=== PATIENT | female | born 1940 | race American Indian/Alaskan Native ===

== ENCOUNTER 2017-01-20 11:37 | Inpatient (IN) | payer MEDICARE ==
--- NOTE | 2017-01-20 13:12 | Emergency Department Report ---
ED Lower Extremity HPI - General Chief Complaint: Extremity Injury, Lower Stated Complaint: FALL Time Seen by Provider: 01/20/17 12:53 Source: EMS Mode of arrival: Stretcher Limitations: No Limitations - History of Present Illness Initial Comments: 76-year-old female the past smoking history of arthritis, hypertension, and elevated cholesterol presents to the Hospital complaining of left hip injury and pain since fall last night. Patient was adjusting the shower curtain when she fell landing on her left hip. Patient was assisted up by her family members. Positive pain with ambulation since. Patient was able to ambulate well using a ladder as a crutch for assistance but today was unable to ambulate at all secondary to pain to the left hip. Pain is 0 at rest and rated 8/10 intensity with movement. Patient denies head trauma or other injury. Prior to injury patient was able to ambulate without assistance. - Related Data Allergies Allergy/AdvReac Type Severity Reaction Status Date / Time No Known Allergies Allergy Unverified 01/20/17 12:21 ED Review of Systems ROS: Stated complaint: FALL Other details as noted in HPI Comment: All other systems reviewed and negative Other: Constitutional: No fevers chills Eyes: No eye pain visual changes ENT: No ear pain or throat pain Neck: Denies pain Respiratory: Denies cough wheezing shortness of breath Cardiovascular: Denies chest pain, palpitations, syncope GI: Denies abdominal pain, nausea, vomiting, diarrhea : Denies dysuria Musculoskeletal: As per HPI Skin: Denies rash, lesions, erythema Neurologic: Denies headache, numbness, weakness Psychiatric: Denies suicidal ideation, hallucinations ED Past Medical Hx - Past Medical History Hx Hypertension: Yes Hx Arthritis: Yes Additional medical history: high cholesterol - Surgical History Additional Surgical History: 3 c sections - Social History Smoking Status: Current Every Day Smoker Substance Use Type: None ED Physical Exam - General Limitations: No Limitations - Other Other exam information: General: No limitations, patient is alert in no acute distress Head exam: Atraumatic, normocephalic Eyes exam: Normal appearance, pupils equal reactive to light, extraocular movements intact ENT: Moist mucous membrane, normal oropharynx Neck exam: Normal inspection, full range of motion, no meningismus nontender Respiratory exam: Clear to auscultation bilateral, no wheezes, rales, crackles Cardiovascular: Normal rate and rhythm, normal heart sounds Abdomen: Soft, nondistended, and nontender, with normal bowel sounds, no rebound, or guarding Extremity: Left hip is shortened. Pain with movement to the left hip. Unable to palpate pulses on the left however, pulses identified with doppler Back: Normal Inspection, full range of motion, no tenderness Neurologic: Alert, oriented x3, cranial nerves intact, no motor or sensory deficit Psychiatric: normal affect, normal mood Skin: Warm, dry, intact ED Course Vital Signs 01/20/17 12:45 Temperature 98.4 F Pulse Rate 77 Respiratory 18 Rate Blood Pressure 145/67 [Left] O2 Sat by Pulse 96 Oximetry - Reevaluation(s) Reevaluation #1: 01/20/17 13:11 Patient declined offer for pain medication at this time - Consultations Consultation #1: 01/20/17 13:40 Remy cabinet professional ortho paged, message left on phone 01/20/17 14:07 Remy called back and will consult ED Lower Extremity MDM - Lab Data Result diagrams: 01/20/17 13:05 01/20/17 13:05 Lab Results 01/20/17 01/20/17 01/20/17 Range/Units 13:05 13:05 13:05 WBC 9.3 (4.5-11.0) K/mm3 RBC 4.56 (3.65-5.03) M/mm3 Hgb 13.0 (10.1-14.3) gm/dl Hct 38.0 (30.3-42.9) % MCV 83 (79-97) fl MCH 28 (28-32) pg MCHC 34 (30-34) % RDW 15.4 H (13.2-15.2) % Plt Count 163 (140-440) K/mm3 Lymph % (Auto) 11.7 L (13.4-35.0) % [place] % (Auto) 2.7 (0.0-7.3) % Eos % (Auto) 1.2 (0.0-4.3) % Baso % (Auto) 0.4 (0.0-1.8) % Lymph # 1.1 L (1.2-5.4) K/mm3 [place] # 0.2 (0.0-0.8) K/mm3 Eos # 0.1 (0.0-0.4) K/mm3 Baso # 0.0 (0.0-0.1) K/mm3 Seg Neutrophils % 84.0 H (40.0-70.0) % Seg Neutrophils # 7.8 H (1.8-7.7) K/mm3 PT 13.5 (12.2-14.9) Sec. INR 1.04 (0.87-1.13) APTT 31.4 (24.2-36.6) Sec. Sodium 139 (137-145) mmol/L Potassium 3.7 (3.6-5.0) mmol/L Chloride 97.3 L (98-107) mmol/L Carbon Dioxide 28 (22-30) mmol/L Anion Gap 17 mmol/L BUN 13 (7-17) mg/dL Creatinine 0.8 (0.7-1.2) mg/dL Estimated GFR > 60 ml/min BUN/Creatinine Ratio 16.25 % Glucose 106 H (65-100) mg/dL Calcium 9.7 (8.4-10.2) mg/dL - EKG Data -: EKG Interpreted by Me (sinus rate 73 septal Q waves no ST elevation [place] ) - EKG Data When compared to previous EKG there are: previous EKG unavailable - Radiology Data Radiology results: image reviewed (left hip x-ray: Left hip fracture subcapital) - Medical Decision Making Patient will need admission to the hospital for treatment of left hip fracture - Differential Diagnosis Fracture, contusion, sprain Critical Care Time: No Critical care attestation.: If time is entered above; I have spent that time in minutes in the direct care of this critically ill patient, excluding procedure time. ED Disposition Clinical Impression: Closed left hip fracture, Fall in elderly patient, Arthritis, Hypertension Disposition: OP ADMIT IP TO THIS HOSP Is pt being admited?: Yes Condition: Stable Time of Disposition: 14:01 (Dr Zafar, Hosp)
--- NOTE | 2017-01-20 13:14 | XRay Report ---
LEFT HIP, 2 views: History: Left hip pain after fall. Findings: A subtle subcapital fracture is suspected at the left femoral neck. The acetabulum is intact. No significant joint pathology. IMPRESSION: Left femoral neck fracture.
[2017-01-20 13:27] LABS: Basophils % (Auto) 0.4 % (0.0-1.8); Eosinophils % (Auto) 1.2 % (0.0-4.3); Mean Corpuscular HGB Conc 34 % (30-34); Mean Corpuscular Hemoglobin 28 pg (28-32); Mean Corpuscular Volume 83 fl (79-97); Platelet Count 163 K/mm3 (140-440); Red Blood Count 4.56 M/mm3 (3.65-5.03); Red Cell Distribution Width 15.4 % (13.2-15.2); White Blood Count 9.3 K/mm3 (4.5-11.0)
[2017-01-20 13:37] LABS: INR 1.04 (0.87-1.13); Partial Thromboplastin Time 31.4 Sec. (24.2-36.6)
[2017-01-20 13:58] LABS: Anion Gap 17 mmol/L; BUN/Creatinine Ratio 16.25; Blood Urea Nitrogen 13 mg/dL (7-17); Calcium 9.7 mg/dL (8.4-10.2); Carbon Dioxide 28 mmol/L (22-30); Chloride 97.3 mmol/L (98-107); Glucose 106 mg/dL (65-100); Potassium 3.7 mmol/L (3.6-5.0); Sodium 139 mmol/L (137-145)
--- NOTE | 2017-01-20 16:26 | History and Physical Report ---
History of Present Illness Date of examination: 01/20/17 Chief complaint: Fall down injury History of present illness: 76 year old -[place] female with past medical history significant for hypertension presented to emergency department complaining of fall down injury yesterday evening while she was trying to fix this shower. She failed on her left side and hit her hip. After that she started to feel pain in the right hip. The pain was sharp 8/10 intensity that worsened with movement. No bleeding or most of consciousness. She presented to the emergency department and x-rays showed she has fracture of the left hip. Dr. Alberto from orthopedics was consulted by ED doctor. REVIEW OF SYSTEMS: GENERAL: no weight change, no fatigue, no fever HEAD: no head ache EYES: no blurry vision, no acute visual loss EARS: no hearing loss, no discharge, no earache NOSE: no stuffiness, no sneezing, no discharge MOUTH, THROAT AND NECK: no bleeding gums, no sore throat, no swollen neck CARDIAC: no palpitations, no dyspnea on exertion, no orthopnea, no PND, no edema , no chest pain RESPIRATORY: no shortness of breath, no wheeze, no cough, no sputum, no hemoptysis, no asthma GI: no decreased appetite, no nausea, no vomiting, no dysphagia, no diarrhea, no constipation, no abdominal pain URINARY: no change in frequency, no urgency, no polyuria, no hematuria, no incontinence MUSCULOSKELETAL: no muscle weakness, no pain, no joint stiffness NEUROLOGIC: no loss of sensation/numbness, no tingling, no tremors, no weakness/ paralysis HEMATOLOGIC: no anemia, no easy bruising SKIN: no rashes ENDOCRINE: no heat/cold intolerance, no polyuria, no polydipsia, no thyroid problems, no diabetes PSYCHIATRIC: no anxiety, no depression, no suicidal ideations Past History Past Medical History: hypertension Past Surgical History: Social history: smoking (one pack per day cigarettes), full code. denies: alcohol abuse, prescription drug abuse, IV drug use Family history: no significant family history Medications and Allergies Allergies Allergy/AdvReac Type Severity Reaction Status Date / Time No Known Allergies Allergy Unverified 01/20/17 12:21 Exam - Physical Exam Narrative exam: Not in cardiopulmonary distress. The patient appeared well nourished and normally developed. Vital signs as documented. Head exam is unremarkable. No scleral icterus . Neck is without jugular venous distension, thyromegaly, or carotid bruits. Lungs are clear to auscultation. Cardiac exam reveals regular rate and Rhythm. First and second heart sounds normal. No murmurs, rubs or gallops. Abdominal exam reveals normal bowel sounds, no masses, no organomegaly and no aortic enlargement. Extremities pain and tenderness in the left hip. CLOTHES MODEL: Alert and oriented 3. No focal weakness. - Constitutional Vitals: Temp Pulse Resp BP Pulse Ox 98.4 F 77 18 145/67 96 01/20/17 12:45 01/20/17 12:45 01/20/17 12:45 01/20/17 12:45 01/20/17 12:45 Results - Labs CBC & Chem 7: 01/20/17 13:05 01/20/17 13:05 Labs: Laboratory Last Values WBC 9.3 K/mm3 (4.5-11.0) 01/20/17 13:05 RBC 4.56 M/mm3 (3.65-5.03) 01/20/17 13:05 Hgb 13.0 gm/dl (10.1-14.3) 01/20/17 13:05 Hct 38.0 % (30.3-42.9) 01/20/17 13:05 MCV 83 fl (79-97) 01/20/17 13:05 MCH 28 pg (28-32) 01/20/17 13:05 MCHC 34 % (30-34) 01/20/17 13:05 RDW 15.4 % (13.2-15.2) H 01/20/17 13:05 Plt Count 163 K/mm3 (140-440) 01/20/17 13:05 Lymph % (Auto) 11.7 % (13.4-35.0) L 01/20/17 13:05 [place] % (Auto) 2.7 % (0.0-7.3) 01/20/17 13:05 Eos % (Auto) 1.2 % (0.0-4.3) 01/20/17 13:05 Baso % (Auto) 0.4 % (0.0-1.8) 01/20/17 13:05 Lymph # 1.1 K/mm3 (1.2-5.4) L 01/20/17 13:05 [place] # 0.2 K/mm3 (0.0-0.8) 01/20/17 13:05 Eos # 0.1 K/mm3 (0.0-0.4) 01/20/17 13:05 Baso # 0.0 K/mm3 (0.0-0.1) 01/20/17 13:05 Seg Neutrophils % 84.0 % (40.0-70.0) H 01/20/17 13:05 Seg Neutrophils # 7.8 K/mm3 (1.8-7.7) H 01/20/17 13:05 PT 13.5 Sec. (12.2-14.9) 01/20/17 13:05 INR 1.04 (0.87-1.13) 01/20/17 13:05 APTT 31.4 Sec. (24.2-36.6) 01/20/17 13:05 Sodium 139 mmol/L (137-145) 01/20/17 13:05 Potassium 3.7 mmol/L (3.6-5.0) 01/20/17 13:05 Chloride 97.3 mmol/L (98-107) L 01/20/17 13:05 Carbon Dioxide 28 mmol/L (22-30) 01/20/17 13:05 Anion Gap 17 mmol/L 01/20/17 13:05 BUN 13 mg/dL (7-17) 01/20/17 13:05 Creatinine 0.8 mg/dL (0.7-1.2) 01/20/17 13:05 Estimated GFR > 60 ml/min 01/20/17 13:05 BUN/Creatinine Ratio 16.25 % 01/20/17 13:05 Glucose 106 mg/dL (65-100) H 01/20/17 13:05 Calcium 9.7 mg/dL (8.4-10.2) 01/20/17 13:05 Blood Type O POSITIVE 01/20/17 13:58 Antibody Screen TNR 01/20/17 13:58 MATT Antibody Screen Negative 01/20/17 13:58 Assessment and Plan Assessment and plan: Left hip fracture Fall HTN Active tobacco use -Orthopedic surgeon consulted for left hip fracture fixation -PT consult, case management consult -Patient advised cessation of smoking -We'll resume home blood pressure medication DVT prophylaxis -Heparin Disposition -Admit to surgical floor Advance Directives: Yes VTE prophylaxis?: Chemical Plan of care discussed with patient/family: Yes
[2017-01-20] MEDS ORDERED: HABITROL TD ONE (16:30)
[2017-01-20 17:40] LABS: Bilirubin,Urine NEG (Negative); Blood,Urine NEG (Negative); Ketones,Urine NEG (Negative); Leukocyte Esterase,Urine SM (Negative); Nitrite,Urine NEG (Negative); Protein,Urine <15 mg/dL mg/dL (Negative); Urobilinogen,Urine < 2.0 mg/dL (<2.0)
[2017-01-20] MEDS ORDERED: TYLENOL PO ONE (19:14)
[2017-01-20] MEDS ORDERED: TYLENOL ONE (19:16)
[2017-01-20] MEDS: HEPARIN SUB-Q SCH (22:36)
--- NOTE | 2017-01-21 02:34 | Admit Criteria Form ---
Admission Criteria Documentation: MUSCULOSKELETAL DISEASE GRG Clinical Indications for Admission to Inpatient Care (Place 'X' for any and all applicable criteria): Hospital admission is needed for appropriate care of the patient because of 1 or more of the following: [ X]I. Fracture, dislocation, or other musculoskeletal injury requiring inpatient care(medical) as indicated by 1 or more of the following(4)(5)(6)(7) [ ]a) Vertebral fracture requiring observation for instability or neurologic compromise (8) [ ]b) Compartment syndrome (proven or cannot be ruled out during observation level of care) (9) [ ]c) Limb-threatening injury [ X]d) Major injury requiring inpatient stabilization such as traction initiation or external fixation before internal fixation or closure of complex or open fracture [ ]e) Major injury requiring inpatient treatment after emergency or observation level care (as appropriate) [ ]f) Severe pain requiring acute inpatient management [ ]g) Injury with suspicion of abuse or neglect (eg., child, dependent elderly) [ ]II. Newly diagnosed or suspected bone, joint, or orthopedic device infection (e.g., osteomyelitis, septic arthritis) needing 1 or more of the following(1)(2)(3) [ ]a) IV antibiotics that cannot be initiated in other than inpatient setting (e.g., patient too unstable or home infusion not available) [ ]b) Device removal or replacement [ ]c) Bone or soft tissue debridement [ ]d) Joint drainage (drain placement or repetitive aspirations) [ ]III. Severe rheumatologic disease (e.g., systemic lupus erythematosus, rheumatoid arthritis) with complications or comorbidities (Also use Optimal Recovery Care Criteria or General Recovery Criteria as appropriate on the basis of predominant condition), including 1 or more of the following( 10)(11)(12)(13) [ ]a) Severe infection (e.g., PROOF SORTER infection, sepsis) (14) [ ]b) Respiratory complications, including 1 or more of the following : [ ]i) Pleural effusion with respiratory compromise [ ]ii) Pulmonary hypertension with congestive failure [ ]iii) Respiratory failure [ ]iv) Pulmonary hemorrhage (15) [ ]c) Hematologic disease, including 1 or more of the following: [ ]i) Coagulopathy with bleeding [ ]ii) Thrombosis with hypercoagulable state [ ]iii) Thrombotic thrombocytopenic purpura [ ]d) Cerebritis with seizures, psychosis, or other severe abnormalities [ ]e) Vertebral destruction with monitoring needed for cervical myelopathy& possible respiratory compromise [ ]f) Exacerbation that requires inpatient treatment (e.g., intravenous immunosuppression) (16) [ ]g) Acute renal failure [ ]h) Cerebritis with seizures, psychosis, Altered mental status, or other neurologic abnormalities [ ]i) Pericardial effusion with tamponade [ ]j) Vertebral destruction, with monitoring needed for cervical myelopathy and possible respiratory compromise [ ]IV. Severe vasculitis with complications or comorbidities (Also use Optimal Recovery Care Criteria General Recovery Criteria as appropriate on the basis of predominant condition), including 1 or more of the following(11)(12)(17)(18)(19)(20) [ ]a) Exacerbation that requires inpatient treatment (e.g., intravenous immunosuppression) (19)(21) [ ]b) Pulmonary hemorrhage (15) [ ]c) PROOF SORTER vasculitis with seizures, psychosis, Altered mental status that is severe or persistent, or other severe abnormalities (22) [ ]d) Cerebral infarction [ ]e) Gastrointestinal ischemia [ ]f) Gangrene or threatened amputation [ ]g) Renal failure (16) [ ]h) Other significant complications of vasculitis ( eg., tissue or organ ischemia, organ dysfunction ) [ ]V. Severe myopathy as indicated by 1 or more of the following (28)(29) [ ]a) New onset of airway compromise or inability to swallow [ ]b) Respiratory deterioration with observation needed for impending respiratory failure [ ]c) Exacerbation that requires inpatient treatment (e.g., intravenous immunosuppression) [ ]. Severe crystal gout (arthropathy) indicated by 1 or more of the following (23)(24) [ ]a) Severe pain requiring acute inpatient management [ ]b) Exacerbation that requires inpatient treatment (e.g., intravenous treatment) [ ]VII.Rhabdomyolysis and 1 or more of the following (25)(26)(27) [ ]a) Acute renal failure [ ]b) Need for intravenous hydration after emergency or observation level care (as appropriate) [ ]c) Inability to maintain oral hydration [ ]d) Change in mental status [ ]e) Electrolyte abnormality that remains after emergency or observation level care (as appropriate) [ ]VIII Post amputation complication, as indicated by ANY ONE of the following [ ]a) Infection [ ]b) Dehiscence [ ]c) Myodesis failure [ ]IX. Severe pain requiring acute inpatient management due to musculoskeletal condition [ ]X. Musculoskeletal Disease and ALL of the following: [ ]a) Symptom or finding for which emergency and observation care have failed or are not considered appropriate (Use General Criteria: Observation Care as appropriate) [ ]b) Presence of ANY ONE of the following [ ]i) A General Admission Criteria [ ]ii) A Pediatric General Admission Criteria The original [facility] [employer] content created by [facility] [employer] has been revised. The portions of the content which have been revised are identified through the use of italic text or in bold, and [facility] has neither reviewed nor approved the modified material. All other unmodified content is copyright [facility] [employer]. Please see references footnoted in the original [facility] edition 2016 Admission Criteria Met: Yes
[2017-01-21] MEDS: HEPARIN SUB-Q SCH ×3 (06:16→22:53)
[2017-01-21 07:13] LABS: Basophils % (Auto) 0.1 % (0.0-1.8); Hematocrit 36.5 % (30.3-42.9); Hemoglobin 12.3 gm/dl (10.1-14.3); Mean Corpuscular HGB Conc 34 % (30-34); Mean Corpuscular Hemoglobin 28 pg (28-32); Mean Corpuscular Volume 82 fl (79-97); Platelet Count 138 K/mm3 (140-440); Red Blood Count 4.42 M/mm3 (3.65-5.03); Red Cell Distribution Width 15.3 % (13.2-15.2); White Blood Count 7.7 K/mm3 (4.5-11.0)
[2017-01-21 07:15] LABS: Blood Urea Nitrogen 12 mg/dL (7-17); Calcium 9.6 mg/dL (8.4-10.2); Carbon Dioxide 27 mmol/L (22-30); Glucose 104 mg/dL (65-100)
[2017-01-21 07:16] LABS: Anion Gap 18 mmol/L; Chloride 96.2 mmol/L (98-107); Potassium 3.5 mmol/L (3.6-5.0); Sodium 138 mmol/L (137-145)
--- NOTE | 2017-01-21 11:53 | XRay Report ---
AP CHEST: HISTORY: Fever Mild prominence of the bronchovascular structures is demonstrated bilaterally. This could represent chronic interstitial changes or mild pulmonary edema. There is no evidence for consolidation, pleural effusion or pneumothorax. Heart size is within normal limits. IMPRESSION: Mild congestive changes.
[2017-01-21] MEDS: TENORMIN PO SCH (13:57)
[2017-01-21] MEDS: MORPHINE IV PRN (16:30)
--- NOTE | 2017-01-21 22:35 | Progress Note ---
Assessment and Plan Assessment and plan: 76 year old -[place] female with past medical history significant for hypertension presented to emergency department complaining of fall down injury yesterday evening while she was trying to fix this shower. She failed on her left side and hit her hip. After that she started to feel pain in the right hip. The pain was sharp 8/10 intensity that worsened with movement. No bleeding or most of consciousness. She presented to the emergency department and x-rays showed she has fracture of the left hip. Dr. Alberto from orthopedics was consulted by ED doctor. * Left hip fracture following mechanical fall * Htn * Tobacco abuse * left Hip pain * Dyslipidemia * FEVER-1 EPISODE, NO Obvious infectious source Plan: * supportive care. * Discussed with Nursing, although documented temp early in the morning, no report was given, patient currently afebrile,. If any fever reoccurs will pursue sepsis work up * Start Home Bp MEDS * 15 Mins counselling provided on need to quit tobacco use, patient given resources, she verbalized understanding * Check cxr * Await Ortho Input * NPO after Midnight * DVT/GI proph * Plan of care discussed with patient in detail History Interval history: Patient seen and examined, in no acute distress. she reports congested cough, non productive. ongoing for about a week. she reports mild pain at left hip area. nursing documented an episode of fever that resolved quickly, no reoccurrence. Hospitalist Physical - Constitutional Vitals: Temp Pulse Resp BP Pulse Ox 97.8 F 77 20 141/75 97 01/21/17 15:00 01/21/17 15:00 01/21/17 15:00 01/21/17 15:00 01/21/17 15:00 General appearance: Present: no acute distress, cachectic - EENT Eyes: Present: PERRL, EOM intact ENT: hearing intact, poor dentition - Neck Neck: Present: supple, normal ROM - Respiratory Respiratory effort: normal Respiratory: bilateral: diminished - Cardiovascular Rhythm: regular Heart Sounds: Present: S1 & S2. Absent: systolic murmur - Extremities Extremities: no ischemia, pulses intact, pulses symmetrical, No edema Extremity abnormal: tenderness (left hip) Peripheral Pulses: within normal limits - Abdominal General gastrointestinal: soft, non-tender, non-distended, normal bowel sounds - Integumentary Integumentary: Present: clear, warm, dry - Psychiatric Psychiatric: appropriate mood/affect - Neurologic Neurologic: CNII-XII intact - Allied Health Allied health notes reviewed: nursing Results - Labs CBC & Chem 7: 01/21/17 05:41 01/21/17 05:41 Labs: Laboratory Last Values WBC 7.7 K/mm3 (4.5-11.0) 01/21/17 05:41 RBC 4.42 M/mm3 (3.65-5.03) 01/21/17 05:41 Hgb 12.3 gm/dl (10.1-14.3) 01/21/17 05:41 Hct 36.5 % (30.3-42.9) 01/21/17 05:41 MCV 82 fl (79-97) 01/21/17 05:41 MCH 28 pg (28-32) 01/21/17 05:41 MCHC 34 % (30-34) 01/21/17 05:41 RDW 15.3 % (13.2-15.2) H 01/21/17 05:41 Plt Count 138 K/mm3 (140-440) L 01/21/17 05:41 Lymph % (Auto) 14.4 % (13.4-35.0) 01/21/17 05:41 [place] % (Auto) 4.1 % (0.0-7.3) 01/21/17 05:41 Eos % (Auto) 2.0 % (0.0-4.3) 01/21/17 05:41 Baso % (Auto) 0.1 % (0.0-1.8) 01/21/17 05:41 Lymph # 1.1 K/mm3 (1.2-5.4) L 01/21/17 05:41 [place] # 0.3 K/mm3 (0.0-0.8) 01/21/17 05:41 Eos # 0.2 K/mm3 (0.0-0.4) 01/21/17 05:41 Baso # 0.0 K/mm3 (0.0-0.1) 01/21/17 05:41 Seg Neutrophils % 79.4 % (40.0-70.0) H 01/21/17 05:41 Seg Neutrophils # 6.1 K/mm3 (1.8-7.7) 01/21/17 05:41 PT 13.5 Sec. (12.2-14.9) 01/20/17 13:05 INR 1.04 (0.87-1.13) 01/20/17 13:05 APTT 31.4 Sec. (24.2-36.6) 01/20/17 13:05 Sodium 138 mmol/L (137-145) 01/21/17 05:41 Potassium 3.5 mmol/L (3.6-5.0) L 01/21/17 05:41 Chloride 96.2 mmol/L (98-107) L 01/21/17 05:41 Carbon Dioxide 27 mmol/L (22-30) 01/21/17 05:41 Anion Gap 18 mmol/L 01/21/17 05:41 BUN 12 mg/dL (7-17) 01/21/17 05:41 Creatinine 0.8 mg/dL (0.7-1.2) 01/21/17 05:41 Estimated GFR > 60 ml/min 01/21/17 05:41 BUN/Creatinine Ratio 15.00 % 01/21/17 05:41 Glucose 104 mg/dL (65-100) H 01/21/17 05:41 Calcium 9.6 mg/dL (8.4-10.2) 01/21/17 05:41 Urine Color Yellow (Yellow) 01/20/17 17:22 Urine Turbidity Clear (Clear) 01/20/17 17:22 Urine pH 7.0 (5.0-7.0) 01/20/17 17:22 Ur Specific [place] 1.010 (1.003-1.030) 01/20/17 17:22 Urine Protein <15 mg/dl mg/dL (Negative) 01/20/17 17:22 Urine Glucose (UA) Neg mg/dL (Negative) 01/20/17 17:22 Urine Ketones Neg mg/dL (Negative) 01/20/17 17:22 Urine Blood Neg (Negative) 01/20/17 17:22 Urine Nitrite Neg (Negative) 01/20/17 17:22 Urine Bilirubin Neg (Negative) 01/20/17 17:22 Urine Urobilinogen < 2.0 mg/dL (<2.0) 01/20/17 17:22 Ur Leukocyte Esterase Sm (Negative) 01/20/17 17:22 Urine WBC (Auto) 3.0 /HPF (0.0-6.0) 01/20/17 17:22 Urine RBC (Auto) 2.0 /HPF (0.0-6.0) 01/20/17 17:22 U Epithel Cells (Auto) 1.0 /HPF (0-13.0) 01/20/17 17:22 Blood Type O POSITIVE 01/20/17 13:58 Antibody Screen TNR 01/20/17 13:58 MATT Antibody Screen Negative 01/20/17 13:58 - Imaging and Cardiology Chest x-ray: image reviewed (mild congestion)
[2017-01-21] MEDS ORDERED: PROVENTIL IH PRN (22:42)
[2017-01-21] MEDS: ZOCOR PO SCH (22:53)
[2017-01-22] MEDS: HEPARIN SUB-Q SCH ×3 (06:27→21:21)
[2017-01-22] MEDS: HCTZ PO SCH (09:27)
[2017-01-22] MEDS: NORVASC PO SCH (09:27)
[2017-01-22] MEDS: ZESTRIL PO SCH (09:27)
[2017-01-22] MEDS: TENORMIN PO SCH (09:28)
--- NOTE | 2017-01-22 09:43 | Consultation ---
History of Present Illness - HPI Consult date: 01/22/17 Consult reason: fracture History of present illness: 76-year-old female who complains of left hip pain after a fall in her shower 2 days ago states she was unable to place weight on the left side came to the emergency room where x-rays were taken revealing a displaced femoral neck fracture she denies any other complaints Past History Past Medical History: hypertension Past Surgical History: Social history: smoking (one pack per day cigarettes), full code. denies: alcohol abuse, prescription drug abuse, IV drug use Family history: no significant family history Medications and Allergies Allergies Allergy/AdvReac Type Severity Reaction Status Date / Time Sulfa (Sulfonamide Allergy Mild Itching Verified 01/20/17 21:31 Antibiotics) Home Medications Medication Instructions Recorded Confirmed Last Taken Type Atenolol [Tenormin] 100 mg PO DAILY 01/20/17 01/20/17 01/19/17 History Hydrochlorothiazide [HCTZ] 25 mg PO QDAY 01/20/17 01/20/17 01/19/17 History Lisinopril [Zestril TAB] 40 mg PO QDAY 01/20/17 01/20/17 01/19/17 History Simvastatin [Zocor TAB] 10 mg PO QHS 01/20/17 01/20/17 01/19/17 History amLODIPine [Norvasc] 5 mg PO DAILY 01/20/17 01/20/17 01/19/17 History Active Meds: Active Medications Albuterol (Proventil) 2.5 mg IH Q4HRT PRN PRN Reason: Shortness Of Breath Amlodipine Besylate (Norvasc) 5 mg PO DAILY FOR[facility]LY [facility], [facility]1983 Last Admin: 01/22/17 09:27 Dose: 5 mg Atenolol (Tenormin) 100 mg PO QDAY FOR[facility]LY [facility], [facility]1983 Last Admin: 01/22/17 09:28 Dose: 100 mg Heparin Sodium (Porcine) (Heparin) 5,000 unit SUB-Q Q8HR [facility], [facility]1983 Last Admin: 01/22/17 06:27 Dose: Not Given Hydrochlorothiazide (Hctz) 25 mg PO QDAY FOR[facility], [facility] Last Admin: 01/22/17 09:27 Dose: 25 mg Lisinopril (Zestril) 40 mg PO QDAY FOR[facility] Last Admin: 01/22/17 09:27 Dose: 40 mg Morphine Sulfate (Morphine) 2 mg IV Q6HR PRN PRN Reason: Pain, Moderate (4-6) Last Admin: 01/21/17 16:30 Dose: 2 mg Simvastatin (Zocor) 10 mg PO QHS JOVON Last Admin: 01/21/17 22:53 Dose: 10 mg Physical Examination - Physical exam Narrative exam: Significant musculoskeletal exam reveals apparent shortening of the left lower extremity there is decreased active range of motion she was tender about the groin with mild to moderate swelling passive range of motion limited distal neurovascular status intact A plain x-rays of the pelvis were reviewed by me and show a displaced left femoral neck fracture no other obvious pathology was seen Eyes: PERRL ENT: Positive: clear oral mucosa Respiratory effort: normal Respiratory: bilateral: CTA Rhythm: regular Heart Sounds: Positive: S1 & S2 General gastrointestinal: Positive: soft, non-tender, non-distended, normal bowel sounds Integumentary: clear, warm, dry Neurologic: Positive: CNII-XII intact, moves all extremities, gait normal. Negative: focal deficits - Cervical Spine Neck pain: none Tenderness with palpation: none Full ROM: yes ROM: flexion: normal ROM: extension: normal ROM: rotation right: normal ROM: rotation left: normal ROM: lateral flexion right: normal ROM: lateral flexion left: normal - Lumbar Spine Back pain: none Tenderness with palpation: none Appearance: normal Full ROM: yes ROM: flexion: normal ROM: extension: normal ROM: rotation right: normal ROM: rotation left: normal ROM: lateral flexion right: normal ROM: lateral flexion left: normal Assessment and Plan Displaced left femoral neck fracture Recommendations patient advised to undergo partial hip replacement with bipolar arthroplasty
[2017-01-22] MEDS ORDERED: ZESTRIL PO SCH (10:00)
--- NOTE | 2017-01-22 12:34 | Anesthesia Consultation ---
Anesthesia Consult and Med Hx Date of service: 01/22/17 - Airway Anesthetic Teeth Evaluation: Poor (multiple missing, broken teeth in the bottom) , Dentures (upper) ROM Head & Neck: Adequate Mental/Hyoid Distance: Adequate Mallampati Class: Class II Intubation Access Assessment: Probably Good - Pre-Operative Health Status ASA Pre-Surgery Classification: ASA3 Proposed Anesthetic Plan: Spinal - Pulmonary Hx Smoking: Yes (1 p/d x 62 years) - Cardiovascular System Hx Hypertension: Yes Hx Coronary Artery Disease: No (high cholesterol) - Central Nervous System Hx Psychiatric Problems: No - Other Systems Hx Cancer: No
[2017-01-22] MEDS ORDERED: VERSED IV PRN (12:39)
[2017-01-22] MEDS: NACL 0.9% 1000 ML 1,000 ML IV SCH (12:52)
[2017-01-22] MEDS ORDERED: PEPCID IV NR (13:00)
[2017-01-22] MEDS ORDERED: ANCEF/STERILE WATER 2 GM/20 ML IV NR (13:40)
--- NOTE | 2017-01-22 13:40 | Progress Note ---
Assessment and Plan Assessment and plan: 76 year old -[place] female with past medical history significant for hypertension presented to emergency department complaining of fall down injury yesterday evening while she was trying to fix this shower. She failed on her left side and hit her hip. After that she started to feel pain in the right hip. The pain was sharp 8/10 intensity that worsened with movement. No bleeding or most of consciousness. She presented to the emergency department and x-rays showed she has fracture of the left hip. Dr. Alberto from orthopedics was consulted by ED doctor. * Displaced left femoral neck fracture * Htn * Tobacco abuse * left Hip pain * Dyslipidemia * Bronchitis Plan: * supportive care. * Started on empiric Augmentin * Continue Home Bp MEDS * 15 Mins counselling provided on need to quit tobacco use, patient given resources, she verbalized understanding * Check cxr * Ortho Input -Recommendations patient advised to undergo partial hip replacement with bipolar arthroplasty * PT/OT pos op. * DVT/GI proph * Plan of care discussed with patient in detail History Interval history: Patient seen and examined, in no acute distress. still with intermittent cough but better today, has been ongoing for about a week. she reports mild pain at left hip area. nursing documented Hospitalist Physical - Physical exam Narrative exam: VITAL SIGNS: Reviewed. GENERAL: The patient appeared well nourished and normally developed. Vital signs as documented. HEAD: No signs of head trauma. EYES: Pupils are equal. Extraocular motions intact. EARS: Hearing grossly intact. MOUTH: Oropharynx is normal. NECK: No adenopathy, no JVD. CHEST: Chest with clear breath sounds bilaterally. No wheezes, rales, or rhonchi. CARDIAC: Regular rate and rhythm. S1 and S2, without murmurs, gallops, or rubs. VASCULAR: No Edema. Peripheral pulses normal and equal in all extremities. ABDOMEN: Soft, without detectable tenderness. No sign of distention. No rebound or guarding, and no masses palpated. Bowel Sounds normal. MUSCULOSKELETAL: Left lower extremity rotated and shortened. Tender at the hip. No cyanosis or clubbing noted. NEUROLOGIC EXAM: Alert and oriented x 3. No focal sensory or strength deficits. Speech normal. Follows commands. PSYCHIATRIC: Mood normal. SKIN: No rash or lesions. - Constitutional Vitals: Temp Pulse Resp BP Pulse Ox 99.7 F H 75 24 128/72 100 01/22/17 11:45 01/22/17 11:45 01/22/17 11:45 01/22/17 11:45 01/22/17 11:45 General appearance: Present: no acute distress, cachectic Results - Labs CBC & Chem 7: 01/21/17 05:41 01/21/17 05:41 Labs: Laboratory Last Values WBC 7.7 K/mm3 (4.5-11.0) 01/21/17 05:41 RBC 4.42 M/mm3 (3.65-5.03) 01/21/17 05:41 Hgb 12.3 gm/dl (10.1-14.3) 01/21/17 05:41 Hct 36.5 % (30.3-42.9) 01/21/17 05:41 MCV 82 fl (79-97) 01/21/17 05:41 MCH 28 pg (28-32) 01/21/17 05:41 MCHC 34 % (30-34) 01/21/17 05:41 RDW 15.3 % (13.2-15.2) H 01/21/17 05:41 Plt Count 138 K/mm3 (140-440) L 01/21/17 05:41 Lymph % (Auto) 14.4 % (13.4-35.0) 01/21/17 05:41 [place] % (Auto) 4.1 % (0.0-7.3) 01/21/17 05:41 Eos % (Auto) 2.0 % (0.0-4.3) 01/21/17 05:41 Baso % (Auto) 0.1 % (0.0-1.8) 01/21/17 05:41 Lymph # 1.1 K/mm3 (1.2-5.4) L 01/21/17 05:41 [place] # 0.3 K/mm3 (0.0-0.8) 01/21/17 05:41 Eos # 0.2 K/mm3 (0.0-0.4) 01/21/17 05:41 Baso # 0.0 K/mm3 (0.0-0.1) 01/21/17 05:41 Seg Neutrophils % 79.4 % (40.0-70.0) H 01/21/17 05:41 Seg Neutrophils # 6.1 K/mm3 (1.8-7.7) 01/21/17 05:41 PT 13.5 Sec. (12.2-14.9) 01/20/17 13:05 INR 1.04 (0.87-1.13) 01/20/17 13:05 APTT 31.4 Sec. (24.2-36.6) 01/20/17 13:05 Sodium 138 mmol/L (137-145) 01/21/17 05:41 Potassium 3.5 mmol/L (3.6-5.0) L 01/21/17 05:41 Chloride 96.2 mmol/L (98-107) L 01/21/17 05:41 Carbon Dioxide 27 mmol/L (22-30) 01/21/17 05:41 Anion Gap 18 mmol/L 01/21/17 05:41 BUN 12 mg/dL (7-17) 01/21/17 05:41 Creatinine 0.8 mg/dL (0.7-1.2) 01/21/17 05:41 Estimated GFR > 60 ml/min 01/21/17 05:41 BUN/Creatinine Ratio 15.00 % 01/21/17 05:41 Glucose 104 mg/dL (65-100) H 01/21/17 05:41 Calcium 9.6 mg/dL (8.4-10.2) 01/21/17 05:41 Urine Color Yellow (Yellow) 01/20/17 17:22 Urine Turbidity Clear (Clear) 01/20/17 17:22 Urine pH 7.0 (5.0-7.0) 01/20/17 17:22 Ur Specific [place] 1.010 (1.003-1.030) 01/20/17 17:22 Urine Protein <15 mg/dl mg/dL (Negative) 01/20/17 17:22 Urine Glucose (UA) Neg mg/dL (Negative) 01/20/17 17:22 Urine Ketones Neg mg/dL (Negative) 01/20/17 17:22 Urine Blood Neg (Negative) 01/20/17 17:22 Urine Nitrite Neg (Negative) 01/20/17 17:22 Urine Bilirubin Neg (Negative) 01/20/17 17:22 Urine Urobilinogen < 2.0 mg/dL (<2.0) 01/20/17 17:22 Ur Leukocyte Esterase Sm (Negative) 01/20/17 17:22 Urine WBC (Auto) 3.0 /HPF (0.0-6.0) 01/20/17 17:22 Urine RBC (Auto) 2.0 /HPF (0.0-6.0) 01/20/17 17:22 U Epithel Cells (Auto) 1.0 /HPF (0-13.0) 01/20/17 17:22 Blood Type O POSITIVE 01/20/17 13:58 Antibody Screen TNR 01/20/17 13:58 MATT Antibody Screen Negative 01/20/17 13:58
[2017-01-22] MEDS ORDERED: DILAUDID ONE ×2 (14:37→16:03)
[2017-01-22] MEDS ORDERED: DIPRIVAN 10 MG/ML IV ONE (14:37)
[2017-01-22] MEDS ORDERED: XYLOCAINE MPF 2% ONE (14:37)
[2017-01-22] MEDS ORDERED: MARCAINE-EPI 0.5%-1:200,000 INFILTRATI ONE ×2 (14:38→16:35)
[2017-01-22] MEDS ORDERED: TORADOL ONE (14:38)
[2017-01-22] MEDS ORDERED: DEPO-MEDROL ONE (14:38)
[2017-01-22] MEDS ORDERED: MORPHINE ONE (14:39)
[2017-01-22] MEDS ORDERED: ZOFRAN ONE (15:24)
[2017-01-22] MEDS ORDERED: NACL 0.9% 1000 ML 1,000 ML ONE (16:00)
[2017-01-22] MEDS ORDERED: TORADOL IV ONE (16:35)
[2017-01-22] MEDS ORDERED: MORPHINE IM ONE (16:35)
--- NOTE | 2017-01-22 17:24 | Post Anesthesia Evaluation ---
- Post Anesthesia Evaluation Patient Participated: Yes Airway Patent: Yes Stable Respiratory Function: Yes Temp > 96.8F: Yes Pain Manageable: Yes Adequeate Hydration: Yes Anesthesia Complications: No Block Receding Appropriately: Not Applicable
--- NOTE | 2017-01-22 18:25 | Procedure Note ---
Date of procedure: 01/22/17 Pre-op diagnosis: left femoral neck fracture Post-op diagnosis: same Procedure: Procedure - left bipolar hemiarthroplasty Indications - 76-year-old female fell at home in the shower sustaining a displaced femoral neck fracture Procedure She was brought to the OR placed the OR table in supine position following induction and intubation by anesthesia the patient was turned into the right lateral decubitus position next the left hip was prepped and draped in the usual sterile manner. A timeout procedure was done to identify the patient and the proper operative site next lateral incision was made over the greater trochanter and taken down through skin and subcutaneous day fascia vladimir was identified and the incision was carried down in line with the structure next the lower extremity was externally rotated the anterior capsule was entered the fracture site was identified using a small broach the femoral neck was cut in line with the prosthesis. The head fragment was seen still in the acetabulum using a corkscrew instrument head was retrieved and measured. A 48 mm head was chosen using the cookie-cutter and a rasp the proximal medullary canal was reamed to a #9 stem trial sizing was begun. A #9 stem with a neutral neck and a 28 mm head and a 48 mm cup was chosen and hip was reduced and taken through a range of motion and was found to be stable and Trial components were removed Joint was copiously irrigated, The final components were inserted in the correct version hip was taken through a range of motion and was found to be stable. The wound was closed in a standard routine fashion. Dressings were applied the patient tolerated the procedure and there were no complications Anesthesia: GETA Surgeon: BEATRIZ JOHNSON (assistant director of security Kade Gutierrez) Estimated blood loss: other (300 mL) Pathology: none Condition: stable Disposition: PACU
[2017-01-22] MEDS ORDERED: SODIUM CHLORIDE FLUSH SYRINGE 10 ML IV NR (19:00)
[2017-01-22] MEDS: MORPHINE IV PRN (19:38)
[2017-01-22] MEDS: ANCEF/NS 1 GM/50 ML 1 GM/50 ML BAG IV SCH (20:33)
[2017-01-22] MEDS: AUGMENTIN 875 MG PO SCH (21:20)
[2017-01-22] MEDS: ZOCOR PO SCH (21:21)
[2017-01-23] MEDS ORDERED: ANCEF/NS 1 GM/50 ML 1 GM/50 ML BAG IV SCH (04:00)
[2017-01-23] MEDS: ANCEF/NS 1 GM/50 ML 1 GM/50 ML BAG IV SCH (04:03)
[2017-01-23] MEDS: HEPARIN SUB-Q SCH ×3 (05:49→22:57)
[2017-01-23] MEDS: NACL 0.9% 1000 ML 1,000 ML IV SCH ×2 (05:50→05:58)
[2017-01-23 06:48] LABS: Hematocrit 31.5 % (30.3-42.9); Hemoglobin 10.4 gm/dl (10.1-14.3)
--- NOTE | 2017-01-23 09:27 | Progress Note ---
Subjective Date of service: 01/23/17 Principal diagnosis: Displaced femoral fracture Interval history: Patient seen post-op say 1, comfortable, satisfied with anesthesia, not yet ambulating, demonstrated some confusion, answered questions appropriately. Objective - Constitutional Vitals: Vital Signs - 12hr 01/22/17 01/22/17 01/23/17 22:00 23:00 07:00 Temperature 98.5 F 100.8 F H Pulse Rate 82 95 H Respiratory 16 16 20 Rate Respiratory 16 Rate [Left Hip] Blood Pressure 137/71 162/72 O2 Sat by Pulse 100 82 L Oximetry - Labs CBC & Chem 7: 01/23/17 05:14 01/21/17 05:41
[2017-01-23] MEDS: AUGMENTIN 875 MG PO SCH ×2 (09:28→22:00)
[2017-01-23] MEDS: NORVASC PO SCH (09:29)
[2017-01-23] MEDS: HCTZ PO SCH (09:29)
[2017-01-23] MEDS: TENORMIN PO SCH (09:29)
[2017-01-23] MEDS: ZESTRIL PO SCH (09:30)
[2017-01-23] MEDS ORDERED: K-DUR PO ONE (11:00)
--- NOTE | 2017-01-23 14:45 | Progress Note ---
Assessment and Plan Assessment and plan: 76 year old -[place]inese female with past medical history significant for hypertension presented to emergency department complaining of fall down injury yesterday evening while she was trying to fix this shower. She failed on her left side and hit her hip. After that she started to feel pain in the right hip. The pain was sharp 8/10 intensity that worsened with movement. No bleeding or most of consciousness. She presented to the emergency department and x-rays showed she has fracture of the left hip. Dr. Alberto from orthopedics was consulted by ED doctor. * Displaced left femoral neck fracture S/P- left bipolar hemiarthroplasty * Htn * Tobacco abuse * Low grade temp. No evidence of sepsis * left Hip pain * Dyslipidemia * Bronchitis Plan: * supportive care. * Continue on empiric Augmentin * Continue Home Bp Meds * 15 Mins counselling provided on need to quit tobacco use, patient given resources, she verbalized understanding * Mild congestive changes on xray without any infectious process noted. * D/C johnson once ok with Ortho. * Pain control per Ortho * PT/OT pos op. * DVT/GI proph * Plan of care discussed with patient in detail History Interval history: Patient seen and examined, in no acute distress. Cough persist, non productive, s/p left bipolar hemiarthroplasty with no complications noted. No adverse event reported to me Hospitalist Physical - Physical exam Narrative exam: VITAL SIGNS: Reviewed. GENERAL: The patient appeared well nourished and normally developed. Vital signs as documented. HEAD: No signs of head trauma. EYES: Pupils are equal. Extraocular motions intact. EARS: Hearing grossly intact. MOUTH: Oropharynx is normal. NECK: No adenopathy, no JVD. CHEST: Chest with clear breath sounds bilaterally. No wheezes, rales, or rhonchi. CARDIAC: Regular rate and rhythm. S1 and S2, without murmurs, gallops, or rubs. VASCULAR: No Edema. Peripheral pulses normal and equal in all extremities. ABDOMEN: Soft, without detectable tenderness. No sign of distention. No rebound or guarding, and no masses palpated. Bowel Sounds normal. MUSCULOSKELETAL: Left lower extremity tender at the hip, dressing in place. No drainage noted. No cyanosis or clubbing noted. NEUROLOGIC EXAM: Alert and oriented x 3. No focal sensory or strength deficits. Speech normal. Follows commands. PSYCHIATRIC: Mood normal. SKIN: No rash or lesions. - Constitutional Vitals: Temp Pulse Resp BP Pulse Ox 100.8 F H 95 H 20 162/72 97 01/23/17 07:00 01/23/17 07:00 01/23/17 07:00 01/23/17 07:00 01/23/17 14:31 General appearance: Present: no acute distress, cachectic Results - Labs CBC & Chem 7: 01/23/17 05:14 01/21/17 05:41 Labs: Laboratory Last Values WBC 7.7 K/mm3 (4.5-11.0) 01/21/17 05:41 RBC 4.42 M/mm3 (3.65-5.03) 01/21/17 05:41 Hgb 10.4 gm/dl (10.1-14.3) 01/23/17 05:14 Hct 31.5 % (30.3-42.9) 01/23/17 05:14 MCV 82 fl (79-97) 01/21/17 05:41 MCH 28 pg (28-32) 01/21/17 05:41 MCHC 34 % (30-34) 01/21/17 05:41 RDW 15.3 % (13.2-15.2) H 01/21/17 05:41 Plt Count 138 K/mm3 (140-440) L 01/21/17 05:41 Lymph % (Auto) 14.4 % (13.4-35.0) 01/21/17 05:41 [place] % (Auto) 4.1 % (0.0-7.3) 01/21/17 05:41 Eos % (Auto) 2.0 % (0.0-4.3) 01/21/17 05:41 Baso % (Auto) 0.1 % (0.0-1.8) 01/21/17 05:41 Lymph # 1.1 K/mm3 (1.2-5.4) L 01/21/17 05:41 [place] # 0.3 K/mm3 (0.0-0.8) 01/21/17 05:41 Eos # 0.2 K/mm3 (0.0-0.4) 01/21/17 05:41 Baso # 0.0 K/mm3 (0.0-0.1) 01/21/17 05:41 Seg Neutrophils % 79.4 % (40.0-70.0) H 01/21/17 05:41 Seg Neutrophils # 6.1 K/mm3 (1.8-7.7) 01/21/17 05:41 PT 13.5 Sec. (12.2-14.9) 01/20/17 13:05 INR 1.04 (0.87-1.13) 01/20/17 13:05 APTT 31.4 Sec. (24.2-36.6) 01/20/17 13:05 Sodium 138 mmol/L (137-145) 01/21/17 05:41 Potassium 3.5 mmol/L (3.6-5.0) L 01/21/17 05:41 Chloride 96.2 mmol/L (98-107) L 01/21/17 05:41 Carbon Dioxide 27 mmol/L (22-30) 01/21/17 05:41 Anion Gap 18 mmol/L 01/21/17 05:41 BUN 12 mg/dL (7-17) 01/21/17 05:41 Creatinine 0.8 mg/dL (0.7-1.2) 01/21/17 05:41 Estimated GFR > 60 ml/min 01/21/17 05:41 BUN/Creatinine Ratio 15.00 % 01/21/17 05:41 Glucose 104 mg/dL (65-100) H 01/21/17 05:41 Calcium 9.6 mg/dL (8.4-10.2) 01/21/17 05:41 Urine Color Yellow (Yellow) 01/20/17 17:22 Urine Turbidity Clear (Clear) 01/20/17 17:22 Urine pH 7.0 (5.0-7.0) 01/20/17 17:22 Ur Specific [place] 1.010 (1.003-1.030) 01/20/17 17:22 Urine Protein <15 mg/dl mg/dL (Negative) 01/20/17 17:22 Urine Glucose (UA) Neg mg/dL (Negative) 01/20/17 17:22 Urine Ketones Neg mg/dL (Negative) 01/20/17 17:22 Urine Blood Neg (Negative) 01/20/17 17:22 Urine Nitrite Neg (Negative) 01/20/17 17:22 Urine Bilirubin Neg (Negative) 01/20/17 17:22 Urine Urobilinogen < 2.0 mg/dL (<2.0) 01/20/17 17:22 Ur Leukocyte Esterase Sm (Negative) 01/20/17 17:22 Urine WBC (Auto) 3.0 /HPF (0.0-6.0) 01/20/17 17:22 Urine RBC (Auto) 2.0 /HPF (0.0-6.0) 01/20/17 17:22 U Epithel Cells (Auto) 1.0 /HPF (0-13.0) 01/20/17 17:22 Blood Type O POSITIVE 01/20/17 13:58 Antibody Screen TNR 01/20/17 13:58 MATT Antibody Screen Negative 01/20/17 13:58
[2017-01-23] MEDS ORDERED: PROVENTIL IH PRN (15:38)
[2017-01-23] MEDS ORDERED: TYLENOL PO PRN (16:15)
[2017-01-23] MEDS: MORPHINE IV PRN (16:20)
[2017-01-23] MEDS ORDERED: LEVAQUIN 750MG/150ML 750 MG/150 ML BAG IV SCH (17:00)
--- NOTE | 2017-01-23 21:07 | Progress Note ---
Assessment and Plan Displaced left femoral neck fracture Recommendations patient advised to undergo partial hip replacement with bipolar arthroplasty Subjective Date of service: 01/23/17 Principal diagnosis: Displaced femoral fracture Interval history: Somewhat confused otherwise doing well Objective Vital signs: Vital Signs - 12hr 01/23/17 01/23/17 14:31 16:00 Temperature 102.7 F H Pulse Rate 89 Respiratory 18 Rate Blood Pressure 138/64 O2 Sat by Pulse 97 Oximetry Narrative Exam: Left hip postoperative dressings intact and compartments soft - Labs CBC & BMP: 01/23/17 05:14 01/21/17 05:41
[2017-01-23] MEDS: DUONEB *Not for PRN Use IH SCH ×2 (21:34→21:38)
[2017-01-23] MEDS: ZOCOR PO SCH (21:59)
[2017-01-24] MEDS: HEPARIN SUB-Q SCH ×2 (05:57→20:05)
[2017-01-24 06:05] LABS: Hematocrit 28.6 % (30.3-42.9); Hemoglobin 9.5 gm/dl (10.1-14.3); Mean Corpuscular HGB Conc 33 % (30-34); Mean Corpuscular Hemoglobin 28 pg (28-32); Mean Corpuscular Volume 85 fl (79-97); Platelet Count 143 K/mm3 (140-440); Red Blood Count 3.36 M/mm3 (3.65-5.03); Red Cell Distribution Width 14.8 % (13.2-15.2); White Blood Count 10.2 K/mm3 (4.5-11.0)
[2017-01-24 06:18] LABS: Anion Gap 17 mmol/L; BUN/Creatinine Ratio 21.66; Blood Urea Nitrogen 13 mg/dL (7-17); Calcium 9.1 mg/dL (8.4-10.2); Carbon Dioxide 27 mmol/L (22-30); Chloride 103.8 mmol/L (98-107); Glucose 134 mg/dL (65-100); Potassium 4.4 mmol/L (3.6-5.0); Sodium 143 mmol/L (137-145)
[2017-01-24] MEDS: DUONEB *Not for PRN Use IH SCH ×3 (07:41→20:13)
--- NOTE | 2017-01-24 08:36 | XRay Report ---
AP CHEST :01/23/17 CLINICAL: Sepsis. COMPARISON:01/21/17 and 03/16/10 FINDINGS: Normal heart and pulmonary vasculature. Prominent bilateral interstitial opacities are unchanged compared to the last exam. They are greater in the lower lobes. No airspace disease or pleural effusion. Normal heart size. The pulmonary vessels are normal. Aortic tortuosity. The bones and soft tissues are normal. IMPRESSION: No change. Chronic interstitial disease.
--- NOTE | 2017-01-24 09:46 | Discharge Summary ---
Providers - Providers Date of Admission: 01/20/17 18:17 Date of discharge: 01/24/17 Attending physician: RTISTIN JUAREZ MD 01/22/17 18:53 Physical Therapy Evaluation and Treat [CONS] Routine Comment: Reason For Exam: postop evaluation Weight bearing status?: Partial wt bearing Assistive devices?: Yes If so list: Walker Primary care physician: [employer] Hospitalization Reason for admission: hip fracture Condition: Stable Hospital course: 76 year old -[place] female with past medical history significant for hypertension presented to emergency department complaining of fall down injury yesterday evening while she was trying to fix this shower. She failed on her left side and hit her hip. After that she started to feel pain in the right hip. The pain was sharp 8/10 intensity that worsened with movement. No bleeding or most of consciousness. She presented to the emergency department and x-rays showed she has fracture of the left hip. Dr. Alberto from orthopedics was consulted by ED doctor. Patient proceeded to have a left bipolar hemiarthroplasty done without any complications Patient did have an episode of temperature increased to 102.6, this subsequently resolved. Blood cultures were done which were all unremarkable. She did have a repeat low- grade fever and there was concern for aspiration pneumonitis also started on a broader spectrum antibiotic with good improvement. Incentive spirometer was also on a Ybarra catheter was discontinued. PaContinue patient by mouth blood pressure control on discharge. Incentive spirometer recommended. Also patient recommended to follow with acetylene cutter outpatient * Displaced left femoral neck fracture S/P- left bipolar hemiarthroplasty * COPD * Htn * Tobacco abuse * Aspiration pneumonitis * left Hip pain * Dyslipidemia * Bronchitis C Disposition: [id number] [facility] C[facility] Time spent for discharge: 35 MINS Core Measure Documentation - Palliative Care Palliative Care/ Comfort Measures: Not Applicable - Core Measures Any of the following diagnoses?: history only - VTE Discharge Requirements Deep Vein Thrombosis/Pulmonary Embolism Present on Admission: No Exam - Physical Exam Narrative exam: VITAL SIGNS: Reviewed. GENERAL: The patient appeared well nourished and normally developed. Vital signs as documented. HEAD: No signs of head trauma. EYES: Pupils are equal. Extraocular motions intact. EARS: Hearing grossly intact. MOUTH: Oropharynx is normal. NECK: No adenopathy, no JVD. CHEST: Chest with diminished breath sounds bilaterally. No wheezes, rales, or rhonchi. CARDIAC: Regular rate and rhythm. S1 and S2, without murmurs, gallops, or rubs. VASCULAR: No Edema. Peripheral pulses normal and equal in all extremities. ABDOMEN: Soft, without detectable tenderness. No sign of distention. No rebound or guarding, and no masses palpated. Bowel Sounds normal. MUSCULOSKELETAL: Left lower extremity tender at the hip, dressing in place. No drainage noted. No cyanosis or clubbing noted. NEUROLOGIC EXAM: Alert and oriented x 3. No focal sensory or strength deficits. Speech normal. Follows commands. PSYCHIATRIC: Mood normal. SKIN: No rash or lesions. - Constitutional Vitals: Temp Pulse Resp BP Pulse Ox 98.5 F 94 H 20 156/71 100 01/24/17 07:15 01/24/17 07:15 01/24/17 07:15 01/24/17 07:15 01/24/17 08:43 Plan Activity: advance as tolerated, fall precautions Diet: low fat Special Instructions: record daily BP diary, smoking cessation Additional Instructions: follow with pulmonary for copd eval Follow up with: PRIMARY MD ROSY [Primary Care Provider] - 3-5 Days BEATRIZ ALBERTO MD [Staff Physician] - 7 Days CATALINA STALLWORTH MD [Staff Physician] - 7 Days Prescriptions: Apixaban [Eliquis] 2.5 mg PO BID 35 Days Levofloxacin [Levaquin TAB] 750 mg PO DAILY #10 tablet
[2017-01-24] MEDS: LEVAQUIN 750MG/150ML 750 MG/150 ML BAG IV SCH (12:50)
[2017-01-24] MEDS: AUGMENTIN 875 MG PO SCH ×2 (12:53→23:02)
[2017-01-24] MEDS: TENORMIN PO SCH (12:53)
[2017-01-24] MEDS: HCTZ PO SCH (12:53)
[2017-01-24] MEDS: NORVASC PO SCH (12:54)
--- NOTE | 2017-01-24 13:35 | Progress Note ---
Assessment and Plan Assessment and plan: 76 year old -[place] female with past medical history significant for hypertension presented to emergency department complaining of fall down injury yesterday evening while she was trying to fix this shower. She failed on her left side and hit her hip. After that she started to feel pain in the right hip. The pain was sharp 8/10 intensity that worsened with movement. No bleeding or most of consciousness. She presented to the emergency department and x-rays showed she has fracture of the left hip. Dr. Alberto from orthopedics was consulted by ED doctor. Patient did have an episode of temperature increased to 102.6, this subsequently resolved. Blood cultures were done which were all unremarkable. Patient was started on empiric antibiotic coverage acidosis is negative. Continue patient by mouth blood pressure control on discharge. Incentive spirometer recommended. Also patient recommended to follow with manager clinical pharmacy outpatient * Displaced left femoral neck fracture S/P- left bipolar hemiarthroplasty * COPD * Htn * Tobacco abuse * Aspiration pneumonitis * left Hip pain * Dyslipidemia * Bronchitis Plan: * supportive care. * Continue on empiric Augmentin, levaqin * Continue Home Bp Meds * 15 Mins counselling provided on need to quit tobacco use, patient given resources, she verbalized understanding * Mild congestive changes on xray without any infectious process noted. * Pain control per Ortho * PT/OT pos op. * DVT/GI proph * Plan of care discussed with patient in detail History Interval history: Patient seen and examined, in no acute distress. Nonproductive cough improved s /p left bipolar hemiarthroplasty with no complications noted. No adverse event reported to me Hospitalist Physical - Physical exam Narrative exam: VITAL SIGNS: Reviewed. GENERAL: The patient appeared well nourished and normally developed. Vital signs as documented. HEAD: No signs of head trauma. EYES: Pupils are equal. Extraocular motions intact. EARS: Hearing grossly intact. MOUTH: Oropharynx is normal. NECK: No adenopathy, no JVD. CHEST: Chest with diminished breath sounds bilaterally. No wheezes, rales, or rhonchi. CARDIAC: Regular rate and rhythm. S1 and S2, without murmurs, gallops, or rubs. VASCULAR: No Edema. Peripheral pulses normal and equal in all extremities. ABDOMEN: Soft, without detectable tenderness. No sign of distention. No rebound or guarding, and no masses palpated. Bowel Sounds normal. MUSCULOSKELETAL: Left lower extremity tender at the hip, dressing in place. No drainage noted. No cyanosis or clubbing noted. NEUROLOGIC EXAM: Alert and oriented x 3. No focal sensory or strength deficits. Speech normal. Follows commands. PSYCHIATRIC: Mood normal. SKIN: No rash or lesions. - Constitutional Vitals: Temp Pulse Resp BP Pulse Ox 98.5 F 94 H 20 156/71 100 01/24/17 07:15 01/24/17 07:15 01/24/17 07:15 01/24/17 07:15 01/24/17 08:43 General appearance: Present: no acute distress, cachectic Results - Labs CBC & Chem 7: 01/24/17 05:14 01/24/17 05:14 Labs: Laboratory Last Values WBC 10.2 K/mm3 (4.5-11.0) 01/24/17 05:14 RBC 3.36 M/mm3 (3.65-5.03) L 01/24/17 05:14 Hgb 9.5 gm/dl (10.1-14.3) L 01/24/17 05:14 Hct 28.6 % (30.3-42.9) L 01/24/17 05:14 MCV 85 fl (79-97) 01/24/17 05:14 MCH 28 pg (28-32) 01/24/17 05:14 MCHC 33 % (30-34) 01/24/17 05:14 RDW 14.8 % (13.2-15.2) 01/24/17 05:14 Plt Count 143 K/mm3 (140-440) 01/24/17 05:14 Lymph % (Auto) 14.4 % (13.4-35.0) 01/21/17 05:41 [place] % (Auto) 4.1 % (0.0-7.3) 01/21/17 05:41 Eos % (Auto) 2.0 % (0.0-4.3) 01/21/17 05:41 Baso % (Auto) 0.1 % (0.0-1.8) 01/21/17 05:41 Lymph # 1.1 K/mm3 (1.2-5.4) L 01/21/17 05:41 [place] # 0.3 K/mm3 (0.0-0.8) 01/21/17 05:41 Eos # 0.2 K/mm3 (0.0-0.4) 01/21/17 05:41 Baso # 0.0 K/mm3 (0.0-0.1) 01/21/17 05:41 Seg Neutrophils % 79.4 % (40.0-70.0) H 01/21/17 05:41 Seg Neutrophils # 6.1 K/mm3 (1.8-7.7) 01/21/17 05:41 PT 13.5 Sec. (12.2-14.9) 01/20/17 13:05 INR 1.04 (0.87-1.13) 01/20/17 13:05 APTT 31.4 Sec. (24.2-36.6) 01/20/17 13:05 Sodium 143 mmol/L (137-145) 01/24/17 05:14 Potassium 4.4 mmol/L (3.6-5.0) D 01/24/17 05:14 Chloride 103.8 mmol/L (98-107) 01/24/17 05:14 Carbon Dioxide 27 mmol/L (22-30) 01/24/17 05:14 Anion Gap 17 mmol/L 01/24/17 05:14 BUN 13 mg/dL (7-17) 01/24/17 05:14 Creatinine 0.6 mg/dL (0.7-1.2) L 01/24/17 05:14 Estimated GFR > 60 ml/min 01/24/17 05:14 BUN/Creatinine Ratio 21.66 % 01/24/17 05:14 Glucose 134 mg/dL (65-100) H 01/24/17 05:14 Lactic Acid 1.00 mmol/L (0.7-2.0) 01/23/17 16:51 Calcium 9.1 mg/dL (8.4-10.2) 01/24/17 05:14 Urine Color Yellow (Yellow) 01/20/17 17:22 Urine Turbidity Clear (Clear) 01/20/17 17:22 Urine pH 7.0 (5.0-7.0) 01/20/17 17:22 Ur Specific [place] 1.010 (1.003-1.030) 01/20/17 17:22 Urine Protein <15 mg/dl mg/dL (Negative) 01/20/17 17:22 Urine Glucose (UA) Neg mg/dL (Negative) 01/20/17 17:22 Urine Ketones Neg mg/dL (Negative) 01/20/17 17:22 Urine Blood Neg (Negative) 01/20/17 17:22 Urine Nitrite Neg (Negative) 01/20/17 17:22 Urine Bilirubin Neg (Negative) 01/20/17 17:22 Urine Urobilinogen < 2.0 mg/dL (<2.0) 01/20/17 17:22 Ur Leukocyte Esterase Sm (Negative) 01/20/17 17:22 Urine WBC (Auto) 3.0 /HPF (0.0-6.0) 01/20/17 17:22 Urine RBC (Auto) 2.0 /HPF (0.0-6.0) 01/20/17 17:22 U Epithel Cells (Auto) 1.0 /HPF (0-13.0) 01/20/17 17:22 Blood Type O POSITIVE 01/20/17 13:58 Antibody Screen TNR 01/20/17 13:58 MATT Antibody Screen Negative 01/20/17 13:58 - Imaging and Cardiology Chest x-ray: image reviewed (Chronic interstitial changes)
[2017-01-24] MEDS: ZOCOR PO SCH (23:02)
[2017-01-25] MEDS: HEPARIN SUB-Q SCH ×3 (04:11→16:00)
[2017-01-25] MEDS: NACL 0.9% 1000 ML 1,000 ML IV SCH (06:51)
[2017-01-25] MEDS: DUONEB *Not for PRN Use IH SCH ×2 (09:22→14:36)
[2017-01-25] MEDS: AUGMENTIN 875 MG PO SCH (10:14)
[2017-01-25] MEDS: TENORMIN PO SCH (10:15)
[2017-01-25] MEDS: LEVAQUIN 750MG/150ML 750 MG/150 ML BAG IV SCH (10:15)
[2017-01-25] MEDS: NORVASC PO SCH (10:16)
[2017-01-25] MEDS: HCTZ PO SCH (10:17)
[2017-01-25] MEDS: ZESTRIL PO SCH (10:18)
[2017-01-25 15:33] VITALS: BP 149/70
--- NOTE | 2017-01-25 15:53 | Progress Note ---
Assessment and Plan Assessment and plan: 76 year old -Finnish female with past medical history significant for hypertension presented to emergency department complaining of fall down injury yesterday evening while she was trying to fix this shower. She failed on her left side and hit her hip. After that she started to feel pain in the right hip. The pain was sharp 8/10 intensity that worsened with movement. No bleeding or most of consciousness. She presented to the emergency department and x-rays showed she has fracture of the left hip. Dr. Alberto from orthopedics was consulted by ED doctor. Patient did have an episode of temperature increased to 102.6, this subsequently resolved. Blood cultures were done which were all unremarkable. Patient was started on empiric antibiotic coverage acidosis is negative. Continue patient by mouth blood pressure control on discharge. Incentive spirometer recommended. Also patient recommended to follow with bark grinder outpatient * Displaced left femoral neck fracture S/P- left bipolar hemiarthroplasty * COPD * Htn * Tobacco abuse * Aspiration pneumonitis * left Hip pain * Dyslipidemia * Bronchitis Plan: * supportive care. * Continue on empiric ABX * Cultures with no growth * Continue Home Bp Meds * 15 Mins counselling provided on need to quit tobacco use, patient given resources, she verbalized understanding * Mild congestive changes on xray * Pain control per Ortho * PT/OT pos op. * DVT/GI proph * Plan of care discussed with patient in detail * Pending placement * D/C johnson- discussed with nursing staff History Interval history: Patient seen and examined, in no acute distress. Still with non productive cough improved s/p left bipolar hemiarthroplasty with no complications noted. No adverse event reported to me Hospitalist Physical - Physical exam Narrative exam: VITAL SIGNS: Reviewed. GENERAL: The patient appeared well nourished and normally developed. Vital signs as documented. HEAD: No signs of head trauma. EYES: Pupils are equal. Extraocular motions intact. EARS: Hearing grossly intact. MOUTH: Oropharynx is normal. NECK: No adenopathy, no JVD. CHEST: Chest with diminished breath sounds bilaterally. No wheezes, rales, or rhonchi. CARDIAC: Regular rate and rhythm. S1 and S2, without murmurs, gallops, or rubs. VASCULAR: No Edema. Peripheral pulses normal and equal in all extremities. ABDOMEN: Soft, without detectable tenderness. No sign of distention. No rebound or guarding, and no masses palpated. Bowel Sounds normal. MUSCULOSKELETAL: Left lower extremity tender at the hip, dressing in place. No drainage noted. No cyanosis or clubbing noted. NEUROLOGIC EXAM: Alert and oriented x 3. No focal sensory or strength deficits. Speech normal. Follows commands. PSYCHIATRIC: Mood normal. SKIN: No rash or lesions. - Constitutional Vitals: Temp Pulse Resp BP Pulse Ox 99.3 F 88 18 149/70 99 01/25/17 15:31 01/25/17 15:31 01/25/17 15:31 01/25/17 15:31 01/25/17 15:31 General appearance: Present: no acute distress, cachectic Results - Labs CBC & Chem 7: 01/24/17 05:14 01/24/17 05:14 Labs: Laboratory Last Values WBC 10.2 K/mm3 (4.5-11.0) 01/24/17 05:14 RBC 3.36 M/mm3 (3.65-5.03) L 01/24/17 05:14 Hgb 9.5 gm/dl (10.1-14.3) L 01/24/17 05:14 Hct 28.6 % (30.3-42.9) L 01/24/17 05:14 MCV 85 fl (79-97) 01/24/17 05:14 MCH 28 pg (28-32) 01/24/17 05:14 MCHC 33 % (30-34) 01/24/17 05:14 RDW 14.8 % (13.2-15.2) 01/24/17 05:14 Plt Count 143 K/mm3 (140-440) 01/24/17 05:14 Lymph % (Auto) 14.4 % (13.4-35.0) 01/21/17 05:41 [place] % (Auto) 4.1 % (0.0-7.3) 01/21/17 05:41 Eos % (Auto) 2.0 % (0.0-4.3) 01/21/17 05:41 Baso % (Auto) 0.1 % (0.0-1.8) 01/21/17 05:41 Lymph # 1.1 K/mm3 (1.2-5.4) L 01/21/17 05:41 [place] # 0.3 K/mm3 (0.0-0.8) 01/21/17 05:41 Eos # 0.2 K/mm3 (0.0-0.4) 01/21/17 05:41 Baso # 0.0 K/mm3 (0.0-0.1) 01/21/17 05:41 Seg Neutrophils % 79.4 % (40.0-70.0) H 01/21/17 05:41 Seg Neutrophils # 6.1 K/mm3 (1.8-7.7) 01/21/17 05:41 PT 13.5 Sec. (12.2-14.9) 01/20/17 13:05 INR 1.04 (0.87-1.13) 01/20/17 13:05 APTT 31.4 Sec. (24.2-36.6) 01/20/17 13:05 Sodium 143 mmol/L (137-145) 01/24/17 05:14 Potassium 4.4 mmol/L (3.6-5.0) D 01/24/17 05:14 Chloride 103.8 mmol/L (98-107) 01/24/17 05:14 Carbon Dioxide 27 mmol/L (22-30) 01/24/17 05:14 Anion Gap 17 mmol/L 01/24/17 05:14 BUN 13 mg/dL (7-17) 01/24/17 05:14 Creatinine 0.6 mg/dL (0.7-1.2) L 01/24/17 05:14 Estimated GFR > 60 ml/min 01/24/17 05:14 BUN/Creatinine Ratio 21.66 % 01/24/17 05:14 Glucose 134 mg/dL (65-100) H 01/24/17 05:14 Lactic Acid 1.00 mmol/L (0.7-2.0) 01/23/17 16:51 Calcium 9.1 mg/dL (8.4-10.2) 01/24/17 05:14 Urine Color Yellow (Yellow) 01/20/17 17:22 Urine Turbidity Clear (Clear) 01/20/17 17:22 Urine pH 7.0 (5.0-7.0) 01/20/17 17:22 Ur Specific [place] 1.010 (1.003-1.030) 01/20/17 17:22 Urine Protein <15 mg/dl mg/dL (Negative) 01/20/17 17:22 Urine Glucose (UA) Neg mg/dL (Negative) 01/20/17 17:22 Urine Ketones Neg mg/dL (Negative) 01/20/17 17:22 Urine Blood Neg (Negative) 01/20/17 17:22 Urine Nitrite Neg (Negative) 01/20/17 17:22 Urine Bilirubin Neg (Negative) 01/20/17 17:22 Urine Urobilinogen < 2.0 mg/dL (<2.0) 01/20/17 17:22 Ur Leukocyte Esterase Sm (Negative) 01/20/17 17:22 Urine WBC (Auto) 3.0 /HPF (0.0-6.0) 01/20/17 17:22 Urine RBC (Auto) 2.0 /HPF (0.0-6.0) 01/20/17 17:22 U Epithel Cells (Auto) 1.0 /HPF (0-13.0) 01/20/17 17:22 Blood Type O POSITIVE 01/20/17 13:58 Antibody Screen TNR 01/20/17 13:58 MATT Antibody Screen Negative 01/20/17 13:58
[2017-01-26] MEDS ORDERED: LEVAQUIN PO SCH (10:00)
== END 2017-01-25 17:15 | DRG 469 ==
LOC: ED 11:37 → 3A 18:17
PROVIDERS: ADMIT Internal Medicine; ATTEND Internal Medicine
PROC: 0SRS01Z Replacement of Left Hip Joint, Femoral Surface with Metal Synthetic Substitute, Open Approach (ICD-10-PCS; principal; 2017-01-22)
DX: S72.002A Fracture of unspecified part of neck of left femur, initial encounter for closed fracture (principal); J69.0 Pneumonitis due to inhalation of food and vomit; R29.6 Repeated falls; I10 Essential (primary) hypertension; J40 Bronchitis, not specified as acute or chronic; E78.5 Hyperlipidemia, unspecified; J44.9 Chronic obstructive pulmonary disease, unspecified; M19.90 Unspecified osteoarthritis, unspecified site; F17.210 Nicotine dependence, cigarettes, uncomplicated; W18.39XA Other fall on same level, initial encounter; Y93.89 Activity, other specified; Y92.89 Other specified places as the place of occurrence of the external cause; Z88.2 Allergy status to sulfonamides; Z98.891 History of uterine scar from previous surgery; Y99.8 Other external cause status
CPT/HCPCS: 36415; 71010; 80048; 81001; 82140; 85014; 85018; 85025; 85027; 85610; 85730; 86850; 86900; 86901; 87040; 93005; 93010; 94640; 94760; C1776; G8978-GP; G8979-GP; J0690; J1030; J1170; J1644; J1885; J1956; J2250; J2270; J2405; J2704; J7030

== ENCOUNTER 2017-02-06 09:26 | Inpatient (IN) | payer MEDICARE ==
[2017-02-06] MEDS ORDERED: NACL 0.9% 500 ML 500 ML IV ONE ×3 (09:54→19:13)
[2017-02-06] MEDS ORDERED: D50W (25GM) Syringe IV ONE ×4 (10:00→14:06)
[2017-02-06] MEDS ORDERED: NACL 0.9% 1000 ML 1,000 ML ONE ×2 (10:40→22:03)
[2017-02-06] MEDS ORDERED: NACL 0.9% 1000 ML 1,000 ML IV ONE ×3 (10:44→22:13)
[2017-02-06 10:45] LABS: Hematocrit 28.1 % (30.3-42.9); Hemoglobin 9.1 gm/dl (10.1-14.3); Mean Corpuscular HGB Conc 32 % (30-34); Mean Corpuscular Hemoglobin 27 pg (28-32); Mean Corpuscular Volume 84 fl (79-97); Platelet Count 325 K/mm3 (140-440); Red Blood Count 3.34 M/mm3 (3.65-5.03)
[2017-02-06 10:54] LABS: INR 2.57 (0.87-1.13)
[2017-02-06 10:57] LABS: ISTAT Base Excess -7; ISTAT DEVICE 0; ISTAT HCO3 17.7; ISTAT PCO2 27.1 (35-45); ISTAT PH 7.423 (7.35-7.45); ISTAT PO2 81 (80-105); ISTAT SO2 96; ISTAT TCO2 19
[2017-02-06 11:00] LABS: White Blood Count 33.2 K/mm3 (4.5-11.0)
[2017-02-06 11:04] LABS: Albumin 2.3 g/dL (3.9-5); Albumin/Globulin Ratio 0.7 %; BUN/Creatinine Ratio 25.12; Bilirubin,Total 0.4 mg/dL (0.1-1.2); Calcium 8.2 mg/dL (8.4-10.2); Chloride 113.5 mmol/L (98-107); Potassium 3.9 mmol/L (3.6-5.0); Total Protein 5.5 g/dL (6.3-8.2)
[2017-02-06] MEDS ORDERED: ROCEPHIN/NS 1 GM/50 ML 1 GM/50 ML BAG IV ONE (11:04)
--- NOTE | 2017-02-06 11:05 | XRay Report ---
PORTABLE CHEST INDICATION: Possible sepsis, hypotension. COMPARISON: 01/23/2017 FINDINGS: Portable, frontal chest radiograph demonstrates poorer inspiration with mild bibasilar crowding/atelectasis, left more than right. No pleural effusions or CHF. Stable cardiomediastinal silhouette, aortic knob calcifications, demineralized bones. EKG leads. Mild gaseous gastric distention. CONCLUSION: Limited inspiration with mild bibasilar atelectasis without significant acute chest process, as described. Please correlate. Thank you for the opportunity to participate in this patient's care.
--- NOTE | 2017-02-06 11:12 | Emergency Department Report ---
ED General Adult HPI - General Chief complaint: Altered Mental Status Stated complaint: AMS Time Seen by Provider: 02/06/17 10:28 Source: EMS (ems notes not available at time of chart dictation), RN notes reviewed, old records reviewed Mode of arrival: Stretcher Limitations: Altered Mental Status - History of Present Illness Initial comments: This is a 76-year-old female. She is previously unknown to me. Patient recently admitted to this hospital for left-sided hip fracture. Past medical history includes hypertension, status post open reduction/internal fixation of left sided hip fracture. Patient was discharged on systemic anticoagulation from this hospital. She is sent to the ER from her prison for "patient not acting like herself." Patient was also found to be hypotensive. The patient is altered, and is unable to provide further history. She does follow some commands. Primary care doctor is Dr. Jatinder Abbasi, Dr. Emiliano Ferris. Upon arrival to the ER, patient found to be hypotensive with a blood pressure in the 80s, and hypoglycemic with a fingerstick at 47. -: unknown Consistency: constant Improves with: none Worsens with: none Associated Symptoms: confusion - Related Data Home Medications Medication Instructions Recorded Confirmed Last Taken Atenolol [Tenormin] 100 mg PO DAILY 01/20/17 02/06/17 01/19/17 Hydrochlorothiazide [HCTZ] 25 mg PO QDAY 01/20/17 02/06/17 01/19/17 Lisinopril [Zestril TAB] 40 mg PO QDAY 01/20/17 02/06/17 01/19/17 Simvastatin [Zocor TAB] 10 mg PO QHS 01/20/17 02/06/17 01/19/17 amLODIPine [Norvasc] 5 mg PO DAILY 01/20/17 02/06/17 01/19/17 Previous Rx's Medication Instructions Recorded Last Taken Type Apixaban [Eliquis] 2.5 mg PO BID 35 Days 01/24/17 Unknown Rx Levofloxacin [Levaquin TAB] 750 mg PO DAILY #10 tablet 01/25/17 Unknown Rx Allergies Allergy/AdvReac Type Severity Reaction Status Date / Time Sulfa (Sulfonamide Allergy Mild Itching Verified 01/20/17 21:31 Antibiotics) ED Review of Systems ROS: Stated complaint: AMS Other details as noted in HPI Comment: Unobtainable due to pts medical conditions ED Past Medical Hx - Past Medical History Previous Medical History?: Yes Hx Hypertension: Yes Hx Arthritis: Yes (knees) Hx HIV: No Additional medical history: high cholesterol - Surgical History Past Surgical History?: Yes Additional Surgical History: 3 c sections; left hip - Social History Smoking Status: Unknown if ever smoked Substance Use Type: None - Medications Home Medications: Home Medications Medication Instructions Recorded Confirmed Last Taken Type Atenolol [Tenormin] 100 mg PO DAILY 01/20/17 02/06/17 01/19/17 History Hydrochlorothiazide [HCTZ] 25 mg PO QDAY 01/20/17 02/06/17 01/19/17 History Lisinopril [Zestril TAB] 40 mg PO QDAY 01/20/17 02/06/17 01/19/17 History Simvastatin [Zocor TAB] 10 mg PO QHS 01/20/17 02/06/17 01/19/17 History amLODIPine [Norvasc] 5 mg PO DAILY 01/20/17 02/06/17 01/19/17 History Apixaban [Eliquis] 2.5 mg PO BID 35 Days 01/24/17 02/06/17 Unknown Rx Levofloxacin [Levaquin TAB] 750 mg PO DAILY #10 tablet 01/25/17 02/06/17 Unknown Rx ED Physical Exam - General Limitations: Altered Mental Status, Physical Limitation General appearance: in no apparent distress, lethargic - Head Head exam: Present: atraumatic, normocephalic - Eye Eye exam: Present: normal appearance, EOMI - ENT ENT exam: Present: mucous membranes dry - Neck Neck exam: Present: normal inspection, full ROM. Absent: tenderness, meningismus - Respiratory Respiratory exam: Present: respiratory distress, other (patient has quiet tachypnea). Absent: wheezes, rales, rhonchi, stridor, decreased breath sounds - Cardiovascular Cardiovascular Exam: Present: normal rhythm, tachycardia, normal heart sounds. Absent: systolic murmur, diastolic murmur, rubs, gallop - GI/Abdominal GI/Abdominal exam: Present: soft, normal bowel sounds. Absent: distended, tenderness, guarding, rebound, rigid, pulsatile mass - Rectal Rectal exam: Present: normal inspection (patient has stage II sacral breakdown. There is no redness, pus or streaking) - Extremities Exam Extremities exam: Present: normal inspection, full ROM, normal capillary refill. Absent: tenderness, pedal edema, joint swelling, calf tenderness - Back Exam Back exam: Present: normal inspection, full ROM, other ([place] noted to the left hip arthroplasty. There is no redness, pus or streaking. The compartments are soft. There is no palpable cord.). Absent: tenderness, CVA tenderness (R), CVA tenderness (L), muscle spasm, paraspinal tenderness, vertebral tenderness - Neurological Exam Neurological exam: Present: altered, other (the patient moves 4 extremities spontaneously and to command.) - Psychiatric Psychiatric exam: Present: other (altered mental status) - Skin Skin exam: Present: warm, dry, intact, normal color. Absent: rash ED Course Vital Signs 02/06/17 02/06/17 02/06/17 09:27 09:30 09:45 Temperature 97.5 F L Pulse Rate 110 H 109 H 108 H Respiratory 38 H 43 H 53 H Rate Blood Pressure 86/51 86/51 81/40 O2 Sat by Pulse 100 100 55 L Oximetry 02/06/17 02/06/17 02/06/17 10:00 10:16 10:30 Temperature Pulse Rate 102 H 91 H 95 H Respiratory 50 H 43 H 45 H Rate Blood Pressure 81/40 81/52 81/52 O2 Sat by Pulse 71 L 51 L Oximetry 02/06/17 02/06/17 02/06/17 10:46 11:00 11:16 Temperature Pulse Rate 93 H 98 H 90 Respiratory 41 H 13 41 H Rate Blood Pressure 102/52 100/52 121/55 O2 Sat by Pulse Oximetry 02/06/17 02/06/17 02/06/17 11:30 11:45 12:00 Temperature Pulse Rate 89 92 H 94 H Respiratory 35 H 37 H 39 H Rate Blood Pressure 116/52 110/59 110/59 O2 Sat by Pulse Oximetry 02/06/17 02/06/17 02/06/17 12:15 12:30 12:45 Temperature Pulse Rate 94 H 98 H 94 H Respiratory 36 H 37 H 38 H Rate Blood Pressure 89/50 89/43 111/62 O2 Sat by Pulse Oximetry - Reevaluation(s) Reevaluation #1: 02/06/17 11:18 differential diagnosis: Pneumonia, urinary tract infection, dehydration, intracranial hemorrhage Assessment and plan: 76-year-old female with altered mental status hypotension, hypoglycemia. Patient meets criteria for systemic inflammatory response syndrome, through hypotension, cytosis, and elevated lactic acid level at 5.5. Laboratory studies demonstrated acute renal insufficiency with hypernatremia. Patient is obviously find depleted. She is ordered for 2 L of normal saline wide open, 2 A of D50, and she will be started on D5. Patient will be treated empirically for sepsis with ceftriaxone. I doubt a pulmonary embolus as she is on systemic anticoagulation and her INR is therapeutic. Her tachypnea is most likely secondary to her acidosis from her renal insufficiency and dehydration. Urinalysis is pending at this time. We will discuss with nephrology. The Hospital physician has been paged to arrange admission. Reevaluation #2: 02/06/17 11:29 case is presented to the hospital physician, Dr. Loo, and he accepts the patient to his service. Reevaluation #3: 02/06/17 11:35 Case is discussed with nephrology nurse practitioner, Nery, and her group will follow as a consult. Uremic encephalopathy may also be a component to the patient's altered mental status. Blood pressure now in the 120s, repeat Accu- Chek is pending. Reevaluation #4: 02/06/17 12:37 blood pressure in the 70s. Additional liter of IV fluid ordered. Reevaluation #5: 02/06/17 15:23 Blood pressure remains improved. Patient is ordered for when necessary D50. Repeat Accu-Chek is pending. - EJ/Peripheral Line Neck R Time Out Performed: Yes Indications: nurses unable to establis Skin Cleansed in Sterile Fashion: Yes Size: 18 Dressing Placed: Tegaderm Patient Tolerated Procedure: well ED Medical Decision Making - Lab Data Result diagrams: 02/06/17 10:07 02/06/17 10:07 Vital Signs 02/06/17 09:27 Temperature 97.5 F L Pulse Rate 110 H Respiratory 38 H Rate Blood Pressure 86/51 O2 Sat by Pulse 100 Oximetry Lab Results 02/06/17 02/06/17 02/06/17 Range/Units 09:57 10:07 10:07 WBC 33.2 H (4.5-11.0) K/mm3 RBC 3.34 L (3.65-5.03) M/mm3 Hgb 9.1 L (10.1-14.3) gm/dl Hct 28.1 L (30.3-42.9) % MCV 84 (79-97) fl MCH 27 L (28-32) pg MCHC 32 (30-34) % RDW 16.0 H (13.2-15.2) % Plt Count 325 (140-440) K/mm3 Seg Neutrophils % Indoor Landscaper/Gardener PT 27.7 H (12.2-14.9) Sec. INR 2.57 H (0.87-1.13) POC ABG pH (7.35-7.45) POC ABG pCO2 (35-45) POC ABG pO2 (80-105) POC ABG HCO3 POC ABG Total CO2 POC ABG O2 Sat POC ABG Base Excess VBG pH (7.320-7.420) FiO2 % Sodium (137-145) mmol/L Potassium (3.6-5.0) mmol/L Chloride (98-107) mmol/L Carbon Dioxide (22-30) mmol/L Anion Gap mmol/L BUN (7-17) mg/dL Creatinine (0.7-1.2) mg/dL Estimated GFR ml/min BUN/Creatinine Ratio % Glucose (65-100) mg/dL POC Glucose 47 L (70-105) Lactic Acid (0.7-2.0) mmol/L Calcium (8.4-10.2) mg/dL Total Bilirubin (0.1-1.2) mg/dL AST (5-40) units/L ALT (7-56) units/L Alkaline Phosphatase (35-129) units/L Total Protein (6.3-8.2) g/dL Albumin (3.9-5) g/dL Albumin/Globulin Ratio % 02/06/17 02/06/17 02/06/17 Range/Units 10:07 10:07 10:07 WBC (4.5-11.0) K/mm3 RBC (3.65-5.03) M/mm3 Hgb (10.1-14.3) gm/dl Hct (30.3-42.9) % MCV (79-97) fl MCH (28-32) pg MCHC (30-34) % RDW (13.2-15.2) % Plt Count (140-440) K/mm3 Seg Neutrophils % PT (12.2-14.9) Sec. INR (0.87-1.13) POC ABG pH (7.35-7.45) POC ABG pCO2 (35-45) POC ABG pO2 (80-105) POC ABG HCO3 POC ABG Total CO2 POC ABG O2 Sat POC ABG Base Excess VBG pH 7.281 L (7.320-7.420) FiO2 % Sodium 153 H (137-145) mmol/L Potassium 3.9 (3.6-5.0) mmol/L Chloride 113.5 H (98-107) mmol/L Carbon Dioxide 16 L (22-30) mmol/L Anion Gap 27 mmol/L BUN 103 H (7-17) mg/dL Creatinine 4.1 H (0.7-1.2) mg/dL Estimated GFR 13 ml/min BUN/Creatinine Ratio 25.12 % Glucose 340 H (65-100) mg/dL POC Glucose (70-105) Lactic Acid 5.50 H* (0.7-2.0) mmol/L Calcium 8.2 L (8.4-10.2) mg/dL Total Bilirubin 0.40 (0.1-1.2) mg/dL AST 102 H (5-40) units/L ALT 32 (7-56) units/L Alkaline Phosphatase 58 (35-129) units/L Total Protein 5.5 L (6.3-8.2) g/dL Albumin 2.3 L (3.9-5) g/dL Albumin/Globulin Ratio 0.7 % 02/06/17 02/06/17 Range/Units 10:50 11:16 WBC (4.5-11.0) K/mm3 RBC (3.65-5.03) M/mm3 Hgb (10.1-14.3) gm/dl Hct (30.3-42.9) % MCV (79-97) fl MCH (28-32) pg MCHC (30-34) % RDW (13.2-15.2) % Plt Count (140-440) K/mm3 Seg Neutrophils % PT (12.2-14.9) Sec. INR (0.87-1.13) POC ABG pH 7.423 (7.35-7.45) POC ABG pCO2 27.1 L (35-45) POC ABG pO2 81 (80-105) POC ABG HCO3 17.7 POC ABG Total CO2 19 POC ABG O2 Sat 96 POC ABG Base Excess -7 VBG pH (7.320-7.420) FiO2 21 % Sodium (137-145) mmol/L Potassium (3.6-5.0) mmol/L Chloride (98-107) mmol/L Carbon Dioxide (22-30) mmol/L Anion Gap mmol/L BUN (7-17) mg/dL Creatinine (0.7-1.2) mg/dL Estimated GFR ml/min BUN/Creatinine Ratio % Glucose (65-100) mg/dL POC Glucose 59 L (70-105) Lactic Acid (0.7-2.0) mmol/L Calcium (8.4-10.2) mg/dL Total Bilirubin (0.1-1.2) mg/dL AST (5-40) units/L ALT (7-56) units/L Alkaline Phosphatase (35-129) units/L Total Protein (6.3-8.2) g/dL Albumin (3.9-5) g/dL Albumin/Globulin Ratio % - EKG Data -: EKG Interpreted by Me - EKG Data 02/06/17 11:22 Normal sinus, 95 bpm, motion artifact, not morphologically consistent with STEMI. Limited by motion artifact. Patient does not endorse chest pain. - Radiology Data Radiology results: image reviewed interpreted by me: elevated left hemidiaphragm non specific interstitial pattern no pneumonia Critical care attestation.: If time is entered above; I have spent that time in minutes in the direct care of this critically ill patient, excluding procedure time. ED Disposition Clinical Impression: SIRS (systemic inflammatory response syndrome), ARF (acute renal failure) Disposition: OP ADMIT IP TO THIS HOSP Is pt being admited?: Yes Condition: Fair
[2017-02-06 11:38] LABS: Magnesium 2.7 mg/dL (1.7-2.3)
[2017-02-06 11:45] LABS: Basophils % (Manual) 0 % (0.0-1.8); Blastocytes % (Manual) 0 %; Diff Status Complete; Eosinophils % (Manual) 0 % (0.0-4.3); RBC Morphology Normal
[2017-02-06 11:51] LABS: Bacteria,Urine 1+ /HPF (Negative); Bilirubin,Urine NEG (Negative); Blood,Urine MOD (Negative); Ketones,Urine NEG (Negative); Leukocyte Esterase,Urine NEG (Negative); Nitrite,Urine NEG (Negative); Protein,Urine <15 mg/dL mg/dL (Negative); RBC,Urine < 1.0 /HPF (0.0-6.0); Urobilinogen,Urine < 2.0 mg/dL (<2.0)
[2017-02-06] MEDS ORDERED: D10W 1,000 ML IV SCH ×2 (12:00→18:00)
--- NOTE | 2017-02-06 12:15 | Admit Criteria Form ---
Admission Criteria Documentation: GENERAL ADMISSION CRITERIA (Place 'X' for any and all applicable criteria): Admission is indicated for ANY ONE of the following: [X ]I. Hemodynamic instability as indicated by ANY ONE of the following(1)(2 )(3)(4)(5): [ ]a) Vital sign abnormality not readily corrected by appropriate treatment within 12 to 24 hours indicated by ANY ONE of the following: [ ]i) Hypotension [ ]ii) Symptomatic Tachycardia unresponsive to treatment (eg , analgesia, fluids, sedation as indicated) [ ]iii) Orthostatic vital sign changes unresponsive to treatment (eg, fluids) [X ]b) Vital sign abnormality that is severe indicated by ANY ONE of the following: [X ]i) Inadequate perfusion indicated by ANY ONE of the following: [X ]1) Lactic acidosis (greater than 2 mmol/L) [ ]2) New abnormal capillary refill (greater than 3 seconds) [ ]3) Other metabolic acidosis (arterial pH less than 7.35) not otherwise explained [ ]4) Reduced urine output [ ]5) Altered mental status [ ]6) Myocardial Ischemia [ ]v) Mean arterial pressure[A] less than 60 mm Hg [ ]vi) Mean arterial pressure[A] less than 70 mm Hg after 30 minutes of appropriate treatment (eg, fluid resuscitation) [ ]vii) IV inotropic or vasopressor medication required to maintain adequate blood pressure or perfusion [ ]viii) Sustained heart rate greater than 120 beats per minute in adult or child 6 years or older[B]] [ ]II. Hypertension requiring inpatient treatment as indicated by ANY ONE of the following(6)(7)(8): [ ]a) SBP greater than 220 mm Hg or DBP greater than 120 mm Hg despite treatment [ ]b) SBP greater than 140 mm Hg or DBP greater than 100 mm Hg with evidence of acute end organ damage as indicated by ANY ONE of the following: [ ]i) Encephalopathy [ ]ii) Acute renal failure as indicated by new onset of ANY ONE of the following(9)(10)(11)(12)(13): [ ]1) A 3-fold rise in serum creatinine from baseline [ ]2) Serum creatinine greater than 4 mg/dL ( 354 micromoles/L) with acute rise greater than 0.5 mg/dL (44.2 micromoles/L) [ ]3) Reduction of more than 75% in estimated glomerular filtration rate from baseline [ ]4) Estimated glomerular filtration rate less than 35 mL/min/1.73m2 (0.59 mL/sec/1.73m2) in child up to 18 years of age [ ]5) Cessation of urine output indicated by ALL of the following: [ ]A. Adequate volume status [ ]B. Inadequate urine output as indicated by ANY ONE of the following: [ ]a. Urine output less than 0.3 mL/kg/hr for 24 hours [ ]b. Anuria (urine output less than 0.1 mL/kg/hr) for 12 hours [ ]iii) Aortic dissection [ ]iv) Myocardial ischemia [ ]v) Left ventricular heart failure [ ]vi) Retinal hemorrhage [ ]vii) Other significant finding [ ]c) Hypertension in child requiring inpatient treatment as indicated by ALL of the following(14)(15)(16): [ ]i) Outpatient treatment not effective, not available, or not appropriate [ ]ii) SBP or DBP greater than 95th percentile for age [ ]iii) Evidence of acute end organ damage as indicated by ANY ONE of the following: [ ]1) Altered mental status [ ]2) Acute renal failure as indicated by new onset of ANY ONE of the following(9)(10)(11)(12)(13): [ ]A. A 3-fold rise in serum creatinine from baseline [ ]B. Serum creatinine greater than 4 mg/dL (354 micromoles/L) with acute rise greater than 0.5 mg/dL (44.2 micromoles/L) [ ]C. Reduction of more than 75% in estimated glomerular filtration rate from baseline [ ]D. Estimated glomerular filtration rate less than 35 mL/min/1.73m2 (0.59 mL/sec/1.73m2)in child up to 18 years of age [ ]E. Cessation of urine output indicated by ALL of the following: [ ]a. Adequate volume status [ ]b. Inadequate urine output as indicated by ANY ONE of the following: [ ]1) Urine output less than 0.3 mL/kg/hr for 24 hours [ ]2) Anuria (urine output less than 0.1 mL/kg/hr) for 12 hours [ ]3) Severe headache [ ]4) Visual disturbance [ ]5) Retinal hemorrhage [ ]6) Other significant finding [ ]III. Acute cardiac or peripheral ischemia as indicated by ANY ONE of the following: [ ]a) Acute coronary syndrome(17)(18) [ ]b) Acute peripheral ischemia (eg, pulseless, cool, mottled, or cyanotic extremity)(19) [ ]IV. Cardiac arrhythmias or findings of immediate concern indicated by ANY ONE of the following(20)(21): [ ]a) Heart rhythms that are inherently dangerous or unstable indicated by ANY ONE of the following(22)(23)(24): [ ]i) Resuscitated ventricular fibrillation or cardiac arrest [ ]ii) Ventricular escape rhythm [ ]iii) Sustained ventricular tachycardia (30 seconds or more of ventricular rhythm at greater than 100 beats per minute) [ ]iv) Nonsustained ventricular tachycardia and ANY ONE of the following: [ ]1) Suspected cardiac ischemia as cause or consequence of ventricular tachycardia [ ]2) In setting of acute myocarditis [ ]b) Unstable cardiac conduction defects indicated by ANY ONE of the following(24)(25)(26): [ ]i) Type II second-degree atrioventricular block [ ]ii) Third-degree atrioventricular block [ ]iii) New-onset left bundle branch block with suspected myocardial ischemia [ ]c) Any heart rhythm and ANY ONE of the following(22)(23)(27)(28)( 29): [ ] i) Continuous long-term ECG monitoring needed (eg, initiation of drug requiring monitoring for more than 24 hours) [ ] ii) Patient has automatic implanted cardioverter defibrillator that is repeatedly firing, malfunctioning, or in need of immediate adjustment of settings beyond the scope of ambulatory or observation care. [ ]d) Heart rhythms of concern due to ANY ONE of the following: [ ]i) Hypotension [ ]ii) Respiratory distress [ ]iii) Association with other significant symptoms (eg, bradycardia with syncope or ongoing dizziness, supraventricular tachycardia with chest pain) (27)(28) (30) [ ] V. Severe heart failure as indicated by ANY ONE of the following ( 31)(32): [ ]a) Respiratory distress [ ]b) Hypotension [ ]c) Anasarca (refractory to outpatient therapy) [ ]d) Cardiac arrhythmias of immediate concern [ ]e) Myocardial ischemia [ ]. Respiratory abnormalities, including ANY ONE of the following(33)(34) (35)(36): [ ]a) Respiratory rate greater than 30 breaths per minute unresponsive to treatment [A] [ ]b) New saturation of arterial oxygen less than 90% [ ]c) New partial pressure of carbon dioxide greater than 44 mm Hg ( 5.9 kPa) [ ]d) Supplemental oxygen or respiratory treatments needed that are new or not performable at other levels of care [ ]e) New-onset cyanosis [ ]f) Inability to protect airway [ ]g) Chronic lung disease with severe deterioration (not responsive to emergency and observation care treatment as appropriate) as indicated by ANY ONE of the following(34)(36 ): [ ]i) SaO2 5% below baseline in patient with chronic hypoxemia [ ]ii) New requirement for supplemental oxygen to keep SaO2 at baseline or acceptable level [ ]iii) Required supplemental oxygen performable only in acute inpatient setting [ ]iv) Severe airflow or ventilation abnormalities [ ]v) Previously mobile patient unable to walk between rooms [ ]vi Inability to eat or sleep due to dyspnea [ ]vii) Rapid rate of exacerbation onset [ ]viii) Altered mental status ]VII. Severe airflow or ventilation abnormalities (not responsive to emergency and observation care treatment as appropriate) as indicated by ANY ONE of the following(33)(34)(35)(37): [ ]a) PCO2 greater than 42 mm Hg (5.6 kPa) and pH less than 7.35 (new ) [ ]b) Documented PCO2 increased more than 5 mm Hg (0.7 kPa) from disease baseline [ ]c) Airflow measurements [B] less than 60% of previous best or predicted (eg, peak expiratory flow rate less than 300 L/minute) despite intensive emergent treatment [C] [ ]d) Required respiratory treatments that are performable only in acute inpatient setting [ ]VIII. Impending or actual respiratory arrest ( Also use Respiratory Failure GRG for severe respiratory disease and long-term mechanical ventilation patients) [ ]IX. Neurologic abnormalities, including ANY ONE of the following: [ ]a) New findings that suggest ANY ONE of the following: [ ]i) CHIEF METEOROLOGIST infection(38) [ ]ii) Cerebral bleeding, ischemia, or vasospasm(39)(40) [ ]iii) Increased intracranial pressure, hydrocephalus, or cerebral edema(41)(42)(43) [ ]iv) Spinal cord injury(44) [ ]b) Uncontrolled seizures(45) [ ]c) New-onset coma (eg, [place] coma scale score less than 9) or unexplained abnormal mental status (eg, Kirsten coma scale score less than 14) [D](41)(46)(47) [ ]X. New-onset severe neurologic findings requiring inpatient care; examples include(42)(48)(49): [ ]a) Papilledema [ ]b) Cerebral edema [ ]c) Mass effect on CT scan [ ]XI. Suspected acute intra-abdominal process with peritoneal signs, abdominal mass, or similar findings (50)(51)(52) [ ]XII. Severe physiologic disorder remaining after emergency or observation level care (as appropriate) as indicated by ANY ONE of the following (53): [ ]a) Significant dehydration [ ]b) Diabetic ketoacidosis [ ]c) Hyperglycemic hyperosmolar state (eg, osmolality greater than 320 mOsm/kg (mmol/kg) [ ]d) Hypoglycemia [ ]e) Other (new) acid-base disorder with pH less than 7.35 or greater than 7.5(54) [ ]f) Thyroid storm (55) [ ]g) Myxedema coma (55) [ ]XIII. Abdominal abnormalities with ANY ONE of the following(56)(57): [ ]a) Absent bowel sounds with complete ileus [ ]b) Signs of intestinal obstruction or peritonitis [E] [ ]c) Nausea and vomiting that cannot be controlled with outpatient or observation care [ ]XIV. Acute renal failure as indicated by new onset of ANY ONE of the following(9)(10)(11)(12)(13): [ ]a) A 3-fold rise in serum creatinine from baseline [ ]b) Serum creatinine greater than 4 mg/dL (354 micromoles/L) with acute rise greater than 0.5 mg/dL (44.2 micromoles/L) [ ]c) Reduction of more than 75% in estimated glomerular filtration rate from baseline [ ]d) Estimated glomerular filtration rate less than 35 mL/min/ 1.73m2 (0.59 mL/sec/1.73m2) in child up to 18 years of age [ ]e) Cessation of urine output indicated by ALL of the following: [ ]i) Adequate volume status [ ]ii) Inadequate urine output as indicated by ANY ONE of the following: [ ]1) Urine output less than 0.3 mL/kg/hr for 24 hours [ ]2) Anuria (urine output less than 0.1 mL/kg/hr) for 12 hours [ ]XV. Significant uremic complications as indicated by ANY ONE of the following(58)(59)(60): [ ]a) Outpatient therapy is ineffective or not feasible for ANY ONE of the following: [ ]i) Severe heart failure [ ]ii) Severehypertension [ ]iii) Pleural effusion [ ]iv) Pericarditis or pericardial effusion [ ]b) Cardiac arrhythmias of immediate concern [ ]c) Intractable nausea or vomiting [ ]d) Recurrent seizures [ ]e) Encephalopathy [ ]f) Bleeding abnormalities (eg, platelet dysfunction) with active (eg, gastrointestinal) bleeding [ ]g) Dialysis indicated before long-term access or ambulatory arrangements can be made [ ]h) Significant metabolic or electrolyte abnormalities (eg, severe acidosis or hyperkalemia) [ ]XVI. High fever or other high-risk infection situation as indicated by ANY ONE of the following(61)(62)(63)(64): [ ]a) Outpatient and observation care antimicrobial treatment unavailable, not effective, or not appropriate [ ]b) Documented bacteremia [ ]c) Temperature greater than 40.5 degrees C (104.9 degrees F) ( oral) [ ]d) Temperature greater than 39.5 degrees C (103.1 degrees F) ( oral) or less than 36 degrees C (96.8 degrees F) (rectal) that does not respond to e treatment and observation care [ ] XVII. Temperature less than 95 degrees F (35 degrees C)(rectal)(65) [ ] XVIII. Severe nutritional abnormalities as indicated by ALL of the following (66)(67): [ ]a) Inability to tolerate or establish sufficient oral or other enteral nutrition in outpatient setting [ ]b) Parenteral nutrition regimen need that must be implemented on inpatient basis [ ] XIX. Severe electrolyte abnormalities indicated by ALL of the following(68) (69)(70): [ ]a) Electrolytes and associated findings are not as expected for patient baseline or acceptable treatment effects. [ ]b) Severe abnormalities indicated by ANY ONE of the following: [ ]i) Sodium less than 130 mEq/L (mmol/L) (new) [ ]ii)Sodium less than 135 mEq/L (mmol/L) with ANY ONE of the following: [ ]1) Uncorrectable (to near normal or chronic baseline) after trial of outpatient and emergency treatment [ ]2) Altered mental status [ ]3) Seizures [ ]4) Severe medical etiology requiring inpatient management (eg, heart failure, hypovolemia) [ ]iii) Sodium greater than 155 mEq/L (mmol/L) [ ]iv) Sodium greater than 150 mEq/L (mmol/L) with ANY ONE of the following: [ ]1) Uncorrectable (to near normal or chronic baseline) with outpatient and emergency treatment [ ]2) Altered mental status [ ]3) Seizures [ ]4) Severe medical etiology (eg, hypovolemia, diabetes insipidus) [ ]v) Potassium less than 2.5 mEq/L (mmol/L) despite outpatient and emergency treatment [ ]vi) Potassium less than 3 mEq/L (mmol/L) with ANY ONE of the following: [ ]1) Weakness [ ]2) Cardiac abnormality (eg, arrhythmia, conduction disturbance) [ ]3) Cardiac ischemia [ ]4) Ileus [ ]5) Ongoing medical cause requiring inpatient management (eg, acute renal wasting or SIADH) [ ]6) Other severe symptoms [ ]vii) Potassium greater than 6.5 mEq/L (mmol/L) [ ]viii) Potassium greater than 5 mEq/L (mmol/L) with ANY ONE of the following: [ ]1) Uncorrectable (to near normal or chronic baseline) with outpatient and emergency treatment [ ]2) Severe ECG findings [F] [ ]3) Acute worsening of renal failure (creatinine greater than 2.5 mg/dL (221 micromoles/L) or significant elevation for age and size) [ ]4) Severe weakness [ ]5) Severe medical etiology (eg, hemolysis, infection, drug overdose) [ ]ix) Calcium less than 7 mg/dL (1.75 mmol/L) despite outpatient and emergency treatment (72) [ ]x) Calcium less than 8 mg/dL (2 mmol/L) with significant symptoms or findings; examples include(72): [ ]1) Altered mental status [ ]2) Muscle spasms [ ]3) Seizures [ ]4) Breathing difficulty [ ]5) Cardiac abnormality (eg, arrhythmia or conduction disturbance) [ ]xi) Calcium greater than 14 mg/dL (3.5 mmol/L)(72) [ ]xii) Calcium greater than 12 mg/dL (3 mmol/L) with ANY ONE of the following(72): [ ]1) Uncorrectable (to near normal or chronic baseline) with outpatient and emergency treatment [ ]2) Significant dehydration or hypovolemia as indicated by ALL of the following(70)(73)(74): [ ]A. Not resolved with initial treatments [ ]B. Clinically significant dehydration as indicated by ANY ONE of the following: [ ]a. Vomiting refractory to outpatient treatment (ie, precluding oral rehydration) [ ]b. Inability to drink [ ]c. Hypernatremia or other electrolyte abnormality unable to be corrected with outpatient and emergency treatment [ ]d. Failure to remain hydrated with outpatient therapy [ ]e. Reduced urine output [ ]f. Hypotension [ ]g. Serious cause for dehydration requiring acute hospitalization (eg, bowel obstruction, increased intracranial pressure, infectious cause) [ ]h. Child with ANY ONE of the following(75): [ ]1) Severe abdominal tenderness [ ]2) Adequate care not available at home [ ]3) Severe dehydration ( greater than 9% loss of body weight) [ ]4) Significant symptoms or findings; examples include: [ ]A. Altered mental status [ ]B. Cardiac abnormality (eg, arrhythmia, conduction disturbance) [ ]C. Malignant etiology requiring inpatient treatment [ ]xiii) Phosphorus less than 1 mg/dL (0.32 mmol/L) [ ]xiv) Phosphorus less than 1.5 mg/dL (0.48 mmol/L) with ANY ONE of the following: [ ]1) Patient unresponsive to outpatient and emergency treatment [ ]2) Significant symptoms or findings; examples include: [ ]A. Weakness [ ]B. Altered mental status [ ]C. Breathing difficulty [ ]D. Seizures [ ]E. Rhabdomyolysis [ ]xv) Phosphorus greater than 10 mg/dL (3.2 mmol/L) [ ]xvi) Phosphorus greater than 4.5 mg/dL (1.45 mmol/L) (new) with ANY ONE of the following: [ ]1) Severe medical etiology (eg, crush injury, acute renal failure) [ ]2) Associated hypocalcemia with significant findings; examples include: [ ]A. Neurologic symptoms [ ]B. Altered mental status [ ]C. Muscle spasms [ ]D. Seizures [ ]E. Breathing difficulty [ ]F. Cardiac abnormality (eg, arrhythmia, conduction disturbance) [ ]xvii) Magnesium less than 1 mg/dL (0.41 mmol/L) [ ]xviii) Magnesium less than 1.5 mg/dL (0.62 mmol/L) with ANY ONE of the following: [ ]1) Patient unresponsive to outpatient and emergency treatment [ ]2) Associated hypocalcemia with significant findings; examples include: [ ]A. Altered mental status [ ]B. Muscle spasms [ ]C. Seizures [ ]D. Breathing difficulty [ ]E. Cardiac abnormality (eg, arrhythmia , conduction disturbance) [ ]3) Associated hypokalemia (potassium less than 3 mEq/L (mmol/L)) with risk of arrhythmia [ ]xix) Magnesium greater than 4 mEq/L (2 mmol/L) [ ]xx) Magnesium greater than 2.5 mEq/L (1.25 mmol/L) with significant symptoms or findings; examples include: [ ]1) Weakness [ ]2) Altered mental status [ ]3) Cardiac abnormality (eg, arrhythmia, conduction disturbance) [ ]4) Breathing difficulty [ ]5) Severe medical etiology (eg, renal failure, hypovolemia) [ ]xxi) Uric acid greater than 20 mg/dL (1190 micromoles/L)(76) [ ]xxii) Uric acid greater than 8 mg/dL (476 micromoles/L) with significant symptoms or findings of tumor lysis syndrome; examples include(76): [ ]1) Creatinine greater than 1.5 times upper limit of normal [ ]2) Cardiac abnormality (eg, arrhythmia, conduction disturbance) [ ]3) Seizure [ ]XX. Acute blood loss causing significant abnormality as indicated by ANY ONE of the following(77)(78): [ ]a) Hemoglobin less than 10 g/dL (100 g/L) (not baseline) [ ]b) Hematocrit less than 30% (0.30) (not baseline) [ ]c) Repeat hematocrit decreased more than 2% (0.02) [ ]d) Uncontrolled bleeding [ ]XXI. Severe anemia indicated by ANY ONE of the following(78)(79): [ ]a) Altered mental status [ ]b) Chest pain [ ]c) Exertional dyspnea [ ]d) Syncope [ ]e) Other findings suggesting inadequate perfusion [ ]f) Treatment with transfusion or volume replacement is ineffective at resolving ANY ONE of the following [G]: [ ]i) Tachycardia for age [ ]ii) Orthostatic vital sign changes as indicated by ANY ONE of the following(80): [ ]1) Fall in SBP of 20 mm Hg or more 1 to 3 minutes after patient sits or stands from recumbent position [ ]2) Fall in DBP of 10 mm Hg or more 1 to 3 minutes after patient sits or stands from recumbent position [ ]XXII. High-risk low platelet count as indicated by ANY ONE of the following( 81)(82): [ ]a) Severe or life-threatening bleeding (eg, intracranial, major gastrointestinal, or extensive mucosal bleeding), with any reduced platelet count [ ]b) Platelet count less than 20,000/mm3 (20 x109/L) with any active bleeding [ ]c) Platelet count less than 10,000/mm3 (10 x109/L) with minor purpura or petechiae [ ]d) Platelet count less than 5000/mm3 (5 x109/L) [ ]e) Low platelet count with hemolytic anemia [ ]XXIII. Disseminated intravascular coagulation(77)(83) [ ]XXIV. Severe adverse drug or systemic toxin reaction requiring inpatient treatment; examples include(84)(85): [ ]a) Serotonin syndrome(86) [ ]b) Neuroleptic malignant syndrome(86) [ ]c) Cholinergic syndrome with severe symptoms (eg, bronchorrhea, weakness, mental status changes, seizures) [ ]d) Sympathetic syndrome with severe symptoms (eg, seizures, mental status changes, cardiac dysrhythmias) [ ]e) Anticholinergic syndrome [ ]XXV. Severe pain requiring acute inpatient management as indicated by ALL of the following (87)(88)(89): [ ]a) Continuous or frequent (eg, every 2 to 4 hours) parenteral analgesics required [H] [ ]b) Rapid improvement expected from treatment or acute intervention (eg, surgery, anesthesia procedure) [ ]XXVI.Severe behavioral health issues judged unmanageable at a lower level of care (eg, residential) in a patient who is ANY ONE of the following(91) [ ]a) Acutely suicidal [ ]b) A danger to self (eg, self-mutilating or suicidal behavior) [ ]c) A danger to others (eg, assaultive or homicidal behavior) [ ]d) Incapacitated because of grave disability (eg, inability to provide for self at lower level of care) (92) [ ]XXVII. Inpatient monitoring needed; examples include(1)(3)(87)(93)(94)(95)(96 ): [ ]a) Vital signs, neurologic signs, or vascular checks more frequently than every 4 hours [ ]b) Cardiac or respiratory monitoring beyond the scope (eg, over 24 hours) of observation care [ ]c) Pulmonary artery catheter monitoring [ ]d) Suspected compartment syndrome(97) (98) [ ]e) Cerebral bleeding, hydrocephalus, or vasospasm monitoring [ ]f) Increased intracranial pressure or cerebral edema monitoring [ ]g) monitoring [ ]XXVIII. Treatment requiring inpatient care; examples include: [ ]a) IV fluid to replace significant ongoing losses (greater than 3 L/m2 per day)(53) [ ]b) High concentration oxygen (greater than 40%)(33)(99)(100) [ ]c) Frequent respiratory therapy (more frequently than every 4 hours) to maintain airflow rates greater than 60% of baseline(33)(99)(100) [ ]d) Epidural analgesia(87) [ ]e) IV anticoagulation, vasoactive, or antiarrhythmic medication(19 )(23) [ ]f) Acute thrombolytics (generally require 24 hours of observation )(101)(102) [ ]XXIX. Emergency procedures needed; examples include: [ ]a) Emergency inpatient surgery [ ]b) Temporary pacemaker placement(103) [ ]c) Chest tube placement with active evacuation (eg, suction, drainage)(104) [ ]d) Emergent cardioversion(105) [ ]e) Emergent cardiac or vascular procedures (eg, cardiac catheterization, angioplasty) (17)(18) [ ]f) Emergent dialysis access placement and institution(10)(106) [ ]g) Emergent pericardiocentesis(107) [ ]h) Emergent plasmapheresis or leukapheresis(83) [ ]i) Emergent tracheostomy The original [employer] content created by [employer] has been revised. The portions of the content which have been revised are identified through the use of italic text or in bold, and [employer] has neither reviewed nor approved the modified material. All other unmodified content is copyright [employer]. Please see references footnoted in the original [employer] edition 2016 Admission Criteria Met: Yes
--- NOTE | 2017-02-06 12:43 | History and Physical Report ---
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 Pt unable to provide history, but history taken from EMS staff, ED staff, and SNF staff. As per SNF staff, "patient not acting like herself." Patient was also found to be hypotensive with systolic BP in 70's. EMS notified , and patient transported to ED. Pt seen and evaluated in ED and found to be in septic shock, encephalopathy, and pending multiple organ system failure. Pt is able to protect her airway. Past History Past Medical History: arthritis, hypertension, hyperlipidemia Past Surgical History: , total hip replacement Social history: . denies: smoking, alcohol abuse, prescription drug abuse, IV drug use Family history: CAD, hypertension Medications and Allergies Allergies Allergy/AdvReac Type Severity Reaction Status Date / Time Sulfa (Sulfonamide Allergy Mild Itching Verified 01/20/17 21:31 Antibiotics) Home Medications Medication Instructions Recorded Confirmed Last Taken Type Atenolol [Tenormin] 100 mg PO DAILY 01/20/17 02/06/17 01/19/17 History Hydrochlorothiazide [HCTZ] 25 mg PO QDAY 01/20/17 02/06/17 01/19/17 History Lisinopril [Zestril TAB] 40 mg PO QDAY 01/20/17 02/06/17 01/19/17 History Simvastatin [Zocor TAB] 10 mg PO QHS 01/20/17 02/06/17 01/19/17 History amLODIPine [Norvasc] 5 mg PO DAILY 01/20/17 02/06/17 01/19/17 History Apixaban [Eliquis] 2.5 mg PO BID 35 Days 01/24/17 02/06/17 Unknown Rx Levofloxacin [Levaquin TAB] 750 mg PO DAILY #10 tablet 01/25/17 02/06/17 Unknown Rx Active Meds: Active Medications Dextrose (D10w) 1,000 mls @ 75 mls/hr IV DIRECT JOVON Sodium Chloride (Nacl 0.9% 1000 Ml) 1,000 mls @ 999 mls/hr IV BOLUS ONE Stop: 02/06/17 13:36 Review of Systems ROS unobtainable: due to mental status Exam - Constitutional Vitals: Temp Pulse Resp BP Pulse Ox 97.5 F L 110 H 38 H 86/51 100 02/06/17 09:27 02/06/17 09:27 02/06/17 09:27 02/06/17 09:27 02/06/17 09:27 General appearance: Present: severe distress - EENT Eyes: Present: PERRL ENT: hearing intact, clear oral mucosa - Neck Neck: Present: supple, normal ROM - Respiratory Respiratory effort: normal Respiratory: bilateral: diminished - Cardiovascular Rhythm: other (tachycardic) - Extremities Extremities: pulses symmetrical, No edema Peripheral Pulses: abnormal (capillary refill: 4 seconds) - Abdominal General gastrointestinal: Present: soft, non-tender, non-distended, normal bowel sounds Female genitourinary: Present: normal - Integumentary Integumentary: Present: clear, dry, clammy, decreased turgor - Musculoskeletal Musculoskeletal: generalized weakness - Psychiatric Psychiatric: no intact judgment & insight, no memory intact - Neurologic Neurologic: moves all extremities, no gait normal Results - Labs CBC & Chem 7: 02/06/17 10:07 02/06/17 10:07 Labs: Abnormal lab results 02/06/17 02/06/17 02/06/17 Range/Units 09:57 10:07 10:07 WBC 33.2 H (4.5-11.0) K/mm3 RBC 3.34 L (3.65-5.03) M/mm3 Hgb 9.1 L (10.1-14.3) gm/dl Hct 28.1 L (30.3-42.9) % MCH 27 L (28-32) pg RDW 16.0 H (13.2-15.2) % Seg Neuts % (Manual) 90.0 H (40.0-70.0) % Lymphocytes % (Manual) 3.5 L (13.4-35.0) % Seg Neutrophils # Man 29.9 H (1.8-7.7) K/mm3 PT 27.7 H (12.2-14.9) Sec. INR 2.57 H (0.87-1.13) POC ABG pCO2 (35-45) VBG pH (7.320-7.420) Sodium (137-145) mmol/L Chloride (98-107) mmol/L Carbon Dioxide (22-30) mmol/L BUN (7-17) mg/dL Creatinine (0.7-1.2) mg/dL Glucose (65-100) mg/dL POC Glucose 47 L (70-105) Lactic Acid (0.7-2.0) mmol/L Calcium (8.4-10.2) mg/dL Magnesium (1.7-2.3) mg/dL AST (5-40) units/L Total Creatine Kinase (30-135) units/L Troponin T (0.00-0.029) ng/mL Total Protein (6.3-8.2) g/dL Albumin (3.9-5) g/dL LDL Cholesterol Direct (50-130) mg/dL HDL Cholesterol (40-59) mg/dL 02/06/17 02/06/17 02/06/17 Range/Units 10:07 10:07 10:07 WBC (4.5-11.0) K/mm3 RBC (3.65-5.03) M/mm3 Hgb (10.1-14.3) gm/dl Hct (30.3-42.9) % MCH (28-32) pg RDW (13.2-15.2) % Seg Neuts % (Manual) (40.0-70.0) % Lymphocytes % (Manual) (13.4-35.0) % Seg Neutrophils # Man (1.8-7.7) K/mm3 PT (12.2-14.9) Sec. INR (0.87-1.13) POC ABG pCO2 (35-45) VBG pH 7.281 L (7.320-7.420) Sodium 153 H (137-145) mmol/L Chloride 113.5 H (98-107) mmol/L Carbon Dioxide 16 L (22-30) mmol/L BUN 103 H (7-17) mg/dL Creatinine 4.1 H (0.7-1.2) mg/dL Glucose 340 H (65-100) mg/dL POC Glucose (70-105) Lactic Acid 5.50 H* (0.7-2.0) mmol/L Calcium 8.2 L (8.4-10.2) mg/dL Magnesium (1.7-2.3) mg/dL AST 102 H (5-40) units/L Total Creatine Kinase (30-135) units/L Troponin T (0.00-0.029) ng/mL Total Protein 5.5 L (6.3-8.2) g/dL Albumin 2.3 L (3.9-5) g/dL LDL Cholesterol Direct (50-130) mg/dL HDL Cholesterol (40-59) mg/dL 02/06/17 02/06/17 02/06/17 Range/Units 10:07 10:50 11:16 WBC (4.5-11.0) K/mm3 RBC (3.65-5.03) M/mm3 Hgb (10.1-14.3) gm/dl Hct (30.3-42.9) % MCH (28-32) pg RDW (13.2-15.2) % Seg Neuts % (Manual) (40.0-70.0) % Lymphocytes % (Manual) (13.4-35.0) % Seg Neutrophils # Man (1.8-7.7) K/mm3 PT (12.2-14.9) Sec. INR (0.87-1.13) POC ABG pCO2 27.1 L (35-45) VBG pH (7.320-7.420) Sodium (137-145) mmol/L Chloride (98-107) mmol/L Carbon Dioxide (22-30) mmol/L BUN (7-17) mg/dL Creatinine (0.7-1.2) mg/dL Glucose (65-100) mg/dL POC Glucose 59 L (70-105) Lactic Acid (0.7-2.0) mmol/L Calcium (8.4-10.2) mg/dL Magnesium 2.70 H (1.7-2.3) mg/dL AST (5-40) units/L Total Creatine Kinase 3091 H (30-135) units/L Troponin T 0.089 H (0.00-0.029) ng/mL Total Protein (6.3-8.2) g/dL Albumin (3.9-5) g/dL LDL Cholesterol Direct 45 L (50-130) mg/dL HDL Cholesterol 12 L (40-59) mg/dL 02/06/17 Range/Units 11:45 WBC (4.5-11.0) K/mm3 RBC (3.65-5.03) M/mm3 Hgb (10.1-14.3) gm/dl Hct (30.3-42.9) % MCH (28-32) pg RDW (13.2-15.2) % Seg Neuts % (Manual) (40.0-70.0) % Lymphocytes % (Manual) (13.4-35.0) % Seg Neutrophils # Man (1.8-7.7) K/mm3 PT (12.2-14.9) Sec. INR (0.87-1.13) POC ABG pCO2 (35-45) VBG pH (7.320-7.420) Sodium (137-145) mmol/L Chloride (98-107) mmol/L Carbon Dioxide (22-30) mmol/L BUN (7-17) mg/dL Creatinine (0.7-1.2) mg/dL Glucose (65-100) mg/dL POC Glucose 285 H (70-105) Lactic Acid (0.7-2.0) mmol/L Calcium (8.4-10.2) mg/dL Magnesium (1.7-2.3) mg/dL AST (5-40) units/L Total Creatine Kinase (30-135) units/L Troponin T (0.00-0.029) ng/mL Total Protein (6.3-8.2) g/dL Albumin (3.9-5) g/dL LDL Cholesterol Direct (50-130) mg/dL HDL Cholesterol (40-59) mg/dL Assessment and Plan - Patient Problems (1) Sepsis Current Visit: Yes Status: Acute Qualifiers: Sepsis type: S Plan to address problem: Sepsis protocol: IV abx, IVF, iv pressor support as clinically indicated, serial lactic acid level, monitor uop q shift, blood cultures, The high probability of a clinically significant, sudden or life threatening deterioration of the [Renal, Cardiac, Pulmonary, Endocrine] system(s) required my full and direct attention, intervention and personal management. The aggregate critical care time was [65] minutes. This time is in addition to time spent performing reported procedures but includes the following: [x] Data Review and interpretation [x] Patient assessment and monitoring of vital signs [x] Documentation [x] Medication orders and management (2) Lactic acidosis Current Visit: Yes Status: Acute Plan to address problem: IVF, monitor uop q shift, treat sepsis, serial lactic acid levels (3) Toxic encephalopathy Current Visit: Yes Status: Acute Plan to address problem: Treat sepsis: IV abx, ivf, routine neuro checks (4) ARF (acute renal failure) Current Visit: Yes Status: Acute Qualifiers: Acute renal failure type: A Plan to address problem: Monitor uop q shift, IVF replacement, supportive care. (5) DVT prophylaxis Current Visit: Yes Status: Acute
--- NOTE | 2017-02-06 12:47 | Cat Scan Report ---
CT HEAD WITHOUT CONTRAST INDICATION: Altered mental status. COMPARISON: None similar. FINDINGS: Noncontrast head CT demonstrates normal sulci and symmetric, age-appropriate, mild to moderately enlarged ventricles. Mild periventricular and few white matter hypodense small vessel ischemic disease as well. Few small lacunar infarcts as approximately 8 mm in the left bridges radiata and 4 mm in left thalamus. Mild, benign bilateral basal ganglia calcifications. A 1.4 cm left temporal lobe hypodensity as on axial image 16, series 2 is though of uncertain chronicity. No acute hemorrhage, mass effect or midline shift. No abnormal extra axial fluid collections. Normal posterior fossa with preserved basilar cisterns. Normal eye globes. Slight rightward nasal septal deviation anteriorly. Clear imaged paranasal sinuses and mastoid air cells. Dense atherosclerotic ICA calcifications. Normal calvarium and scalp. Numerous missing teeth and few radiopaque dental filling material noted. Cervical spondylosis. CONCLUSION: 1. Approximately 1.4 cm left temporal lobe hypodensity, of indeterminate age and clinical significance, not reliably distinguished acute versus chronic on this exam alone. 2. Other findings, including age-appropriate atrophy and microvascular changes, as described. Please also correlate clinically and directly with similar prior imaging, if available. Otherwise, MRI would be further informative, if warranted. Thank you for the opportunity to participate in this patient's care.
[2017-02-06] MEDS ORDERED: ALUM-MAG HYDROX-SIMETH 200-200-20MG/5ML PO PRN (13:10)
[2017-02-06] MEDS ORDERED: VANCOMYCIN VIAL IV ONE (13:10)
[2017-02-06] MEDS ORDERED: MILK OF MAGNESIA PO PRN (13:10)
[2017-02-06] MEDS ORDERED: NACL 0.9% 1000 ML IV ONE (13:10)
[2017-02-06] MEDS ORDERED: DULCOLAX PR PRN (13:10)
[2017-02-06] MEDS ORDERED: NACL 0.9% 500 ML 500 ML ONE (13:37)
[2017-02-06] MEDS ORDERED: ZOSYN/NS 4.5GM/100ML 4.5 GM/100 ML VIAL IV SCH (14:00)
[2017-02-06] MEDS ORDERED: VANCOMYCIN PHARMACY TO DOSE IV SCH (14:00)
[2017-02-06] MEDS ORDERED: VANCOMYCIN/NS 1 GM/250 ML 1 GM/250 ML BAG IV SCH (14:00)
[2017-02-06] MEDS ORDERED: VANCOMYCIN/NS 1 GM/250 ML 1 GM/250 ML BAG IV ONE (14:08)
[2017-02-06] MEDS: ZOSYN/NS 2.25 GM/50ML 2.25 GM/50 ML BAG IV SCH ×2 (16:11→22:57)
--- NOTE | 2017-02-06 17:13 | Procedure Note ---
Date of procedure: 02/06/17 Pre-op diagnosis: sepsis Procedure: Right IJ Central Line Placement under Ultrasound guidance. After informed consent obtained, the patient was prepped and draped in the usual sterile fashion. Timeout taken to verify patient, procedure, and operative site. Local anesthesia obtained with lidocaine. Ultrasound was utilized to locate the RIJV without difficulty. The the seldinger technique was utilized to access the RIJV. A guidewire was then advanced into the RIJV, and the seeker needle removed over the guidewire. A scalpel was used to incise the skin, and a dilator was then passed over the guidewire. A pre flushed triple lumen catheter was advanced into the RIJV, and the guidewire was then removed. The triple lumen catheter was sewn in place, and a biopatch placed at the insertion site. All three ports flush and draw with ease. A postop CXR was taken to verify line placement. No Pneumothorax, Central line terminates in SVC. Complications: None EBL: minimal Specimen: None Anesthesia: local Surgeon: ROSELINE SKINNER Estimated blood loss: minimal Pathology: none Disposition: ICU
--- NOTE | 2017-02-06 17:16 | Consultation ---
History of Present Illness - Reason for Consult Consult date: 02/06/17 acute renal failure, metabolic acidosis - History of Present Illness 76 YO Female Half-Way Resident with HTN, HLD, OA, presents to ED for evaluation. Pt unable to provide history, but history taken from EMS staff, ED staff, and SNF staff. As per SNF staff, "patient not acting like herself." Patient was also found to be hypotensive with systolic BP in 70's. EMS notified , and patient transported to ED. Pt seen and evaluated in ED and found to be in septic shock, encephalopathy, and pending multiple organ system failure. Pt is able to protect her airway. Past History Past Medical History: arthritis, hypertension, hyperlipidemia Past Surgical History: , total hip replacement Social history: . denies: smoking, alcohol abuse, prescription drug abuse, IV drug use Family history: CAD, hypertension Past History Past Medical History: arthritis, hypertension, hyperlipidemia Past Surgical History: , total hip replacement Social history: . denies: smoking, alcohol abuse, prescription drug abuse, IV drug use Family history: CAD, hypertension Medications and Allergies Allergies Allergy/AdvReac Type Severity Reaction Status Date / Time Sulfa (Sulfonamide Allergy Mild Itching Verified 01/20/17 21:31 Antibiotics) Home Medications Medication Instructions Recorded Confirmed Last Taken Type Atenolol [Tenormin] 100 mg PO DAILY 01/20/17 02/06/17 01/19/17 History Hydrochlorothiazide [HCTZ] 25 mg PO QDAY 01/20/17 02/06/17 01/19/17 History Lisinopril [Zestril TAB] 40 mg PO QDAY 01/20/17 02/06/17 01/19/17 History Simvastatin [Zocor TAB] 10 mg PO QHS 01/20/17 02/06/17 01/19/17 History amLODIPine [Norvasc] 5 mg PO DAILY 01/20/17 02/06/17 01/19/17 History Apixaban [Eliquis] 2.5 mg PO BID 35 Days 01/24/17 02/06/17 Unknown Rx Levofloxacin [Levaquin TAB] 750 mg PO DAILY #10 tablet 01/25/17 02/06/17 Unknown Rx Active Meds: Active Medications Bisacodyl (Dulcolax) 10 mg [place] QDAY PRN PRN Reason: constipation unrelieved by MOM Dextrose (D50w (25gm)) 50 gm IV PRN PRN PRN Reason: Hypoglycemia Piperacillin Sod/Tazobactam Sod (Zosyn/Ns 2.25 Gm/50ml) 2.25 gm in 50 mls @ 100 mls/hr IV Q8HR JOVON Last Admin: 02/06/17 16:11 Dose: 100 mls/hr Dextrose (D10w) 1,000 mls @ 42 mls/hr IV DIRECT JOVON Sodium Bicarbonate 50 meq/ (Dextrose) 1,050 mls @ 125 mls/hr IV DIRECT JOVON Vancomycin HCl (Vancomycin Pharmacy To Dose) 1 each IV PKCONSULT JOVON PRN Reason: Protocol Review of Systems ROS unobtainable: due to mental status Exam - Vital Signs Vital signs: Vital Signs Temp Pulse Resp BP Pulse Ox 97.5 F L 110 H 38 H 86/51 100 02/06/17 09:27 02/06/17 09:27 02/06/17 09:27 02/06/17 09:27 02/06/17 09:27 - Physical Exam Narrative exam: General appearance: Present: severe distress - EENT Eyes: Present: PERRL ENT: hearing intact, clear oral mucosa - Neck Neck: Present: supple, normal ROM - Respiratory Respiratory effort: normal Respiratory: bilateral: diminished - Cardiovascular Rhythm: other (tachycardic) - Extremities Extremities: pulses symmetrical, No edema Peripheral Pulses: abnormal (capillary refill: 4 seconds) - Abdominal General gastrointestinal: Present: soft, non-tender, non-distended, normal bowel sounds Female genitourinary: Present: normal - Integumentary Integumentary: Present: clear, dry, clammy, decreased turgor - Musculoskeletal Musculoskeletal: generalized weakness - Psychiatric Psychiatric: no intact judgment & insight, no memory intact - Neurologic Neurologic: moves all extremities, no gait normal Results - Lab Results 02/06/17 10:07 02/06/17 10:07 Most recent lab results Calcium 8.2 mg/dL (8.4-10.2) L 02/06/17 10:07 Magnesium 2.70 mg/dL (1.7-2.3) H 02/06/17 10:07 Assessment and Plan Impression: * DAYNE * metabolic acidosis * AMS * volume depletion * hypernatremia Plan: * iv fluids with sodium bicarb * hypotonic ivfs * strict i/os * daily lytes * avoid nephrotoxins * follow up renal us
[2017-02-06] MEDS ORDERED: D5W 1,000 ML with SODIUM BICARBONATE 50 MEQ IV SCH (18:00)
[2017-02-06] MEDS ORDERED: INTROPIN DRIP 800 MG/D5W 250 ML 800 MG/250 ML BAG IV SCH (18:57)
[2017-02-07] MEDS: LEVOPHED DRIP 4 MG/NS 250 ML 4 MG/250 ML BAG IV SCH ×8 (02:52→20:31)
[2017-02-07] MEDS ORDERED: NACL 0.9% 500 ML 500 ML IV ONE ×3 (03:32→06:15)
[2017-02-07] MEDS ORDERED: ADRENALIN ONE ×2 (03:54→03:59)
[2017-02-07] MEDS ORDERED: ATROPINE 0.1% (CARDIAC) ONE (03:54)
[2017-02-07] MEDS ORDERED: SODIUM BICARBONATE IV ONE ×6 (03:54→06:39)
[2017-02-07] MEDS ORDERED: CALCIUM CHLORIDE IV ONE (03:54)
[2017-02-07] MEDS ORDERED: VASELINE LIP THERAPY TP PRN (04:30)
[2017-02-07] MEDS ORDERED: ARTIFICIAL TEARS OPHTH OINT OU PRN (04:30)
[2017-02-07] MEDS ORDERED: D5NS 0.2% 1,000 ML IV ONE (04:32)
[2017-02-07] MEDS ORDERED: fentaNYL DRIP Premix 2,000 MCG/100 ML BAG IV ONE (04:36)
--- NOTE | 2017-02-07 04:36 | Event Note ---
Date: 02/07/17 CODE BLUE called Patient became bradycardic, atropine was given She then went into PDA and ACLS protocol was initiated. Patient was shocked twice for V. fib She had copious amount of hematemesis There was of the case are ROSC Obtain stat labs now Start protonic drip, patient will be intubated, IV fluid bolus Patient has persistent tachycardia, heart rate in the 190s Adenosine 6 and 12 was given which slowed her rate to 110 Her underlying rhythm is A. fib, Cardizem 20 mg IV was given Patient was also started on maintenance fluid of D5 half-normal Her hemoglobin came back less than 5, she will be changing shoes providing EKG was obtained and reviewed, new changes on EKG Check cardiac enzymes, consult cardiology Patient is currently acidotic, ABG was reviewed, bicarbonate drip was discontinued Gift 2 ounce by cough and restart bicarbonate drip Patient has been on Levothroid drip prior to the code, will add Philip-Synephrine INR greater than 2.5, transfuse FFP Patient is full code, family was made aware
[2017-02-07] MEDS ORDERED: CARDIZEM ONE (04:48)
[2017-02-07] MEDS ORDERED: PROTONIX 80 MG in NACL 0.9% 100 ML IV SCH (05:00)
[2017-02-07] MEDS ORDERED: MIDAZOLAM 100 MG in NACL 0.9% 80 ML IV SCH (05:00)
[2017-02-07] MEDS ORDERED: fentaNYL DRIP Premix 2,000 MCG/100 ML BAG IV SCH (05:00)
[2017-02-07 05:06] LABS: Mean Corpuscular HGB Conc 32 % (30-34); Mean Corpuscular Hemoglobin 27 pg (28-32); Mean Corpuscular Volume 86 fl (79-97); Platelet Count 154 K/mm3 (140-440); Red Cell Distribution Width 16.5 % (13.2-15.2)
[2017-02-07] MEDS ORDERED: NACL 0.45% 1000 ML 1,000 ML IV ONE (05:12)
[2017-02-07 05:20] LABS: INR 2.53 (0.87-1.13); White Blood Count 29.9 K/mm3 (4.5-11.0)
[2017-02-07 05:21] LABS: Hematocrit 15.4 % (30.3-42.9); Hemoglobin 4.9 gm/dl (10.1-14.3)
[2017-02-07 05:26] LABS: Creatine Kinase MB 162.9 ng/mL (0.0-4.0)
[2017-02-07 05:28] LABS: Albumin 1.2 g/dL (3.9-5); Albumin/Globulin Ratio 0.6 %; BUN/Creatinine Ratio 28.33; Bilirubin,Total 0.2 mg/dL (0.1-1.2); Calcium 6.4 mg/dL (8.4-10.2); Chloride 119.4 mmol/L (98-107); Potassium 4.9 mmol/L (3.6-5.0); Total Protein 3.1 g/dL (6.3-8.2)
[2017-02-07] MEDS: NEO-SYNEPHRINE 100 MG in NACL 0.9% 90 ML IV SCH ×5 (05:34→21:02)
--- NOTE | 2017-02-07 05:40 | XRay Report ---
FINAL REPORT PROCEDURE: XR CHEST 1V AP TECHNIQUE: Chest radiograph anteroposterior view. CPT 17393 HISTORY: ETT placement COMPARISON: No prior studies are available for comparison. FINDINGS: Heart: Normal. Mediastinum/Vessels: Normal. Lungs/Pleural space: Bilateral lower lung atelectasis. No effusion or pneumothorax. Bony thorax: No acute osseous abnormality. Life support devices: The endotracheal tube ends 3 centimeters above the brayan. A right central catheter ends in the SVC. IMPRESSION: Bilateral lower lung atelectasis. No effusion or pneumothorax. Endotracheal tube and right central catheter are properly positioned..
[2017-02-07 05:52] LABS: ISTAT Base Excess -17; ISTAT HCO3 13.6; ISTAT PCO2 53.8 (35-45); ISTAT PH 7.011 (7.35-7.45); ISTAT PO2 251 (80-105); ISTAT SO2 100; ISTAT TCO2 15
[2017-02-07] MEDS ORDERED: NACL 0.45% 1000 ML 1,000 ML IV SCH (06:00)
[2017-02-07] MEDS: ZOSYN/NS 2.25 GM/50ML 2.25 GM/50 ML BAG IV SCH ×3 (06:14→21:01)
[2017-02-07] MEDS ORDERED: ADRENALIN IV ONE ×3 (06:33→06:39)
[2017-02-07] MEDS ORDERED: ATROPINE IV ONE (06:33)
[2017-02-07] MEDS ORDERED: CARDIZEM IV ONE ×2 (06:36)
[2017-02-07 06:43] LABS: Basophils % (Manual) 0 % (0.0-1.8); Blastocytes % (Manual) 0 %; Diff Status Complete; Eosinophils % (Manual) 0 % (0.0-4.3); Platelet Estimate Consistent w Auto; RBC Morphology Normal
[2017-02-07] MEDS ORDERED: SODIUM BICARBONATE 150 MEQ in D5W 1,000 ML IV SCH (07:00)
--- NOTE | 2017-02-07 07:08 | Emergency Department Report ---
ED CPR HPI - General Chief Complaint: Altered Mental Status Stated Complaint: AMS Time Seen by Provider: 02/06/17 10:28 Source: EMS (ems notes not available at time of chart dictation), RN notes reviewed, old records reviewed Mode of arrival: Stretcher Limitations: Altered Mental Status, Physical Limitation - History of Present Illness Initial Comments: I was called into patient's room patient started bradying down and recieved CPR [address] Gamez took over the code. - Related Data Home Medications Medication Instructions Recorded Confirmed Last Taken Atenolol [Tenormin] 100 mg PO DAILY 01/20/17 02/06/17 01/19/17 Hydrochlorothiazide [HCTZ] 25 mg PO QDAY 01/20/17 02/06/17 01/19/17 Lisinopril [Zestril TAB] 40 mg PO QDAY 01/20/17 02/06/17 01/19/17 Simvastatin [Zocor TAB] 10 mg PO QHS 01/20/17 02/06/17 01/19/17 amLODIPine [Norvasc] 5 mg PO DAILY 01/20/17 02/06/17 01/19/17 Previous Rx's Medication Instructions Recorded Last Taken Type Apixaban [Eliquis] 2.5 mg PO BID 35 Days 01/24/17 Unknown Rx Levofloxacin [Levaquin TAB] 750 mg PO DAILY #10 tablet 01/25/17 Unknown Rx Allergies Allergy/AdvReac Type Severity Reaction Status Date / Time Sulfa (Sulfonamide Allergy Mild Itching Verified 01/20/17 21:31 Antibiotics) ED Review of Systems ROS: Stated complaint: AMS Other details as noted in HPI Comment: Unobtainable due to pts medical conditions ED Past Medical Hx - Past Medical History Previous Medical History?: Yes Hx Hypertension: Yes Hx Arthritis: Yes (knees) Hx HIV: No Additional medical history: high cholesterol - Surgical History Past Surgical History?: Yes Additional Surgical History: 3 c sections; left hip - Social History Smoking Status: Unknown if ever smoked Substance Use Type: None - Medications Home Medications: Home Medications Medication Instructions Recorded Confirmed Last Taken Type Atenolol [Tenormin] 100 mg PO DAILY 01/20/17 02/06/17 01/19/17 History Hydrochlorothiazide [HCTZ] 25 mg PO QDAY 01/20/17 02/06/17 01/19/17 History Lisinopril [Zestril TAB] 40 mg PO QDAY 01/20/17 02/06/17 01/19/17 History Simvastatin [Zocor TAB] 10 mg PO QHS 01/20/17 02/06/17 01/19/17 History amLODIPine [Norvasc] 5 mg PO DAILY 01/20/17 02/06/17 01/19/17 History Apixaban [Eliquis] 2.5 mg PO BID 35 Days 01/24/17 02/06/17 Unknown Rx Levofloxacin [Levaquin TAB] 750 mg PO DAILY #10 tablet 01/25/17 02/06/17 Unknown Rx ED Physical Exam - General Limitations: Altered Mental Status, Physical Limitation (Unable due to acuity of condition ) General appearance: in no apparent distress, lethargic ED Course Vital Signs 02/06/17 02/06/17 02/06/17 09:27 09:30 09:45 Temperature 97.5 F L Pulse Rate 110 H 109 H 108 H Respiratory 38 H 43 H 53 H Rate Blood Pressure 86/51 86/51 81/40 O2 Sat by Pulse 100 100 55 L Oximetry 02/06/17 02/06/17 02/06/17 10:00 10:16 10:30 Temperature Pulse Rate 102 H 91 H 95 H Respiratory 50 H 43 H 45 H Rate Blood Pressure 81/40 81/52 81/52 O2 Sat by Pulse 71 L 51 L Oximetry 02/06/17 02/06/17 02/06/17 10:46 11:00 11:16 Temperature Pulse Rate 93 H 98 H 90 Respiratory 41 H 13 41 H Rate Blood Pressure 102/52 100/52 121/55 O2 Sat by Pulse Oximetry 02/06/17 02/06/17 02/06/17 11:30 11:45 12:00 Temperature Pulse Rate 89 92 H 94 H Respiratory 35 H 37 H 39 H Rate Blood Pressure 116/52 110/59 110/59 O2 Sat by Pulse Oximetry 02/06/17 02/06/17 02/06/17 12:15 12:30 12:45 Temperature Pulse Rate 94 H 98 H 94 H Respiratory 36 H 37 H 38 H Rate Blood Pressure 89/50 89/43 111/62 O2 Sat by Pulse Oximetry 02/06/17 02/06/17 02/06/17 13:00 13:15 13:30 Temperature Pulse Rate 91 H 95 H 94 H Respiratory 35 H 36 H 38 H Rate Blood Pressure 101/57 95/51 102/55 O2 Sat by Pulse Oximetry 02/06/17 02/06/17 02/06/17 13:45 14:00 14:15 Temperature Pulse Rate 93 H 91 H 88 Respiratory 40 H 41 H 39 H Rate Blood Pressure 106/59 114/62 95/50 O2 Sat by Pulse Oximetry 02/06/17 02/06/17 02/06/17 14:30 14:45 15:01 Temperature Pulse Rate 91 H 93 H 94 H Respiratory 38 H 25 H 38 H Rate Blood Pressure 90/56 90/56 115/82 O2 Sat by Pulse Oximetry 02/06/17 02/06/17 02/06/17 15:15 15:31 15:45 Temperature Pulse Rate 97 H 95 H 94 H Respiratory 39 H 38 H 34 H Rate Blood Pressure 115/82 92/54 92/54 O2 Sat by Pulse Oximetry 02/06/17 02/06/17 02/06/17 16:00 16:15 16:30 Temperature Pulse Rate 95 H 95 H 94 H Respiratory 34 H 31 H 35 H Rate Blood Pressure 100/54 100/54 83/43 O2 Sat by Pulse Oximetry 02/06/17 02/06/17 02/06/17 16:45 17:01 17:15 Temperature Pulse Rate 94 H 98 H 99 H Respiratory 41 H 36 H 35 H Rate Blood Pressure 90/53 90/53 91/50 O2 Sat by Pulse Oximetry 02/06/17 02/06/17 02/06/17 17:30 17:43 17:45 Temperature 97.6 F Pulse Rate 96 H 97 H Respiratory 34 H 38 H Rate Blood Pressure 88/45 85/45 O2 Sat by Pulse 97 Oximetry 02/06/17 02/06/17 02/06/17 18:01 18:15 18:30 Temperature Pulse Rate 97 H 98 H 104 H Respiratory 39 H 39 H 41 H Rate Blood Pressure 88/45 86/44 78/49 O2 Sat by Pulse Oximetry 02/06/17 02/06/17 02/06/17 18:45 19:00 19:15 Temperature Pulse Rate 97 H 96 H 102 H Respiratory 44 H 44 H 42 H Rate Blood Pressure 86/41 77/48 77/48 O2 Sat by Pulse Oximetry 02/06/17 02/06/17 02/06/17 19:30 19:45 20:00 Temperature Pulse Rate 99 H 91 H 92 H Respiratory 41 H 40 H 39 H Rate Blood Pressure 97/50 99/52 101/58 O2 Sat by Pulse Oximetry 02/06/17 02/06/17 02/06/17 20:15 20:30 20:45 Temperature Pulse Rate 92 H 92 H 92 H Respiratory 39 H 40 H 39 H Rate Blood Pressure 100/52 96/49 107/56 O2 Sat by Pulse Oximetry 02/06/17 02/06/17 02/06/17 21:01 21:15 21:31 Temperature Pulse Rate 93 H 94 H 101 H Respiratory 40 H 36 H 36 H Rate Blood Pressure 99/55 99/55 102/54 O2 Sat by Pulse Oximetry 02/06/17 02/06/17 02/06/17 21:45 22:00 22:15 Temperature Pulse Rate 95 H 100 H 97 H Respiratory 41 H 38 H 45 H Rate Blood Pressure 102/54 88/46 81/45 O2 Sat by Pulse Oximetry 02/06/17 02/06/17 02/06/17 22:30 22:46 23:00 Temperature Pulse Rate 108 H 109 H 107 H Respiratory 41 H 43 H 44 H Rate Blood Pressure 92/53 103/55 104/65 O2 Sat by Pulse Oximetry 02/06/17 02/06/17 02/06/17 23:16 23:30 23:45 Temperature Pulse Rate 105 H 105 H 105 H Respiratory 42 H 42 H 41 H Rate Blood Pressure 105/57 114/63 113/61 O2 Sat by Pulse Oximetry 02/07/17 02/07/17 02/07/17 00:00 00:15 00:30 Temperature Pulse Rate 103 H 102 H 101 H Respiratory 42 H 43 H 38 H Rate Blood Pressure 104/63 102/57 101/47 O2 Sat by Pulse Oximetry 02/07/17 02/07/17 02/07/17 00:32 00:45 01:00 Temperature Pulse Rate 102 H 102 H 105 H Respiratory 26 H 40 H 28 H Rate Blood Pressure 101/47 110/51 110/51 O2 Sat by Pulse Oximetry 02/07/17 02/07/17 02/07/17 01:16 01:30 01:45 Temperature Pulse Rate 108 H 108 H 109 H Respiratory 33 H 22 32 H Rate Blood Pressure 88/47 93/49 102/48 O2 Sat by Pulse Oximetry 02/07/17 02/07/17 02/07/17 02:00 02:16 02:30 Temperature Pulse Rate 112 H 111 H 118 H Respiratory 38 H 39 H 38 H Rate Blood Pressure 73/44 102/64 102/64 O2 Sat by Pulse Oximetry 02/07/17 02/07/17 02/07/17 02:46 03:00 03:16 Temperature Pulse Rate 117 H 118 H 114 H Respiratory 32 H 38 H 28 H Rate Blood Pressure 98/43 98/43 63/31 O2 Sat by Pulse Oximetry 02/07/17 02/07/17 02/07/17 03:30 03:45 04:00 Temperature Pulse Rate 118 H 77 160 H Respiratory 30 H 21 100 H Rate Blood Pressure 78/45 62/33 73/10 O2 Sat by Pulse Oximetry 02/07/17 02/07/17 02/07/17 04:15 04:27 04:30 Temperature Pulse Rate 171 H 175 H 177 H Respiratory 23 12 Rate Blood Pressure 188/104 117/88 117/88 O2 Sat by Pulse Oximetry 02/07/17 02/07/17 02/07/17 04:45 05:00 05:16 Temperature Pulse Rate 162 H 144 H 156 H Respiratory 18 18 19 Rate Blood Pressure 69/43 83/46 78/51 O2 Sat by Pulse Oximetry 02/07/17 02/07/17 02/07/17 05:30 05:46 06:00 Temperature Pulse Rate 156 H 115 H 143 H Respiratory 18 20 19 Rate Blood Pressure 123/82 84/57 O2 Sat by Pulse Oximetry - Intubation Time Out Performed: No (patient was being coded) Sedative: none Laryngoscope: none Size: 3 ET Tube Size: 7.5 Tube Secured Depth (cm): 20 Tube Secured Location: teeth Tube Placement Confirmation: visualized tube passing t, equal breath sounds bilat, confirmation by capnometr Patient Tolerated Procedure: well Intubation Complications: none (Patient had to be intubated twice ) ED Medical Decision Making - Lab Data Result diagrams: 02/07/17 04:20 02/07/17 04:20 - Medical Decision Making Cdx: Cardiac arrest Patient required IV epinephrine, IV atropine, IV bicarbonate Patient will require to be intubated. Critical care attestation.: If time is entered above; I have spent that time in minutes in the direct care of this critically ill patient, excluding procedure time. ED Disposition Clinical Impression: SIRS (systemic inflammatory response syndrome) Respiratory failure Qualifiers: Chronicity: acute Respiratory failure complication: hypoxia Qualified Code(s): J96.01 - Acute respiratory failure with hypoxia Disposition: OP ADMIT IP TO THIS HOSP Is pt being admited?: Yes Does the pt Need Aspirin: No Condition: Fair
--- NOTE | 2017-02-07 08:35 | Progress Note ---
Assessment and Plan Assessment and plan: Patient is 76 yo woman with a history of htn, oa, and dlp from [facility] who presented with AMS and admitted by Hospitalist Dr. Loo for Confusion yesterday 02/06/17. Overnight the following occurred: STEVE SOLOMON called [phone], Date: 02/07/[address] Sheth Cdx: Cardiac arrest, Patient required IV epinephrine, IV atropine, IV bicarbonate, I was called into patient's room patient started bradying down and recieved CPR [address] Gamez took over the code." per covering Hospitalist/Retail Service Representative, Dr. Dahiana Gamez: "Patient became bradycardic, atropine was given She then went into PDA and ACLS protocol was initiated. Patient was shocked twice for V. fib She had copious amount of hematemesis There was of the case are ROSC Obtain stat labs now Start protonic drip, patient will be intubated, IV fluid bolus Patient has persistent tachycardia, heart rate in the 190s Adenosine 6 and 12 was given which slowed her rate to 110 Her underlying rhythm is A. fib, Cardizem 20 mg IV was given Patient was also started on maintenance fluid of D5 half-normal Her hemoglobin came back less than 5, she will be changing shoes providing EKG was obtained and reviewed, new changes on EKG Check cardiac enzymes, consult cardiology Patient is currently acidotic, ABG was reviewed, bicarbonate drip was discontinued Gift 2 ounce by cough and restart bicarbonate drip Patient has been on Levothroid drip prior to the code, will add Philip-Synephrine INR greater than 2.5, transfuse FFP Patient is full code, family was made aware" I was called and discuss with next of kin, grandsonGabino [phone]. Patient has no spouse, has 2 daughters. She lives with daughter up until the fall/left hip fracture and hospitalization on 01/20/17 to 01/25/17. She had left hip arthroplasty by Dr. Alberto on 01/23/17 and went to [facility] on . She was sent on xarelto for dvt prophylaxis. She presented again to [facility] ED yesterday 02/06/17 with AMS and hypotension. She has a living will and she is full code per Gabino, but he reports that his mother and aunt (patient 2 daughters are legal POA) and he will notify them. Patient is in SVT, MAP 61, I gave 150mg iv amiodarone and starting iv amiodarone drip. Repeat hemoglobin went from 9.1 to 4.9. Blood transfusion pending. Severe acidosis, hco3 drip pending. Leti Schwartz sister, daughter Sandy FOREMAN (Gabino's mother), Vaishali other daughter. Another CODE BLUE CALLED at 0835. Dr. Bourgeois was at bedside and patient lost pulse, PEA. Dr. Bourgeois running code, I called grandson and made him aware. ACLS was successful. But patient is hypothermia, bear hugger being applied. grandson Gabino notified again. DX: -Cardiac arrest, unsure exactly the etiology that lead to the cardiac arrest -Acute encephalopathy, unsure of why she became confused, possibly hypotensive related, most likely she has GIB (BUN 103, normal on 01/24/17), which lead to hypotension, which lead to the confusion, severe acidosis, ARF/ATN, Multi System organ failure. now her WBC was 33.2, so she also could be septic which could have lead to all of this also, she was on empiric Levaquin at the [facility]. CXR just showed bilateral atelectasis and UA was negative. I don't know if she has diarrhea/C.diffe. -Shock, mutlifactorial: maxed out on 2 vasopressors, considering adding Vasopression -Severe Acidosis: bicarbonate drip -Acute combined Respiratory failure on MV -MSOF -ARF/aTN: improve bp -Acute Blood loss anemia: transfusion Full code CCT 45 minutes History Interval history: Patient seen and examined in ICU post Cardiac arrest. She is intubated, not sedated. Comatose. Hospitalist Physical - Physical exam Narrative exam: GEN: thin frail woman in acute respiratory distress with retraction and abnormal breathing on the mechanical ventilator Lungs: adequate air entry, diminished BS, faint late inspiratory crackles HEENT: pupils are not reacting Neck: supple no masses seen, right IJ TLC in place CVS: irregular irregular Abd: soft pbs, not tense or guarding Psy: comatose Neuro: no response, not following commands Msk: no spontaneous movement - Constitutional Vitals: Temp Pulse Resp BP Pulse Ox 97.6 F 166 H 19 60/37 97 02/06/17 17:43 02/07/17 07:49 02/07/17 06:00 02/07/17 07:49 02/06/17 17:43 General appearance: Present: severe distress Results - Labs CBC & Chem 7: 02/07/17 04:20 02/07/17 04:20 Labs: Laboratory Last Values WBC 29.9 K/mm3 (4.5-11.0) H 02/07/17 04:20 RBC 1.80 M/mm3 (3.65-5.03) L 02/07/17 04:20 Hgb 4.9 gm/dl (10.1-14.3) L* D 02/07/17 04:20 Hct 15.4 % (30.3-42.9) L* D 02/07/17 04:20 MCV 86 fl (79-97) 02/07/17 04:20 MCH 27 pg (28-32) L 02/07/17 04:20 MCHC 32 % (30-34) 02/07/17 04:20 RDW 16.5 % (13.2-15.2) H 02/07/17 04:20 Plt Count 154 K/mm3 (140-440) 02/07/17 04:20 Add Manual Diff Complete 02/07/17 04:20 Total Counted 100 02/07/17 04:20 Seg Neutrophils % Software Engineering Manager 02/06/17 10:07 Seg Neuts % (Manual) 71.0 % (40.0-70.0) H 02/07/17 04:20 Band Neutrophils % 10.0 % 02/07/17 04:20 Lymphocytes % (Manual) 12.0 % (13.4-35.0) L 02/07/17 04:20 Reactive Lymphs % (Man) 0 % 02/07/17 04:20 Monocytes % (Manual) 7.0 % (0.0-7.3) 02/07/17 04:20 Eosinophils % (Manual) 0 % (0.0-4.3) 02/07/17 04:20 Basophils % (Manual) 0 % (0.0-1.8) 02/07/17 04:20 Metamyelocytes % 0 % 02/07/17 04:20 Myelocytes % 0 % 02/07/17 04:20 Promyelocytes % 0 % 02/07/17 04:20 Blast Cells % 0 % 02/07/17 04:20 Nucleated RBC % 4.0 % (0.0-0.9) H 02/07/17 04:20 Seg Neutrophils # Man 21.2 K/mm3 (1.8-7.7) H 02/07/17 04:20 Band Neutrophils # 3.0 K/mm3 02/07/17 04:20 Lymphocytes # (Manual) 3.6 K/mm3 (1.2-5.4) 02/07/17 04:20 Abs React Lymphs (Man) 0.0 K/mm3 02/07/17 04:20 Monocytes # (Manual) 2.1 K/mm3 (0.0-0.8) H 02/07/17 04:20 Eosinophils # (Manual) 0.0 K/mm3 (0.0-0.4) 02/07/17 04:20 Basophils # (Manual) 0.0 K/mm3 (0.0-0.1) 02/07/17 04:20 Metamyelocytes # 0.0 K/mm3 02/07/17 04:20 Myelocytes # 0.0 K/mm3 02/07/17 04:20 Promyelocytes # 0.0 K/mm3 02/07/17 04:20 Blast Cells # 0.0 K/mm3 02/07/17 04:20 WBC Morphology Not Reportable 02/07/17 04:20 Hypersegmented Neuts Not Reportable 02/07/17 04:20 Hyposegmented Neuts Not Reportable 02/07/17 04:20 Hypogranular Neuts Not Reportable 02/07/17 04:20 Smudge Cells Not Reportable 02/07/17 04:20 Toxic Granulation Not Reportable 02/07/17 04:20 Toxic Vacuolation Not Reportable 02/07/17 04:20 Dohle Bodies Not Reportable 02/07/17 04:20 Pelger-Huet Anomaly Not Reportable 02/07/17 04:20 Ning Rods Not Reportable 02/07/17 04:20 Platelet Estimate Consistent w auto 02/07/17 04:20 Clumped Platelets Not Reportable 02/07/17 04:20 Plt Clumps, EDTA Not Reportable 02/07/17 04:20 Large Platelets Not Reportable 02/07/17 04:20 Giant Platelets Not Reportable 02/07/17 04:20 Platelet Satelliting Not Reportable 02/07/17 04:20 Plt Morphology Comment Not Reportable 02/07/17 04:20 RBC Morphology Normal 02/07/17 04:20 Dimorphic RBCs Not Reportable 02/07/17 04:20 Polychromasia Not Reportable 02/07/17 04:20 Hypochromasia Not Reportable 02/07/17 04:20 Poikilocytosis Not Reportable 02/07/17 04:20 Anisocytosis Not Reportable 02/07/17 04:20 Microcytosis Not Reportable 02/07/17 04:20 Macrocytosis Not Reportable 02/07/17 04:20 Spherocytes Not Reportable 02/07/17 04:20 Pappenheimer Bodies Not Reportable 02/07/17 04:20 Sickle Cells Not Reportable 02/07/17 04:20 Target Cells Not Reportable 02/07/17 04:20 Tear Drop Cells Not Reportable 02/07/17 04:20 Ovalocytes Not Reportable 02/07/17 04:20 Helmet Cells Not Reportable 02/07/17 04:20 Patel-[place] Bodies Not Reportable 02/07/17 04:20 [place] Rings Not Reportable 02/07/17 04:20 [place] Cells Not Reportable 02/07/17 04:20 Bite Cells Not Reportable 02/07/17 04:20 Crenated Cell Not Reportable 02/07/17 04:20 Elliptocytes Not Reportable 02/07/17 04:20 Acanthocytes (Spur) Not Reportable 02/07/17 04:20 Rouleaux Not Reportable 02/07/17 04:20 Hemoglobin C Crystals Not Reportable 02/07/17 04:20 Schistocytes Not Reportable 02/07/17 04:20 Malaria parasites Not Reportable 02/07/17 04:20 Dipesh Bodies Not Reportable 02/07/17 04:20 Hem Pathologist Commnt No 02/07/17 04:20 PT 27.4 Sec. (12.2-14.9) H 02/07/17 04:20 INR 2.53 (0.87-1.13) H 02/07/17 04:20 APTT 31.0 Sec. (24.2-36.6) 02/07/17 04:20 POC ABG pH 7.011 (7.35-7.45) L 02/07/17 05:41 POC ABG pCO2 53.8 (35-45) H 02/07/17 05:41 POC ABG pO2 251 (80-105) H 02/07/17 05:41 POC ABG HCO3 13.6 02/07/17 05:41 POC ABG Total CO2 15 02/07/17 05:41 POC ABG O2 Sat 100 02/07/17 05:41 POC ABG Base Excess -17 02/07/17 05:41 VBG pH 7.281 (7.320-7.420) L 02/06/17 10:07 FiO2 100 % 02/07/17 05:41 Sodium 169 mmol/L (137-145) H* D 02/07/17 04:20 Potassium 4.9 mmol/L (3.6-5.0) D 02/07/17 04:20 Chloride 119.4 mmol/L (98-107) H 02/07/17 04:20 Carbon Dioxide 32 mmol/L (22-30) H D 02/07/17 04:20 Anion Gap 23 mmol/L 02/07/17 04:20 BUN 68 mg/dL (7-17) H 02/07/17 04:20 Creatinine 2.4 mg/dL (0.7-1.2) H 02/07/17 04:20 Estimated GFR 24 ml/min 02/07/17 04:20 BUN/Creatinine Ratio 28.33 % 02/07/17 04:20 Glucose 99 mg/dL (65-100) 02/07/17 04:20 POC Glucose 89 (70-105) 02/06/17 18:20 Lactic Acid 5.00 mmol/L (0.7-2.0) H* 02/06/17 13:37 Calcium 6.4 mg/dL (8.4-10.2) L D 02/07/17 04:20 Magnesium 2.70 mg/dL (1.7-2.3) H 02/06/17 10:07 Total Bilirubin 0.20 mg/dL (0.1-1.2) 02/07/17 04:20 AST 162 units/L (5-40) H 02/07/17 04:20 ALT 46 units/L (7-56) 02/07/17 04:20 Alkaline Phosphatase 47 units/L (35-129) 02/07/17 04:20 Total Creatine Kinase 7016 units/L (30-135) H 02/07/17 04:20 CK-MB (CK-2) 162.9 ng/mL (0.0-4.0) H 02/07/17 04:20 CK-MB (CK-2) Rel Index 2.3 (0-4) 02/07/17 04:20 Troponin T 0.075 ng/mL (0.00-0.029) H 02/07/17 04:20 Total Protein 3.1 g/dL (6.3-8.2) L D 02/07/17 04:20 Albumin 1.2 g/dL (3.9-5) L 02/07/17 04:20 Albumin/Globulin Ratio 0.6 % 02/07/17 04:20 Triglycerides 99 mg/dL (2-149) 02/06/17 10:07 Cholesterol 76 mg/dL (50-199) 02/06/17 10:07 LDL Cholesterol Direct 45 mg/dL (50-130) L 02/06/17 10:07 HDL Cholesterol 12 mg/dL (40-59) L 02/06/17 10:07 Cholesterol/HDL Ratio 6.33 % 02/06/17 10:07 Urine Color Yellow (Yellow) 02/06/17 11:34 Urine Turbidity Clear (Clear) 02/06/17 11:34 Urine pH 5.0 (5.0-7.0) 02/06/17 11:34 Ur Specific [place] 1.015 (1.003-1.030) 02/06/17 11:34 Urine Protein <15 mg/dl mg/dL (Negative) 02/06/17 11:34 Urine Glucose (UA) Neg mg/dL (Negative) 02/06/17 11:34 Urine Ketones Neg mg/dL (Negative) 02/06/17 11:34 Urine Blood Mod (Negative) 02/06/17 11:34 Urine Nitrite Neg (Negative) 02/06/17 11:34 Urine Bilirubin Neg (Negative) 02/06/17 11:34 Urine Urobilinogen < 2.0 mg/dL (<2.0) 02/06/17 11:34 Ur Leukocyte Esterase Neg (Negative) 02/06/17 11:34 Urine WBC (Auto) 2.0 /HPF (0.0-6.0) 02/06/17 11:34 Urine RBC (Auto) < 1.0 /HPF (0.0-6.0) 02/06/17 11:34 U Epithel Cells (Auto) < 1.0 /HPF (0-13.0) 02/06/17 11:34 Urine Bacteria (Auto) 1+ /HPF (Negative) 02/06/17 11:34 Hyaline Casts 1 /LPF 02/06/17 11:34 Blood Type O POSITIVE 02/06/17 13:37 Antibody Screen Negative 02/06/17 13:37 Crossmatch See Detail 02/06/17 13:37
[2017-02-07] MEDS ORDERED: CORDARONE 150 MG in D5W 97 ML IV ONE (09:00)
[2017-02-07] MEDS ORDERED: CORDARONE 900 MG in D5W 482 ML IV SCH (09:00)
[2017-02-07] MEDS ORDERED: NACL 0.9% 500 ML 500 ML ONE ×2 (09:16→15:52)
[2017-02-07] MEDS: Vasostrict 20 UNIT in NACL 0.9% 100 ML IV SCH ×2 (10:06→18:44)
--- NOTE | 2017-02-07 10:07 | Event Note ---
Date: 02/07/17 Came to evaluate patient. No pulse palpated and what appears to be sinus tach on the monitor. CPR started. Patient received 3 epi's and bicarb with ROSC. No family currently at bedside but IMS spoke with grandson. Patient remains full code. Vasopressin is now added at max dosing and she is maxed on levophed and neosynephrine. Bicarb is running at 200 and FSBS was 33 post arrest. Overall prognosis is extremely poor. CCT 31 minutes.
--- NOTE | 2017-02-07 10:21 | Consultation ---
History of Present Illness Consult date: 02/07/17 Requesting physician: LORI CASAREZ Reason for consult: other (ICU admission) History of present illness: 76 y/o female with originally admitted with altered mental status from group home. Patient was recently admitted secondary to fall. Was in [facility]. Had altered mental status so was brought in. Coded this am, intubated and then coded a second time. Past History Past Medical History: arthritis, hypertension, hyperlipidemia Past Surgical History: , total hip replacement Social history: . denies: smoking, alcohol abuse, prescription drug abuse, IV drug use Family history: CAD, hypertension Medications and Allergies Allergies Allergy/AdvReac Type Severity Reaction Status Date / Time Sulfa (Sulfonamide Allergy Mild Itching Verified 01/20/17 21:31 Antibiotics) Home Medications Medication Instructions Recorded Confirmed Last Taken Type Atenolol [Tenormin] 100 mg PO DAILY 01/20/17 02/06/17 01/19/17 History Hydrochlorothiazide [HCTZ] 25 mg PO QDAY 01/20/17 02/06/17 01/19/17 History Lisinopril [Zestril TAB] 40 mg PO QDAY 01/20/17 02/06/17 01/19/17 History Simvastatin [Zocor TAB] 10 mg PO QHS 01/20/17 02/06/17 01/19/17 History amLODIPine [Norvasc] 5 mg PO DAILY 01/20/17 02/06/17 01/19/17 History Apixaban [Eliquis] 2.5 mg PO BID 35 Days 01/24/17 02/06/17 Unknown Rx Levofloxacin [Levaquin TAB] 750 mg PO DAILY #10 tablet 01/25/17 02/06/17 Unknown Rx Active Meds: Active Medications Bisacodyl (Dulcolax) 10 mg MI QDAY PRN PRN Reason: constipation unrelieved by MOM Dextrose (D50w (25gm)) 50 gm IV PRN PRN PRN Reason: Hypoglycemia Hydrophilic Ointment (Vaseline Lip Therapy) 1 applic TP Q2HR PRN PRN Reason: Dry Lips Piperacillin Sod/Tazobactam Sod (Zosyn/Ns 2.25 Gm/50ml) 2.25 gm in 50 mls @ 100 mls/hr IV Q8HR JOVON Last Admin: 02/07/17 06:14 Dose: 100 mls/hr Dopamine HCl/Dextrose (Intropin Drip 800 Mg/D5w 250 Ml) 800 mg in 250 mls @ 1.845 mls/hr IV TITR JOVON; 2 MCG/KG/MIN PRN Reason: Protocol Last Titration: 02/07/17 02:39 Dose: 8 mcg/kg/min, 7.38 mls/hr Norepinephrine (Levophed Drip 4 Mg/Ns 250 Ml) 4 mg in 250 mls @ 7.5 mls/hr IV TITR JOVON; 2 MCG/MIN PRN Reason: Protocol Last Admin: 02/07/17 09:00 Dose: 30 mcg/min, 112.5 mls/hr Pantoprazole Sodium 80 mg/ (Sodium Chloride) 100 mls @ 10 mls/hr IV DIRECT JOVON Phenylephrine HCl 100 mg/ (Sodium Chloride) 100 mls @ 3 mls/hr IV TITR JOVON; 50 MCG/MIN PRN Reason: Protocol Last Admin: 02/07/17 10:04 Dose: 400 mcg/min, 24 mls/hr Dextrose (D5w) 1,000 mls @ 125 mls/hr IV DIRECT JOVON Vasopressin 20 unit/ Sodium (Chloride) 101 mls @ 9.09 mls/hr IV TITR JOVON; 0.03 UNITS/MIN PRN Reason: Protocol Last Admin: 02/07/17 10:06 Dose: 0.03 units/min, 9.09 mls/hr Sodium Chloride (Nacl 0.9% 1000 Ml) 1,000 mls @ 999 mls/hr IV BOLUS ONE Stop: 02/07/17 12:00 Last Admin: 02/07/17 10:09 Dose: 999 mls/hr Multi-Ingred Cream/Lotion/Oil/Oint (Artificial Tears Ophth Oint) 1 applic OU Q4HR PRN PRN Reason: Dry Eye(s) Vancomycin HCl (Vancomycin Pharmacy To Dose) 1 each IV PKCONSULT JOVON PRN Reason: Protocol Review of Systems ROS unobtainable: due to endotracheal tube, due to mental status Physical Examination Vital signs: Vital Signs Temp Pulse Resp BP Pulse Ox 97.5 F L 110 H 38 H 86/51 100 02/06/17 09:27 02/06/17 09:27 02/06/17 09:27 02/06/17 09:27 02/06/17 09:27 General appearance: comatose Eyes: icteric ENT: other (orally intubated) Neck: supple Ascultation: Bilateral: diminished breath sounds Cardiovascular: other (tachycardia, SVT) Gastrointestinal: hypoactive bowel sounds Results - Laboratory Findings CBC and BMP: 02/07/17 04:20 02/07/17 04:20 ABG POC ABG pH 7.011 (7.35-7.45) L 02/07/17 05:41 POC ABG pCO2 53.8 (35-45) H 02/07/17 05:41 POC ABG pO2 251 (80-105) H 02/07/17 05:41 POC ABG HCO3 13.6 02/07/17 05:41 POC ABG Total CO2 15 02/07/17 05:41 POC ABG O2 Sat 100 02/07/17 05:41 PT/INR, D-dimer PT 27.4 Sec. (12.2-14.9) H 02/07/17 04:20 INR 2.53 (0.87-1.13) H 02/07/17 04:20 Abnormal lab findings: Abnormal Labs 02/06/17 02/06/17 02/06/17 13:37 13:37 13:57 WBC RBC Hgb Hct MCH RDW Seg Neuts % (Manual) Lymphocytes % (Manual) Nucleated RBC % Seg Neutrophils # Man Monocytes # (Manual) PT INR POC ABG pH POC ABG pCO2 POC ABG pO2 Sodium Chloride Carbon Dioxide BUN Creatinine POC Glucose 69 L Lactic Acid 5.00 H* Calcium AST Total Creatine Kinase CK-MB (CK-2) Troponin T Total Protein Albumin Crossmatch See Detail 02/07/17 02/07/17 02/07/17 04:20 04:20 04:20 WBC 29.9 H RBC 1.80 L Hgb 4.9 L* D Hct 15.4 L* D MCH 27 L RDW 16.5 H Seg Neuts % (Manual) 71.0 H Lymphocytes % (Manual) 12.0 L Nucleated RBC % 4.0 H Seg Neutrophils # Man 21.2 H Monocytes # (Manual) 2.1 H PT 27.4 H INR 2.53 H POC ABG pH POC ABG pCO2 POC ABG pO2 Sodium 169 H* D Chloride 119.4 H Carbon Dioxide 32 H D BUN 68 H Creatinine 2.4 H POC Glucose Lactic Acid Calcium 6.4 L D AST 162 H Total Creatine Kinase CK-MB (CK-2) Troponin T Total Protein 3.1 L D Albumin 1.2 L Crossmatch 02/07/17 02/07/17 02/07/17 04:20 05:41 08:50 WBC RBC Hgb Hct MCH RDW Seg Neuts % (Manual) Lymphocytes % (Manual) Nucleated RBC % Seg Neutrophils # Man Monocytes # (Manual) PT INR POC ABG pH 7.011 L POC ABG pCO2 53.8 H POC ABG pO2 251 H Sodium Chloride Carbon Dioxide BUN Creatinine POC Glucose < 40 L Lactic Acid Calcium AST Total Creatine Kinase 7016 H CK-MB (CK-2) 162.9 H Troponin T 0.075 H Total Protein Albumin Crossmatch - Diagnostic Findings Chest x-ray: image reviewed Assessment and Plan 76 y/o female status post cardiac arrest (PEA), most likely from acute blood loss anemia, exact etiology of bleed unknown. 1. Patient maxed on 3 vasopressors 2. Transfusion ordered for 4 units has been given 2, awaiting the other two to be transfused 3. Continue vent support 4. Repeat ABG 5. Follow up Repeat H/H and then perform [id number] 6. Await family arrival to discuss goals of care. 7. Current prognosis is very poor, not on any sedation and maxed on several vasopressors with acute blood loss anemia CCT 31 minutes.
--- NOTE | 2017-02-07 10:43 | Gastroenterology Consultation ---
<RICHA SAAVEDRA - Last Filed: 02/07/17 10:47> History of Present Illness - Reason for Consult Consult date: 02/07/17 hematemesis Requesting physician: GIN LEO - History of Present Illness Patient is a 76 y/o female who recently underwent Left hip surgery and was brought to the ER by EMS from [facility] due to AMS. Patient was found to be hypotensive and is being treated for septic shock. She has had 2 cardiac arrest events since admission. During the first code, she was noted to have hematemesis. Pt was on anticoagulation therapy with Xarelto at [facility]. INR is >2.5, HGB <5 with 2nd unit of PRBCs transfusing now and FFP transfusion pending. NG tube to LIS is noted to have scant amount of Coffee-ground emesis. Stool in diaper is light brown. She is currently intubated and comatose, on PPI gtt, levophed, kelly-synephrine, and vasopressin. Prognosis is poor. Hospitalist has spoken with family about code status, however at this time she is still a full code. No hx of liver disease per chart review. Past History Past Medical History: arthritis, hypertension, hyperlipidemia Past Surgical History: , total hip replacement Social history: . denies: smoking, alcohol abuse, prescription drug abuse, IV drug use Family history: CAD, hypertension Medications and Allergies Allergies Allergy/AdvReac Type Severity Reaction Status Date / Time Sulfa (Sulfonamide Allergy Mild Itching Verified 01/20/17 21:31 Antibiotics) Home Medications Medication Instructions Recorded Confirmed Last Taken Type Atenolol [Tenormin] 100 mg PO DAILY 01/20/17 02/06/17 01/19/17 History Hydrochlorothiazide [HCTZ] 25 mg PO QDAY 01/20/17 02/06/17 01/19/17 History Lisinopril [Zestril TAB] 40 mg PO QDAY 01/20/17 02/06/17 01/19/17 History Simvastatin [Zocor TAB] 10 mg PO QHS 01/20/17 02/06/17 01/19/17 History amLODIPine [Norvasc] 5 mg PO DAILY 01/20/17 02/06/17 01/19/17 History Apixaban [Eliquis] 2.5 mg PO BID 35 Days 01/24/17 02/06/17 Unknown Rx Levofloxacin [Levaquin TAB] 750 mg PO DAILY #10 tablet 01/25/17 02/06/17 Unknown Rx Active Meds: Active Medications Bisacodyl (Dulcolax) 10 mg MT QDAY PRN PRN Reason: constipation unrelieved by MOM Dextrose (D50w (25gm)) 50 gm IV PRN PRN PRN Reason: Hypoglycemia Hydrophilic Ointment (Vaseline Lip Therapy) 1 applic TP Q2HR PRN PRN Reason: Dry Lips Piperacillin Sod/Tazobactam Sod (Zosyn/Ns 2.25 Gm/50ml) 2.25 gm in 50 mls @ 100 mls/hr IV Q8HR JOVON Last Admin: 02/07/17 06:14 Dose: 100 mls/hr Dopamine HCl/Dextrose (Intropin Drip 800 Mg/D5w 250 Ml) 800 mg in 250 mls @ 1.845 mls/hr IV TITR JOVON; 2 MCG/KG/MIN PRN Reason: Protocol Last Titration: 02/07/17 02:39 Dose: 8 mcg/kg/min, 7.38 mls/hr Norepinephrine (Levophed Drip 4 Mg/Ns 250 Ml) 4 mg in 250 mls @ 7.5 mls/hr IV TITR JOVON; 2 MCG/MIN PRN Reason: Protocol Last Admin: 02/07/17 10:28 Dose: 30 mcg/min, 112.5 mls/hr Pantoprazole Sodium 80 mg/ (Sodium Chloride) 100 mls @ 10 mls/hr IV DIRECT JOVON Phenylephrine HCl 100 mg/ (Sodium Chloride) 100 mls @ 3 mls/hr IV TITR JOVON; 50 MCG/MIN PRN Reason: Protocol Last Admin: 02/07/17 10:04 Dose: 400 mcg/min, 24 mls/hr Dextrose (D5w) 1,000 mls @ 125 mls/hr IV DIRECT JOVON Vasopressin 20 unit/ Sodium (Chloride) 101 mls @ 9.09 mls/hr IV TITR JOVON; 0.03 UNITS/MIN PRN Reason: Protocol Last Admin: 02/07/17 10:06 Dose: 0.03 units/min, 9.09 mls/hr Sodium Chloride (Nacl 0.9% 1000 Ml) 1,000 mls @ 999 mls/hr IV BOLUS ONE Stop: 02/07/17 12:00 Last Admin: 02/07/17 10:09 Dose: 999 mls/hr Multi-Ingred Cream/Lotion/Oil/Oint (Artificial Tears Ophth Oint) 1 applic OU Q4HR PRN PRN Reason: Dry Eye(s) Vancomycin HCl (Vancomycin Pharmacy To Dose) 1 each IV PKCONSULT JOVON PRN Reason: Protocol Review of Systems - Review of Systems ROS unobtainable: due to endotracheal tube, due to mental status Exam - Constitutional Vital Signs: Temp Pulse Resp BP Pulse Ox 97.6 F 102 H 26 H 94/59 97 02/06/17 17:43 02/07/17 09:51 02/07/17 09:51 02/07/17 09:51 02/06/17 17:43 General appearance: other (intubated, comatose) - Respiratory Respiratory: bilateral: diminished - Cardiovascular Rhythm: other (tachycardia) Heart Sounds: Present: S1 & S2 Extremities: No edema - Gastrointestinal General gastrointestinal: Present: soft, distended, normal bowel sounds - Integumentary Integumentary: Present: warm, dry - Labs CBC & Chem 7: 02/07/17 04:20 02/07/17 04:20 Lab Results: Laboratory Results - last 24 hr 02/06/17 02/06/17 02/06/17 13:37 13:37 13:57 WBC RBC Hgb Hct MCV MCH MCHC RDW Plt Count Add Manual Diff Total Counted Seg Neuts % (Manual) Band Neutrophils % Lymphocytes % (Manual) Reactive Lymphs % (Man) Monocytes % (Manual) Eosinophils % (Manual) Basophils % (Manual) Metamyelocytes % Myelocytes % Promyelocytes % Blast Cells % Nucleated RBC % Seg Neutrophils # Man Band Neutrophils # Lymphocytes # (Manual) Abs React Lymphs (Man) Monocytes # (Manual) Eosinophils # (Manual) Basophils # (Manual) Metamyelocytes # Myelocytes # Promyelocytes # Blast Cells # WBC Morphology Hypersegmented Neuts Hyposegmented Neuts Hypogranular Neuts Smudge Cells Toxic Granulation Toxic Vacuolation Dohle Bodies Pelger-Huet Anomaly Ning Rods Platelet Estimate Clumped Platelets Plt Clumps, EDTA Large Platelets Giant Platelets Platelet Satelliting Plt Morphology Comment RBC Morphology Dimorphic RBCs Polychromasia Hypochromasia Poikilocytosis Anisocytosis Microcytosis Macrocytosis Spherocytes Pappenheimer Bodies Sickle Cells Target Cells Tear Drop Cells Ovalocytes Helmet Cells Patel-Luxora Bodies [place] Rings Chelle Cells Bite Cells Crenated Cell Elliptocytes Acanthocytes (Spur) Rouleaux Hemoglobin C Crystals Schistocytes Malaria parasites Dipesh Bodies Hem Pathologist Commnt PT INR APTT POC ABG pH POC ABG pCO2 POC ABG pO2 POC ABG HCO3 POC ABG Total CO2 POC ABG O2 Sat POC ABG Base Excess FiO2 Sodium Potassium Chloride Carbon Dioxide Anion Gap BUN Creatinine Estimated GFR BUN/Creatinine Ratio Glucose POC Glucose 69 L Lactic Acid 5.00 H* Calcium Total Bilirubin AST ALT Alkaline Phosphatase Total Creatine Kinase CK-MB (CK-2) CK-MB (CK-2) Rel Index Troponin T Total Protein Albumin Albumin/Globulin Ratio Blood Type O POSITIVE Antibody Screen Negative Crossmatch See Detail 02/06/17 02/07/17 02/07/17 18:20 04:20 04:20 WBC 29.9 H RBC 1.80 L Hgb 4.9 L* D Hct 15.4 L* D MCV 86 MCH 27 L MCHC 32 RDW 16.5 H Plt Count 154 Add Manual Diff Complete Total Counted 100 Seg Neuts % (Manual) 71.0 H Band Neutrophils % 10.0 Lymphocytes % (Manual) 12.0 L Reactive Lymphs % (Man) 0 Monocytes % (Manual) 7.0 Eosinophils % (Manual) 0 Basophils % (Manual) 0 Metamyelocytes % 0 Myelocytes % 0 Promyelocytes % 0 Blast Cells % 0 Nucleated RBC % 4.0 H Seg Neutrophils # Man 21.2 H Band Neutrophils # 3.0 Lymphocytes # (Manual) 3.6 Abs React Lymphs (Man) 0.0 Monocytes # (Manual) 2.1 H Eosinophils # (Manual) 0.0 Basophils # (Manual) 0.0 Metamyelocytes # 0.0 Myelocytes # 0.0 Promyelocytes # 0.0 Blast Cells # 0.0 WBC Morphology Not Reportable Hypersegmented Neuts Not Reportable Hyposegmented Neuts Not Reportable Hypogranular Neuts Not Reportable Smudge Cells Not Reportable Toxic Granulation Not Reportable Toxic Vacuolation Not Reportable Dohle Bodies Not Reportable Pelger-Huet Anomaly Not Reportable Ning Rods Not Reportable Platelet Estimate Consistent w auto Clumped Platelets Not Reportable Plt Clumps, EDTA Not Reportable Large Platelets Not Reportable Giant Platelets Not Reportable Platelet Satelliting Not Reportable Plt Morphology Comment Not Reportable RBC Morphology Normal Dimorphic RBCs Not Reportable Polychromasia Not Reportable Hypochromasia Not Reportable Poikilocytosis Not Reportable Anisocytosis Not Reportable Microcytosis Not Reportable Macrocytosis Not Reportable Spherocytes Not Reportable Pappenheimer Bodies Not Reportable Sickle Cells Not Reportable Target Cells Not Reportable Tear Drop Cells Not Reportable Ovalocytes Not Reportable Helmet Cells Not Reportable Patel-Luxora Bodies Not Reportable [place] Rings Not Reportable Chelle Cells Not Reportable Bite Cells Not Reportable Crenated Cell Not Reportable Elliptocytes Not Reportable Acanthocytes (Spur) Not Reportable Rouleaux Not Reportable Hemoglobin C Crystals Not Reportable Schistocytes Not Reportable Malaria parasites Not Reportable Dipesh Bodies Not Reportable Hem Pathologist Commnt No PT 27.4 H INR 2.53 H APTT 31.0 POC ABG pH POC ABG pCO2 POC ABG pO2 POC ABG HCO3 POC ABG Total CO2 POC ABG O2 Sat POC ABG Base Excess FiO2 Sodium Potassium Chloride Carbon Dioxide Anion Gap BUN Creatinine Estimated GFR BUN/Creatinine Ratio Glucose POC Glucose 89 Lactic Acid Calcium Total Bilirubin AST ALT Alkaline Phosphatase Total Creatine Kinase CK-MB (CK-2) CK-MB (CK-2) Rel Index Troponin T Total Protein Albumin Albumin/Globulin Ratio Blood Type Antibody Screen Crossmatch 02/07/17 02/07/17 02/07/17 04:20 04:20 05:41 WBC RBC Hgb Hct MCV MCH MCHC RDW Plt Count Add Manual Diff Total Counted Seg Neuts % (Manual) Band Neutrophils % Lymphocytes % (Manual) Reactive Lymphs % (Man) Monocytes % (Manual) Eosinophils % (Manual) Basophils % (Manual) Metamyelocytes % Myelocytes % Promyelocytes % Blast Cells % Nucleated RBC % Seg Neutrophils # Man Band Neutrophils # Lymphocytes # (Manual) Abs React Lymphs (Man) Monocytes # (Manual) Eosinophils # (Manual) Basophils # (Manual) Metamyelocytes # Myelocytes # Promyelocytes # Blast Cells # WBC Morphology Hypersegmented Neuts Hyposegmented Neuts Hypogranular Neuts Smudge Cells Toxic Granulation Toxic Vacuolation Dohle Bodies Pelger-Huet Anomaly Ning Rods Platelet Estimate Clumped Platelets Plt Clumps, EDTA Large Platelets Giant Platelets Platelet Satelliting Plt Morphology Comment RBC Morphology Dimorphic RBCs Polychromasia Hypochromasia Poikilocytosis Anisocytosis Microcytosis Macrocytosis Spherocytes Pappenheimer Bodies Sickle Cells Target Cells Tear Drop Cells Ovalocytes Helmet Cells Patel-Luxora Bodies [place] Rings Hubbard Cells Bite Cells Crenated Cell Elliptocytes Acanthocytes (Spur) Rouleaux Hemoglobin C Crystals Schistocytes Malaria parasites Dipesh Bodies Hem Pathologist Commnt PT INR APTT POC ABG pH 7.011 L POC ABG pCO2 53.8 H POC ABG pO2 251 H POC ABG HCO3 13.6 POC ABG Total CO2 15 POC ABG O2 Sat 100 POC ABG Base Excess -17 FiO2 100 Sodium 169 H* D Potassium 4.9 D Chloride 119.4 H Carbon Dioxide 32 H D Anion Gap 23 BUN 68 H Creatinine 2.4 H Estimated GFR 24 BUN/Creatinine Ratio 28.33 Glucose 99 POC Glucose Lactic Acid Calcium 6.4 L D Total Bilirubin 0.20 AST 162 H ALT 46 Alkaline Phosphatase 47 Total Creatine Kinase 7016 H CK-MB (CK-2) 162.9 H CK-MB (CK-2) Rel Index 2.3 Troponin T 0.075 H Total Protein 3.1 L D Albumin 1.2 L Albumin/Globulin Ratio 0.6 Blood Type Antibody Screen Crossmatch 02/07/17 08:50 WBC RBC Hgb Hct MCV MCH MCHC RDW Plt Count Add Manual Diff Total Counted Seg Neuts % (Manual) Band Neutrophils % Lymphocytes % (Manual) Reactive Lymphs % (Man) Monocytes % (Manual) Eosinophils % (Manual) Basophils % (Manual) Metamyelocytes % Myelocytes % Promyelocytes % Blast Cells % Nucleated RBC % Seg Neutrophils # Man Band Neutrophils # Lymphocytes # (Manual) Abs React Lymphs (Man) Monocytes # (Manual) Eosinophils # (Manual) Basophils # (Manual) Metamyelocytes # Myelocytes # Promyelocytes # Blast Cells # WBC Morphology Hypersegmented Neuts Hyposegmented Neuts Hypogranular Neuts Smudge Cells Toxic Granulation Toxic Vacuolation Dohle Bodies Pelger-Huet Anomaly Ning Rods Platelet Estimate Clumped Platelets Plt Clumps, EDTA Large Platelets Giant Platelets Platelet Satelliting Plt Morphology Comment RBC Morphology Dimorphic RBCs Polychromasia Hypochromasia Poikilocytosis Anisocytosis Microcytosis Macrocytosis Spherocytes Pappenheimer Bodies Sickle Cells Target Cells Tear Drop Cells Ovalocytes Helmet Cells Patel-Luxora Bodies [place] Rings Hubbard Cells Bite Cells Crenated Cell Elliptocytes Acanthocytes (Spur) Rouleaux Hemoglobin C Crystals Schistocytes Malaria parasites Dipesh Bodies Hem Pathologist Commnt PT INR APTT POC ABG pH POC ABG pCO2 POC ABG pO2 POC ABG HCO3 POC ABG Total CO2 POC ABG O2 Sat POC ABG Base Excess FiO2 Sodium Potassium Chloride Carbon Dioxide Anion Gap BUN Creatinine Estimated GFR BUN/Creatinine Ratio Glucose POC Glucose < 40 L Lactic Acid Calcium Total Bilirubin AST ALT Alkaline Phosphatase Total Creatine Kinase CK-MB (CK-2) CK-MB (CK-2) Rel Index Troponin T Total Protein Albumin Albumin/Globulin Ratio Blood Type Antibody Screen Crossmatch Assessment and Plan 1.hematemesis 2.septic shock 3.acute encephalopathy 4.actue respiratory failure 5.acute blood loss anemia -HGB 4.9- 2nd unit of PRBCs transfusing now -INR 2.53- FFP transfusion pending -continue to monitor H&H and transfuse as needed -hold blood thinning medications -keep NPO -continue PPI gtt -pt is currently intubated, comatose and on levophed, kelly-synephrine, and vasopression -2 cardiac arrest events since admission -prognosis is poor -NG tube to LIS with scan amount of coffee-ground emesis, stool in diaper is light brown -no recommendations at this time for an endoscopic evaluation, will consider EGD once pt is medically stable, unless overt bleeding develops -will follow <PRASHANT NOVOA R - Last Filed: 02/07/17 13:54> Medications and Allergies Active Meds: Active Medications Bisacodyl (Dulcolax) 10 mg MT QDAY PRN PRN Reason: constipation unrelieved by MOM Dextrose (D50w (25gm)) 50 gm IV PRN PRN PRN Reason: Hypoglycemia Last Admin: 02/07/17 11:24 Dose: 50 gm Hydrophilic Ointment (Vaseline Lip Therapy) 1 applic TP Q2HR PRN PRN Reason: Dry Lips Piperacillin Sod/Tazobactam Sod (Zosyn/Ns 2.25 Gm/50ml) 2.25 gm in 50 mls @ 100 mls/hr IV Q8HR JOVON Last Admin: 02/07/17 06:14 Dose: 100 mls/hr Dopamine HCl/Dextrose (Intropin Drip 800 Mg/D5w 250 Ml) 800 mg in 250 mls @ 1.845 mls/hr IV TITR JOVON; 2 MCG/KG/MIN PRN Reason: Protocol Last Titration: 02/07/17 02:39 Dose: 8 mcg/kg/min, 7.38 mls/hr Norepinephrine (Levophed Drip 4 Mg/Ns 250 Ml) 4 mg in 250 mls @ 7.5 mls/hr IV TITR JOVON; 2 MCG/MIN PRN Reason: Protocol Last Admin: 02/07/17 10:28 Dose: 30 mcg/min, 112.5 mls/hr Pantoprazole Sodium 80 mg/ (Sodium Chloride) 100 mls @ 10 mls/hr IV DIRECT JOVON Phenylephrine HCl 100 mg/ (Sodium Chloride) 100 mls @ 3 mls/hr IV TITR JOVON; 50 MCG/MIN PRN Reason: Protocol Last Admin: 02/07/17 10:04 Dose: 400 mcg/min, 24 mls/hr Dextrose (D5w) 1,000 mls @ 125 mls/hr IV DIRECT JOVON Vasopressin 20 unit/ Sodium (Chloride) 101 mls @ 9.09 mls/hr IV TITR JOVON; 0.03 UNITS/MIN PRN Reason: Protocol Last Admin: 02/07/17 10:06 Dose: 0.03 units/min, 9.09 mls/hr Multi-Ingred Cream/Lotion/Oil/Oint (Artificial Tears Ophth Oint) 1 applic OU Q4HR PRN PRN Reason: Dry Eye(s) Vancomycin HCl (Vancomycin Pharmacy To Dose) 1 each IV PKCONSULT JOVON PRN Reason: Protocol Exam - Constitutional Vital Signs: Temp Pulse Resp BP Pulse Ox 92.3 F L 144 H 24 129/85 97 02/07/17 13:00 02/07/17 13:00 02/07/17 13:00 02/07/17 13:00 02/06/17 17:43 - Labs CBC & Chem 7: 02/07/17 04:20 02/07/17 04:20 Lab Results: Laboratory Results - last 24 hr 02/06/17 02/06/17 02/06/17 13:37 13:37 13:57 WBC RBC Hgb Hct MCV MCH MCHC RDW Plt Count Add Manual Diff Total Counted Seg Neuts % (Manual) Band Neutrophils % Lymphocytes % (Manual) Reactive Lymphs % (Man) Monocytes % (Manual) Eosinophils % (Manual) Basophils % (Manual) Metamyelocytes % Myelocytes % Promyelocytes % Blast Cells % Nucleated RBC % Seg Neutrophils # Man Band Neutrophils # Lymphocytes # (Manual) Abs React Lymphs (Man) Monocytes # (Manual) Eosinophils # (Manual) Basophils # (Manual) Metamyelocytes # Myelocytes # Promyelocytes # Blast Cells # WBC Morphology Hypersegmented Neuts Hyposegmented Neuts Hypogranular Neuts Smudge Cells Toxic Granulation Toxic Vacuolation Dohle Bodies Pelger-Huet Anomaly Ning Rods Platelet Estimate Clumped Platelets Plt Clumps, EDTA Large Platelets Giant Platelets Platelet Satelliting Plt Morphology Comment RBC Morphology Dimorphic RBCs Polychromasia Hypochromasia Poikilocytosis Anisocytosis Microcytosis Macrocytosis Spherocytes Pappenheimer Bodies Sickle Cells Target Cells Tear Drop Cells Ovalocytes Helmet Cells Patel-Luxora Bodies [place] Rings Chelle Cells Bite Cells Crenated Cell Elliptocytes Acanthocytes (Spur) Rouleaux Hemoglobin C Crystals Schistocytes Malaria parasites Dipesh Bodies Hem Pathologist Commnt PT INR APTT POC ABG pH POC ABG pCO2 POC ABG pO2 POC ABG HCO3 POC ABG Total CO2 POC ABG O2 Sat POC ABG Base Excess FiO2 Sodium Potassium Chloride Carbon Dioxide Anion Gap BUN Creatinine Estimated GFR BUN/Creatinine Ratio Glucose POC Glucose 69 L Lactic Acid 5.00 H* Calcium Total Bilirubin AST ALT Alkaline Phosphatase Total Creatine Kinase CK-MB (CK-2) CK-MB (CK-2) Rel Index Troponin T Total Protein Albumin Albumin/Globulin Ratio Blood Type O POSITIVE Antibody Screen Negative Crossmatch See Detail 02/06/17 02/07/17 02/07/17 18:20 04:20 04:20 WBC 29.9 H RBC 1.80 L Hgb 4.9 L* D Hct 15.4 L* D MCV 86 MCH 27 L MCHC 32 RDW 16.5 H Plt Count 154 Add Manual Diff Complete Total Counted 100 Seg Neuts % (Manual) 71.0 H Band Neutrophils % 10.0 Lymphocytes % (Manual) 12.0 L Reactive Lymphs % (Man) 0 Monocytes % (Manual) 7.0 Eosinophils % (Manual) 0 Basophils % (Manual) 0 Metamyelocytes % 0 Myelocytes % 0 Promyelocytes % 0 Blast Cells % 0 Nucleated RBC % 4.0 H Seg Neutrophils # Man 21.2 H Band Neutrophils # 3.0 Lymphocytes # (Manual) 3.6 Abs React Lymphs (Man) 0.0 Monocytes # (Manual) 2.1 H Eosinophils # (Manual) 0.0 Basophils # (Manual) 0.0 Metamyelocytes # 0.0 Myelocytes # 0.0 Promyelocytes # 0.0 Blast Cells # 0.0 WBC Morphology Not Reportable Hypersegmented Neuts Not Reportable Hyposegmented Neuts Not Reportable Hypogranular Neuts Not Reportable Smudge Cells Not Reportable Toxic Granulation Not Reportable Toxic Vacuolation Not Reportable Dohle Bodies Not Reportable Pelger-Huet Anomaly Not Reportable Ning Rods Not Reportable Platelet Estimate Consistent w auto Clumped Platelets Not Reportable Plt Clumps, EDTA Not Reportable Large Platelets Not Reportable Giant Platelets Not Reportable Platelet Satelliting Not Reportable Plt Morphology Comment Not Reportable RBC Morphology Normal Dimorphic RBCs Not Reportable Polychromasia Not Reportable Hypochromasia Not Reportable Poikilocytosis Not Reportable Anisocytosis Not Reportable Microcytosis Not Reportable Macrocytosis Not Reportable Spherocytes Not Reportable Pappenheimer Bodies Not Reportable Sickle Cells Not Reportable Target Cells Not Reportable Tear Drop Cells Not Reportable Ovalocytes Not Reportable Helmet Cells Not Reportable Patel-Luxora Bodies Not Reportable [place] Rings Not Reportable Chelle Cells Not Reportable Bite Cells Not Reportable Crenated Cell Not Reportable Elliptocytes Not Reportable Acanthocytes (Spur) Not Reportable Rouleaux Not Reportable Hemoglobin C Crystals Not Reportable Schistocytes Not Reportable Malaria parasites Not Reportable Dipesh Bodies Not Reportable Hem Pathologist Commnt No PT 27.4 H INR 2.53 H APTT 31.0 POC ABG pH POC ABG pCO2 POC ABG pO2 POC ABG HCO3 POC ABG Total CO2 POC ABG O2 Sat POC ABG Base Excess FiO2 Sodium Potassium Chloride Carbon Dioxide Anion Gap BUN Creatinine Estimated GFR BUN/Creatinine Ratio Glucose POC Glucose 89 Lactic Acid Calcium Total Bilirubin AST ALT Alkaline Phosphatase Total Creatine Kinase CK-MB (CK-2) CK-MB (CK-2) Rel Index Troponin T Total Protein Albumin Albumin/Globulin Ratio Blood Type Antibody Screen Crossmatch 02/07/17 02/07/17 02/07/17 04:20 04:20 05:41 WBC RBC Hgb Hct MCV MCH MCHC RDW Plt Count Add Manual Diff Total Counted Seg Neuts % (Manual) Band Neutrophils % Lymphocytes % (Manual) Reactive Lymphs % (Man) Monocytes % (Manual) Eosinophils % (Manual) Basophils % (Manual) Metamyelocytes % Myelocytes % Promyelocytes % Blast Cells % Nucleated RBC % Seg Neutrophils # Man Band Neutrophils # Lymphocytes # (Manual) Abs React Lymphs (Man) Monocytes # (Manual) Eosinophils # (Manual) Basophils # (Manual) Metamyelocytes # Myelocytes # Promyelocytes # Blast Cells # WBC Morphology Hypersegmented Neuts Hyposegmented Neuts Hypogranular Neuts Smudge Cells Toxic Granulation Toxic Vacuolation Dohle Bodies Pelger-Huet Anomaly Ning Rods Platelet Estimate Clumped Platelets Plt Clumps, EDTA Large Platelets Giant Platelets Platelet Satelliting Plt Morphology Comment RBC Morphology Dimorphic RBCs Polychromasia Hypochromasia Poikilocytosis Anisocytosis Microcytosis Macrocytosis Spherocytes Pappenheimer Bodies Sickle Cells Target Cells Tear Drop Cells Ovalocytes Helmet Cells Patel-Luxora Bodies [place] Rings [place] Cells Bite Cells Crenated Cell Elliptocytes Acanthocytes (Spur) Rouleaux Hemoglobin C Crystals Schistocytes Malaria parasites Dipesh Bodies Hem Pathologist Commnt PT INR APTT POC ABG pH 7.011 L POC ABG pCO2 53.8 H POC ABG pO2 251 H POC ABG HCO3 13.6 POC ABG Total CO2 15 POC ABG O2 Sat 100 POC ABG Base Excess -17 FiO2 100 Sodium 169 H* D Potassium 4.9 D Chloride 119.4 H Carbon Dioxide 32 H D Anion Gap 23 BUN 68 H Creatinine 2.4 H Estimated GFR 24 BUN/Creatinine Ratio 28.33 Glucose 99 POC Glucose Lactic Acid Calcium 6.4 L D Total Bilirubin 0.20 AST 162 H ALT 46 Alkaline Phosphatase 47 Total Creatine Kinase 7016 H CK-MB (CK-2) 162.9 H CK-MB (CK-2) Rel Index 2.3 Troponin T 0.075 H Total Protein 3.1 L D Albumin 1.2 L Albumin/Globulin Ratio 0.6 Blood Type Antibody Screen Crossmatch 02/07/17 02/07/17 02/07/17 08:50 09:55 10:51 WBC RBC Hgb Hct MCV MCH MCHC RDW Plt Count Add Manual Diff Total Counted Seg Neuts % (Manual) Band Neutrophils % Lymphocytes % (Manual) Reactive Lymphs % (Man) Monocytes % (Manual) Eosinophils % (Manual) Basophils % (Manual) Metamyelocytes % Myelocytes % Promyelocytes % Blast Cells % Nucleated RBC % Seg Neutrophils # Man Band Neutrophils # Lymphocytes # (Manual) Abs React Lymphs (Man) Monocytes # (Manual) Eosinophils # (Manual) Basophils # (Manual) Metamyelocytes # Myelocytes # Promyelocytes # Blast Cells # WBC Morphology Hypersegmented Neuts Hyposegmented Neuts Hypogranular Neuts Smudge Cells Toxic Granulation Toxic Vacuolation Dohle Bodies Pelger-Huet Anomaly Ning Rods Platelet Estimate Clumped Platelets Plt Clumps, EDTA Large Platelets Giant Platelets Platelet Satelliting Plt Morphology Comment RBC Morphology Dimorphic RBCs Polychromasia Hypochromasia Poikilocytosis Anisocytosis Microcytosis Macrocytosis Spherocytes Pappenheimer Bodies Sickle Cells Target Cells Tear Drop Cells Ovalocytes Helmet Cells Patel-Luxora Bodies [place] Rings Chelle Cells Bite Cells Crenated Cell Elliptocytes Acanthocytes (Spur) Rouleaux Hemoglobin C Crystals Schistocytes Malaria parasites Dipesh Bodies Hem Pathologist Commnt PT INR APTT POC ABG pH POC ABG pCO2 POC ABG pO2 POC ABG HCO3 POC ABG Total CO2 POC ABG O2 Sat POC ABG Base Excess FiO2 Sodium Potassium Chloride Carbon Dioxide Anion Gap BUN Creatinine Estimated GFR BUN/Creatinine Ratio Glucose POC Glucose < 40 L 98 55 L Lactic Acid Calcium Total Bilirubin AST ALT Alkaline Phosphatase Total Creatine Kinase CK-MB (CK-2) CK-MB (CK-2) Rel Index Troponin T Total Protein Albumin Albumin/Globulin Ratio Blood Type Antibody Screen Crossmatch 02/07/17 11:08 WBC RBC Hgb Hct MCV MCH MCHC RDW Plt Count Add Manual Diff Total Counted Seg Neuts % (Manual) Band Neutrophils % Lymphocytes % (Manual) Reactive Lymphs % (Man) Monocytes % (Manual) Eosinophils % (Manual) Basophils % (Manual) Metamyelocytes % Myelocytes % Promyelocytes % Blast Cells % Nucleated RBC % Seg Neutrophils # Man Band Neutrophils # Lymphocytes # (Manual) Abs React Lymphs (Man) Monocytes # (Manual) Eosinophils # (Manual) Basophils # (Manual) Metamyelocytes # Myelocytes # Promyelocytes # Blast Cells # WBC Morphology Hypersegmented Neuts Hyposegmented Neuts Hypogranular Neuts Smudge Cells Toxic Granulation Toxic Vacuolation Dohle Bodies Pelger-Huet Anomaly Ning Rods Platelet Estimate Clumped Platelets Plt Clumps, EDTA Large Platelets Giant Platelets Platelet Satelliting Plt Morphology Comment RBC Morphology Dimorphic RBCs Polychromasia Hypochromasia Poikilocytosis Anisocytosis Microcytosis Macrocytosis Spherocytes Pappenheimer Bodies Sickle Cells Target Cells Tear Drop Cells Ovalocytes Helmet Cells Patel-Luxora Bodies [place] Rings [place] Cells Bite Cells Crenated Cell Elliptocytes Acanthocytes (Spur) Rouleaux Hemoglobin C Crystals Schistocytes Malaria parasites Dipesh Bodies Hem Pathologist Commnt PT INR APTT POC ABG pH 6.968 L POC ABG pCO2 44.5 POC ABG pO2 65 L POC ABG HCO3 10.2 POC ABG Total CO2 12 POC ABG O2 Sat 78 POC ABG Base Excess -22 FiO2 100 Sodium Potassium Chloride Carbon Dioxide Anion Gap BUN Creatinine Estimated GFR BUN/Creatinine Ratio Glucose POC Glucose Lactic Acid Calcium Total Bilirubin AST ALT Alkaline Phosphatase Total Creatine Kinase CK-MB (CK-2) CK-MB (CK-2) Rel Index Troponin T Total Protein Albumin Albumin/Globulin Ratio Blood Type Antibody Screen Crossmatch Assessment and Plan Pt seen and examined. Critically ill. Poor prognosis. Family in room, and making pt DNR. No current active bleed. No plans for imminent intervention unless situation changes.
--- NOTE | 2017-02-07 10:43 | XRay Report ---
AP CHEST: HISTORY: Central line placement Right IJ venous catheter has been inserted which terminates in the inferior SVC. There is no evidence for pneumothorax. Heart size is stable. Chronic interstitial changes in both lungs are stable. There is compressive atelectasis at the left lung base secondary to an elevated left hemidiaphragm. No change since earlier today at 1027 hrs. IMPRESSION: Right IJ venous catheter placement. No pneumothorax.
[2017-02-07] MEDS ORDERED: NACL 0.9% 1000 ML 1,000 ML IV ONE (11:00)
[2017-02-07] MEDS: D50W (25GM) Vial IV PRN ×2 (11:24→17:20)
[2017-02-07 12:06] LABS: ISTAT Base Excess -22; ISTAT HCO3 10.2; ISTAT PCO2 44.5 (35-45); ISTAT PH 6.968 (7.35-7.45); ISTAT PO2 65 (80-105); ISTAT SO2 78; ISTAT TCO2 12
[2017-02-07] MEDS: D5W 1,000 ML IV SCH ×2 (14:36→21:01)
[2017-02-07] MEDS ORDERED: D50W (25GM) Vial IV ONE (19:01)
[2017-02-07 22:26] LABS: Hematocrit 32.9 % (30.3-42.9); Hemoglobin 9.7 gm/dl (10.1-14.3)
[2017-02-07 22:28] LABS: Hemoglobin TNR gm/dl (10.1-14.3)
[2017-02-07 22:29] LABS: Hematocrit TNR % (30.3-42.9)
[2017-02-08] MEDS: LEVOPHED DRIP 4 MG/NS 250 ML 4 MG/250 ML BAG IV SCH (01:18)
[2017-02-08 01:30] VITALS: BP 47/29
--- NOTE | 2017-02-08 01:40 | Event Note ---
Date: 02/08/17 time of 0025
--- NOTE | 2017-02-08 13:10 | Death Summary ---
Summary - Providers Date of service: 02/08/17 Consults: 02/06/17 14:12 Consult to Physician [CONS] Routine Consulting Provider: TYLER BOURGEOIS Reason For Exam: septic shock Place consult to:: answering service Notified:: yes Phone number called:: [phone] Was contact made?: Yes If yes, spoke with:: Alisa Time called:: 17:33 02/07/17 04:30 Consult to Dietitian/Nutrition [CONS] Routine Physician Instructions: Reason For Exam: Reason for Consult: Evaluate nutritional intake Attending: LORI CASAREZ - summary Date of admission: 02/06/17 13:10 Date of : 02/08/17 Significant findings: Hospital Coarse: Patient is 76 yo woman with a history of htn, oa, and dlp from [facility] who presented with AMS and admitted by Hospitalist Dr. Loo for Confusion yesterday 02/06/17. Overnight the following occurred: STEVE SOLOMON called 353, Date: 02/07/[address] Sheth Cdx: Cardiac arrest, Patient required IV epinephrine, IV atropine, IV bicarbonate, I was called into patient's room patient started bradying down and recieved CPR [address] Gamez took over the code." per covering Hospitalist/Third Loader, Dr. Dahiana Gamez: "Patient became bradycardic, atropine was given She then went into PDA and ACLS protocol was initiated. Patient was shocked twice for V. fib She had copious amount of hematemesis There was of the case are ROSC Obtain stat labs now Start protonic drip, patient will be intubated, IV fluid bolus Patient has persistent tachycardia, heart rate in the 190s Adenosine 6 and 12 was given which slowed her rate to 110 Her underlying rhythm is A. fib, Cardizem 20 mg IV was given Patient was also started on maintenance fluid of D5 half-normal Her hemoglobin came back less than 5, she will be changing shoes providing EKG was obtained and reviewed, new changes on EKG Check cardiac enzymes, consult cardiology Patient is currently acidotic, ABG was reviewed, bicarbonate drip was discontinued Gift 2 ounce by cough and restart bicarbonate drip Patient has been on Levothroid drip prior to the code, will add Philip-Synephrine INR greater than 2.5, transfuse FFP Patient is full code, family was made aware" I was called and discuss with next of kin, grandsonGabino [phone]. Patient has no spouse, has 2 daughters. She lives with daughter up until the fall/left hip fracture and hospitalization on 01/20/17 to 01/25/17. She had left hip arthroplasty by Dr. Alberto on 01/23/17 and went to [facility] on . She was sent on xarelto for dvt prophylaxis. She presented again to [facility] ED yesterday 02/06/17 with AMS and hypotension. She has a living will and she is full code per Gabino, but he reports that his mother and aunt (patient 2 daughters are legal POA) and he will notify them. Patient is in SVT, MAP 61, I gave 150mg iv amiodarone and starting iv amiodarone drip. Repeat hemoglobin went from 9.1 to 4.9. Blood transfusion pending. Severe acidosis, hco3 drip pending. Leti Schwartz sister, daughter Sandy FOREMAN (Gabino's mother), Vaishali other daughter. Another CODE BLUE CALLED at 0835. Dr. Bourgeois was at bedside and patient lost pulse, PEA. Dr. Bourgeois running code, I called grandson and made him aware. ACLS was successful. But patient is hypothermia, bear hugger being applied. patty Lloyd notified again. DX: -Cardiac arrest, unsure exactly the etiology that lead to the cardiac arrest -Acute encephalopathy, unsure of why she became confused, possibly hypotensive related, most likely she has GIB (BUN 103, normal on 01/24/17), which lead to hypotension, which lead to the confusion, severe acidosis, ARF/ATN, Multi System organ failure. now her WBC was 33.2, so she also could be septic which could have lead to all of this also, she was on empiric Levaquin at the [place]. CXR just showed bilateral atelectasis and UA was negative. I don't know if she has diarrhea/C.diffe. -Shock, mutlifactorial: maxed out on 2 vasopressors, considering adding Vasopression -Severe Acidosis: bicarbonate drip -Acute combined Respiratory failure on MV -MSOF -ARF/aTN: improve bp -Acute Blood loss anemia: transfusion Patient is maxed out on Life sustaining medications and if her heart stops again , resuscitation most likely will be futile, reviewed patient healthcare declaration, will honor her wishes and allow natural if her heart stops again. Continue full support. D/w Granddaughter Joshua (Sandy's daughter and Gabino's sister, whom patient lives with) at bedside. No evidence of septic shock (no evidence of sepsis at this time-cultures are pending, cxr without obvious pneumonia, ua negative and no history of diarrhea for c.diffe given), most likely circulatory hypovolemic shock with hemoglobin of 4.9. DNR Patient at 0025 on 02/08/17 Suspected Cause of : Acute GastroIntestinal Hemorrhage with severe anemia
== END 2017-02-08 04:55 | DRG 208 ==
LOC: ED 09:26 → CC1 13:10
PROVIDERS: ADMIT Internal Medicine; ATTEND Internal Medicine
PROC: 05HM33Z Insertion of Infusion Device into Right Internal Jugular Vein, Percutaneous Approach (ICD-10-PCS; 2017-02-06)
PROC: B543ZZA Ultrasonography of Right Jugular Veins, Guidance (ICD-10-PCS; 2017-02-06)
PROC: 30233N1 Transfusion of Nonautologous Red Blood Cells into Peripheral Vein, Percutaneous Approach (ICD-10-PCS; principal; 2017-02-07)
PROC: 30233K1 Transfusion of Nonautologous Frozen Plasma into Peripheral Vein, Percutaneous Approach (ICD-10-PCS; 2017-02-07)
PROC: 30233L1 Transfusion of Nonautologous Fresh Plasma into Peripheral Vein, Percutaneous Approach (ICD-10-PCS; 2017-02-07)
PROC: 4A033R1 Measurement of Arterial Saturation, Peripheral, Percutaneous Approach (ICD-10-PCS; 2017-02-07)
PROC: 5A1935Z Respiratory Ventilation, Less than 24 Consecutive Hours (ICD-10-PCS; 2017-02-07)
PROC: 0BH17EZ Insertion of Endotracheal Airway into Trachea, Via Natural or Artificial Opening (ICD-10-PCS; 2017-02-07)
PROC: 5A12012 Performance of Cardiac Output, Single, Manual (ICD-10-PCS; 2017-02-07)
DX: J96.00 Acute respiratory failure, unspecified whether with hypoxia or hypercapnia (principal); G92 Toxic encephalopathy; N17.0 Acute kidney failure with tubular necrosis; R40.20 Unspecified coma; E87.0 Hyperosmolality and hypernatremia; D62 Acute posthemorrhagic anemia; K92.2 Gastrointestinal hemorrhage, unspecified; I46.9 Cardiac arrest, cause unspecified; I10 Essential (primary) hypertension; E78.00 Pure hypercholesterolemia, unspecified; M17.0 Bilateral primary osteoarthritis of knee; E16.2 Hypoglycemia, unspecified; Z96.649 Presence of unspecified artificial hip joint; E78.5 Hyperlipidemia, unspecified; Z88.2 Allergy status to sulfonamides; Z87.81 Personal history of (healed) traumatic fracture; Z82.49 Family history of ischemic heart disease and other diseases of the circulatory system
CPT/HCPCS: 31500; 36415; 36430; 36600; 70450; 71010; 80053; 80061; 81001; 82140; 82550; 82553; 82803; 82805; 82962; 83735; 84484; 85007; 85014; 85018; 85025; 85610; 85730; 86850; 86900; 86901; 86920; 87040; 87086; 93005; 93010; 94002; 94003; 96361; 96365; 96367; 96375; 96376; C9113; J0153; J0171; J0282; J0461; J0696; J1265; J2370; J2543; J3010; J3370; J7030; J7040; J7060; J7070; P9016; P9017